=== PATIENT | female | born 1945 | race African-American/Black ===

== ENCOUNTER 2017-03-09 11:20 | Inpatient (IN) | payer MEDICARE, OTHER ==
[2017-03-09 12:52] LABS: ADD MAN DIFF? NO
[2017-03-09 12:53] LABS: WHITE BLOOD COUNT 14.6 10^3/ul (4.8-10.8)
[2017-03-09 12:53] LABS: BASOPHILS % 0.1 % (0.0-2.0); HEMATOCRIT 32.5 % (37.0-47.0); LYMPHOCYTES # 0.6 10^3/ul (0.8-2.9); LYMPHOCYTES % 4.3 % (15.0-51.0); MEAN CORPUSCULAR HEMOGLOBIN 29.1 pg (29.0-33.0); MEAN CORPUSCULAR HGB CONC 33.8 g/dl (32.0-37.0); MEAN PLATELET VOLUME 9.1 fl (7.4-10.4); MONOCYTE # 0.5 10^3/ul (0.3-0.9); MONOCYTES % 3.5 % (0.0-11.0); NEUTROPHIL # 13.3 10^3/ul (1.6-7.5); NEUTROPHILS % 90.9 % (39.0-77.0); PLATELET COUNT 569 10^3/UL (140-415); RED BLOOD COUNT 3.78 10^6/ul (4.20-5.40); RED CELL DISTRIBUTION WIDTH 15.8 % (11.5-14.5)
[2017-03-09] MEDS: ONDANSETRON 4 MG INJ IV (12:57)
[2017-03-09] MEDS: HYDROmorphONE 1 MG/ML SYG IV (12:57)
[2017-03-09 13:12] LABS: INR 1.13; PROTIME 14.7 Sec (11.9-14.9); PT RATIO 1.1
[2017-03-09 13:14] LABS: ALANINE AMINOTRANSFERASE 30 IU/L (13-69); ALBUMIN 4.3 g/dl (3.3-4.9); ALBUMIN/GLOBULIN RATIO 1.04; ALKALINE PHOSPHATASE 183 IU/L (42-121); ANION GAP 25 (8-16); ASPARTATE AMINO TRANSFERASE 44 IU/L (15-46); BLOOD UREA NITROGEN 34 mg/dl (7-20); CALCIUM 10.7 mg/dl (8.4-10.2); CARBON DIOXIDE 23 mmol/L (21-31); CHLORIDE 94 mmol/L (97-110); CREATININE 1.61 mg/dl (0.44-1.00); GLUCOSE 180 mg/dl (70-220); LIPASE 90 U/L (23-300); POTASSIUM 4.5 mmol/L (3.5-5.1); SODIUM 137 mmol/L (135-144); TOTAL PROTEIN 8.4 g/dl (6.1-8.1)
[2017-03-09] MEDS: morphine 4 MG/ML VIAL IV (13:23)
[2017-03-09 14:04] LABS: TROPONIN-I < 0.012 ng/ml (0.00-0.12)
[2017-03-09] MEDS ORDERED: ONDANSETRON 4 MG INJ IV (15:00)
[2017-03-09] MEDS ORDERED: ACETAMINOPHEN 325 MG TAB PO (15:00)
[2017-03-09 16:47] LABS: LACTIC ACID 1.2 mmol/L (0.5-2.0)
[2017-03-09] MEDS ORDERED: NALOXONE (0.4 MG/ML) INJ (17:49)
[2017-03-09] MEDS: NALOXONE (0.4 MG/ML) INJ IV (19:09)
[2017-03-09] MEDS: SOD CHLORIDE 0.9% 1,000 ML IV (19:13)
[2017-03-09] MEDS: ROPINIROLE 0.25 MG TAB PO (22:06)
[2017-03-09] MEDS: METOPROLOL 50 MG TAB PO (22:06)
[2017-03-09] MEDS: metroNIDAZOLE 500 MG/NS (PMX) 100 ML IVPB (22:06)
[2017-03-09] MEDS: D5W-0.45 NACL + KCL 20 MEQ 1,000 ML IV (22:07)
[2017-03-09] MEDS: AMPICILLIN/SULB 3 GM/NS (PMX) 100 ML IVPB (22:40)
[2017-03-09 22:41] LABS: LACTIC ACID 1.1 mmol/L (0.5-2.0)
[2017-03-10] MEDS: HYDROmorphONE 2 MG/ML SYG IV ×3 (00:06→08:14)
[2017-03-10 01:27] LABS: LACTIC ACID 0.9 mmol/L (0.5-2.0)
[2017-03-10 05:41] LABS: WHITE BLOOD COUNT 12.7 10^3/ul (4.8-10.8)
[2017-03-10 05:41] LABS: HEMATOCRIT 29.9 % (37.0-47.0); HEMOGLOBIN 9.8 g/dl (12.0-16.0); MEAN CORPUSCULAR HEMOGLOBIN 28.3 pg (29.0-33.0); MEAN CORPUSCULAR HGB CONC 32.8 g/dl (32.0-37.0); MEAN CORPUSCULAR VOLUME 86.4 fl (82.0-101.0); MEAN PLATELET VOLUME 9.1 fl (7.4-10.4); PLATELET COUNT 505 10^3/UL (140-415); RED BLOOD COUNT 3.46 10^6/ul (4.20-5.40); RED CELL DISTRIBUTION WIDTH 15.9 % (11.5-14.5)
[2017-03-10] MEDS: metroNIDAZOLE 500 MG/NS (PMX) 100 ML IVPB ×2 (05:49→14:28)
[2017-03-10 05:57] LABS: POSITIVE DIFF @See below
[2017-03-10 05:58] LABS: ADD MAN DIFF? YES
[2017-03-10 06:14] LABS: AADO2 Arterial 555.2 mmHg (7.0-24.0); Allen Test ACCEPTAB; Arterial Base Excess 1.8 mmol/L (-3.0-3); Arterial Blood Gas Oxygen Sat 96.5 mmHG (95.0-100.0); Arterial COHb 0 % (0.0-3.0); Arterial Fraction of Oxyhgb 96.2 % (93.0-99.0); Arterial HCO3 29.5 mmol/L (22.0-26.0); Arterial MetHb 0.3 % (0.0-1.5); Arterial Total Hemglobin 11.1 g/dl (12.0-18.0); Arterial pCO2 63.3 mmhg (35-45); MODE MASK - NRB; Site Right Radial
[2017-03-10 06:24] LABS: ALANINE AMINOTRANSFERASE 25 IU/L (13-69); ALBUMIN 3.8 g/dl (3.3-4.9); ALBUMIN/GLOBULIN RATIO 0.92; ALKALINE PHOSPHATASE 148 IU/L (42-121); ANION GAP 18 (8-16); ASPARTATE AMINO TRANSFERASE 42 IU/L (15-46); BLOOD UREA NITROGEN 34 mg/dl (7-20); CALCIUM 10.2 mg/dl (8.4-10.2); CARBON DIOXIDE 30 mmol/L (21-31); CHLORIDE 95 mmol/L (97-110); CREATININE 1.41 mg/dl (0.44-1.00); GLUCOSE 181 mg/dl (70-220); POTASSIUM 5.2 mmol/L (3.5-5.1); SODIUM 138 mmol/L (135-144); TOTAL PROTEIN 7.9 g/dl (6.1-8.1)
[2017-03-10] MEDS: D5W-0.45 NACL + KCL 20 MEQ 1,000 ML IV ×2 (07:30→14:28)
[2017-03-10 07:46] LABS: ERYTHROCYTE SEDIMENTATION RATE 133 mm/Hr (0-30)
[2017-03-10] MEDS: NALOXONE (0.4 MG/ML) INJ IV (07:54)
[2017-03-10 08:02] LABS: BAND NEUTROPHILS #M 0.3 10^3/ul (0.0-0.6); BAND NEUTROPHILS % (M) 3 % (0-4); ELLIPTO 1+ (0-0); HYPOCHROMASIA 1+ (0-0); LYMPHOCYTES #M 0.8 10^3/ul (0.8-2.9); LYMPHOCYTES % (M) 7 % (15-51); MONOCYTE #M 0.8 10^3/ul (0.3-0.9); MONOCYTES % (M) 7 % (0-11); PLATELET ESTIMATE INCREASED; POIKILOCYTOSIS 1+ (0-0); POLYCHROMASIA 1+ (0-0); REACTIVE LYMPHOCYTES #M 0.1 10^3/ul (0.0-0.0); REACTIVE LYMPHOCYTES% (M) 1 % (0-0); SEG NEUT #M 10.5 10^3/ul (1.6-7.5); SEGMENTED NEUTROPHILS (M) % 82 % (39-77); SMUDGE%M 2 % (0-0); TARGET CELLS 1+ (0-0)
[2017-03-10] MEDS: METOPROLOL 50 MG TAB PO (09:00)
[2017-03-10] MEDS ORDERED: morphine 2 MG INJ (10:22)
[2017-03-10] MEDS: BUPROPION 75 MG TAB PO (10:26)
[2017-03-10] MEDS: AMPICILLIN/SULB 3 GM/NS (PMX) 100 ML IVPB (10:26)
[2017-03-10] MEDS: ARIPIPRAZOLE 10 MG TAB PO (10:26)
[2017-03-10] MEDS: morphine 2 MG INJ IV (10:27)
[2017-03-10] MEDS ORDERED: VANCOMYCIN IV PER PHARMACY XX (16:00)
[2017-03-10] MEDS: LORAZEPAM 2 MG INJ IV (16:33)
[2017-03-10] MEDS ORDERED: GLUCOSE GEL 15 GRAM TUBE PO ×2 (17:00)
[2017-03-10] MEDS ORDERED: GLUCAGON 1 MG INJ IM (17:00)
[2017-03-10] MEDS ORDERED: DEXTROSE 50% 50 ML SYRINGE IV ×2 (17:00)
[2017-03-10] MEDS ORDERED: GLUCOSE GEL 15 GRAM TUBE BUCCAL (17:00)
[2017-03-10] MEDS: VANCOMYCIN 1 GM 250 ML IVPB (17:27)
[2017-03-10] MEDS: INSULIN ASPART [NOVOLOG] 3 ML PEN SC ×2 (17:30→20:40)
[2017-03-10] MEDS: PIPER-TAZO 2.25 GM (PMX) 50 ML IVPB ×2 (17:37→23:55)
[2017-03-10] MEDS: ALPRAZOLAM 0.5 MG TAB PO (20:32)
[2017-03-10] MEDS: QUETIAPINE 25 MG TAB PO (20:33)
[2017-03-10] MEDS ORDERED: ALPRAZOLAM 1 MG TAB PO (21:00)
[2017-03-10] MEDS: ROPINIROLE 0.25 MG TAB PO (22:30)
[2017-03-11] MEDS: INSULIN ASPART [NOVOLOG] 3 ML PEN SC ×6 (00:53→21:00)
[2017-03-11] MEDS: D5W-0.45 NACL + KCL 20 MEQ 1,000 ML IV ×3 (03:30→22:24)
[2017-03-11] MEDS: PIPER-TAZO 2.25 GM (PMX) 50 ML IVPB ×4 (05:11→23:06)
[2017-03-11] MEDS ORDERED: ALPRAZOLAM 0.25 MG TAB PO (09:10)
[2017-03-11] MEDS ORDERED: ZOLEDRONIC ACID 4 MG in SOD CHLORIDE 0.9% 100 ML IVPB (09:30)
[2017-03-11] MEDS: HYDROmorphONE 0.2 MG/ML PCA IV ×2 (10:27→22:31)
[2017-03-11] MEDS ORDERED: ACETAMINOPHEN 1000MG/100ML IV 100 ML IVPB (11:00)
[2017-03-11] MEDS ORDERED: ALPRAZOLAM 0.25 MG TAB (11:48)
[2017-03-11] MEDS: ALPRAZOLAM 0.25 MG TAB PO ×2 (11:51→21:03)
[2017-03-11 12:06] LABS: ADD MAN DIFF? NO
[2017-03-11 12:10] LABS: WHITE BLOOD COUNT 8.9 10^3/ul (4.8-10.8)
[2017-03-11 12:10] LABS: BASOPHILS % 0.1 % (0.0-2.0); EOSINOPHILS % 0.2 % (0.0-7.0); HEMATOCRIT 29.6 % (37.0-47.0); HEMOGLOBIN 9.9 g/dl (12.0-16.0); LYMPHOCYTES # 0.9 10^3/ul (0.8-2.9); LYMPHOCYTES % 10.1 % (15.0-51.0); MEAN CORPUSCULAR HEMOGLOBIN 28.6 pg (29.0-33.0); MEAN CORPUSCULAR HGB CONC 33.4 g/dl (32.0-37.0); MEAN CORPUSCULAR VOLUME 85.5 fl (82.0-101.0); MEAN PLATELET VOLUME 8.8 fl (7.4-10.4); MONOCYTE # 0.7 10^3/ul (0.3-0.9); MONOCYTES % 8.3 % (0.0-11.0); NEUTROPHIL # 7.2 10^3/ul (1.6-7.5); NEUTROPHILS % 80.5 % (39.0-77.0); PLATELET COUNT 495 10^3/UL (140-415); RED BLOOD COUNT 3.46 10^6/ul (4.20-5.40); RED CELL DISTRIBUTION WIDTH 15.7 % (11.5-14.5)
[2017-03-11 12:33] LABS: ANION GAP 13 (8-16); BLOOD UREA NITROGEN 18 mg/dl (7-20); CALCIUM 10.2 mg/dl (8.4-10.2); CARBON DIOXIDE 28 mmol/L (21-31); CHLORIDE 101 mmol/L (97-110); CREATININE 0.89 mg/dl (0.44-1.00); GLUCOSE 142 mg/dl (70-220); POTASSIUM 3.9 mmol/L (3.5-5.1); SODIUM 138 mmol/L (135-144)
[2017-03-11] MEDS: METHADONE (1 MG/1 ML PO SYG) PO ×2 (13:14→21:06)
[2017-03-11] MEDS ORDERED: VANCOMYCIN 500MG/NS (PMX) 100 ML IVPB (17:00)
[2017-03-11] MEDS: QUETIAPINE 25 MG TAB PO (21:04)
[2017-03-11] MEDS: ROPINIROLE 0.25 MG TAB PO (21:05)
[2017-03-11] MEDS: METHYLPREDNISOLONE 125 MG INJ IV (21:09)
[2017-03-12] MEDS: hydrALAzine 20 MG INJ IV ×3 (00:47→17:30)
[2017-03-12] MEDS: INSULIN ASPART [NOVOLOG] 3 ML PEN SC ×6 (01:00→22:13)
[2017-03-12] MEDS: PIPER-TAZO 2.25 GM (PMX) 50 ML IVPB ×2 (06:21→11:26)
[2017-03-12] MEDS: METHADONE (1 MG/1 ML PO SYG) PO ×3 (06:22→22:16)
[2017-03-12] MEDS: ALPRAZOLAM 0.25 MG TAB PO ×2 (06:31→22:26)
[2017-03-12 08:55] LABS: ADD MAN DIFF? NO
[2017-03-12 09:03] LABS: ABNORMAL IP MESSAGE 1; HEMATOCRIT 29.2 % (37.0-47.0); HEMOGLOBIN 9.7 g/dl (12.0-16.0); LYMPHOCYTES # 0.6 10^3/ul (0.8-2.9); LYMPHOCYTES % 7.5 % (15.0-51.0); MEAN CORPUSCULAR HEMOGLOBIN 28.4 pg (29.0-33.0); MEAN CORPUSCULAR HGB CONC 33.2 g/dl (32.0-37.0); MEAN CORPUSCULAR VOLUME 85.6 fl (82.0-101.0); MEAN PLATELET VOLUME 8.9 fl (7.4-10.4); MONOCYTE # 0.4 10^3/ul (0.3-0.9); MONOCYTES % 4.9 % (0.0-11.0); NEUTROPHIL # 6.3 10^3/ul (1.6-7.5); NEUTROPHILS % 86.1 % (39.0-77.0); PLATELET COUNT 487 10^3/UL (140-415); RED BLOOD COUNT 3.41 10^6/ul (4.20-5.40); RED CELL DISTRIBUTION WIDTH 15.9 % (11.5-14.5)
[2017-03-12 09:03] LABS: WHITE BLOOD COUNT 7.4 10^3/ul (4.8-10.8)
[2017-03-12 09:07] LABS: POSITIVE DIFF @See below
[2017-03-12 09:36] LABS: ANION GAP 14 (8-16); BLOOD UREA NITROGEN 13 mg/dl (7-20); CALCIUM 9.5 mg/dl (8.4-10.2); CARBON DIOXIDE 26 mmol/L (21-31); CHLORIDE 102 mmol/L (97-110); CREATININE 0.82 mg/dl (0.44-1.00); GLUCOSE 150 mg/dl (70-220); POTASSIUM 4.6 mmol/L (3.5-5.1); SODIUM 137 mmol/L (135-144)
[2017-03-12] MEDS: METHYLPREDNISOLONE 125 MG INJ IV ×2 (09:49→22:15)
[2017-03-12] MEDS: HYDROmorphONE 0.2 MG/ML PCA IV (11:15)
[2017-03-12] MEDS: D5W-0.45 NACL + KCL 20 MEQ 1,000 ML IV ×2 (13:00→19:30)
[2017-03-12] MEDS: CEFTRIAXONE 1 GM/50 ML (PMX) 50 ML IVPB (16:15)
[2017-03-12] MEDS: ACETAMINOPHEN 1000MG/100ML IV 100 ML IVPB (17:30)
[2017-03-12] MEDS: ROPINIROLE 0.25 MG TAB PO (22:08)
[2017-03-12] MEDS: QUETIAPINE 25 MG TAB PO (22:14)
[2017-03-13] MEDS: QUETIAPINE 25 MG TAB PO ×2 (00:27→20:13)
[2017-03-13] MEDS: ACETAMINOPHEN 1000MG/100ML IV 100 ML IVPB ×5 (00:28→19:30)
[2017-03-13] MEDS: D5W-0.45 NACL + KCL 20 MEQ 1,000 ML IV ×2 (00:34→11:31)
[2017-03-13] MEDS: INSULIN ASPART [NOVOLOG] 3 ML PEN SC ×6 (00:57→20:13)
[2017-03-13] MEDS: hydrALAzine 20 MG INJ IV ×4 (03:35→23:27)
[2017-03-13] MEDS: METHADONE (1 MG/1 ML PO SYG) PO ×3 (06:51→21:10)
[2017-03-13 09:27] LABS: ADD MAN DIFF? NO
[2017-03-13 09:34] LABS: WHITE BLOOD COUNT 8.8 10^3/ul (4.8-10.8)
[2017-03-13 09:34] LABS: HEMATOCRIT 28.3 % (37.0-47.0); HEMOGLOBIN 9.6 g/dl (12.0-16.0); LYMPHOCYTES # 0.6 10^3/ul (0.8-2.9); LYMPHOCYTES % 7.2 % (15.0-51.0); MEAN CORPUSCULAR HEMOGLOBIN 28.9 pg (29.0-33.0); MEAN CORPUSCULAR HGB CONC 33.9 g/dl (32.0-37.0); MEAN CORPUSCULAR VOLUME 85.2 fl (82.0-101.0); MEAN PLATELET VOLUME 9.2 fl (7.4-10.4); MONOCYTE # 0.4 10^3/ul (0.3-0.9); MONOCYTES % 4.1 % (0.0-11.0); NEUTROPHIL # 7.7 10^3/ul (1.6-7.5); NEUTROPHILS % 87.1 % (39.0-77.0); PLATELET COUNT 478 10^3/UL (140-415); RED BLOOD COUNT 3.32 10^6/ul (4.20-5.40); RED CELL DISTRIBUTION WIDTH 15.8 % (11.5-14.5)
[2017-03-13] MEDS: METHYLPREDNISOLONE 125 MG INJ IV ×2 (10:34→20:12)
[2017-03-13] MEDS: HYDROmorphONE 0.2 MG/ML PCA IV (11:33)
[2017-03-13] MEDS: ALPRAZOLAM 0.25 MG TAB PO ×2 (11:44→23:26)
[2017-03-13] MEDS: FERROUS FUMARATE (SR) TAB PO (15:20)
[2017-03-13] MEDS: CEFTRIAXONE 1 GM/50 ML (PMX) 50 ML IVPB (17:17)
[2017-03-13] MEDS: ROPINIROLE 0.25 MG TAB PO (20:12)
[2017-03-13] MEDS: METOPROLOL 50 MG TAB PO (20:13)
[2017-03-14] MEDS: ACETAMINOPHEN 1000MG/100ML IV 100 ML IVPB ×5 (00:31→23:30)
[2017-03-14] MEDS: NS + KCL 20 MEQ 1,000 ML IV ×2 (00:55→13:31)
[2017-03-14] MEDS: METHADONE (1 MG/1 ML PO SYG) PO ×3 (05:06→21:56)
[2017-03-14] MEDS: HYDROmorphONE 0.2 MG/ML PCA IV (05:25)
[2017-03-14] MEDS: FERROUS FUMARATE (SR) TAB PO (08:16)
[2017-03-14] MEDS: METOPROLOL 50 MG TAB PO ×2 (08:16→20:31)
[2017-03-14] MEDS: NIFEdipine (XL) 90 MG TAB PO (08:16)
[2017-03-14] MEDS: METHYLPREDNISOLONE 125 MG INJ IV ×2 (08:17→20:32)
[2017-03-14] MEDS: hydrALAzine 20 MG INJ IV (10:16)
[2017-03-14] MEDS: LIDOCAINE 1% (MDV) 20 ML INJ ×2 (10:40→15:10)
[2017-03-14] MEDS: ALPRAZOLAM 0.25 MG TAB PO (12:01)
[2017-03-14 12:03] LABS: NIL 0.04 IU/mL; QUANTIFERON(R)-TB GOLD INDETERMINATE (NEGATIVE); TB-NIL <0.00 IU/mL
[2017-03-14] MEDS: FENTAnyl 50 MCG/ML VIAL ×2 (15:09→15:41)
[2017-03-14] MEDS: MIDAZOLAM 1 MG/ML 2 ML INJ ×2 (15:10→15:42)
[2017-03-14] MEDS: SOD CHLORIDE 0.9% 500 ML (15:10)
[2017-03-14] MEDS: CEFTRIAXONE 1 GM/50 ML (PMX) 50 ML IVPB (17:05)
[2017-03-14] MEDS: ROPINIROLE 0.25 MG TAB PO (20:29)
[2017-03-14] MEDS: QUETIAPINE 25 MG TAB PO (20:30)
[2017-03-14] MEDS: ALPRAZOLAM 1 MG TAB PO (21:55)
[2017-03-14] MEDS ORDERED: ALPRAZOLAM 0.25 MG TAB PO (22:00)
[2017-03-15] MEDS: HYDROmorphONE 0.2 MG/ML PCA IV ×2 (01:33→18:45)
[2017-03-15] MEDS: NS + KCL 20 MEQ 1,000 ML IV ×3 (03:36→21:15)
[2017-03-15] MEDS: ACETAMINOPHEN 1000MG/100ML IV 100 ML IVPB ×4 (05:03→22:41)
[2017-03-15] MEDS: hydrALAzine 20 MG INJ IV (05:05)
[2017-03-15] MEDS: ALPRAZOLAM 1 MG TAB PO ×3 (06:08→21:05)
[2017-03-15] MEDS: METHADONE (1 MG/1 ML PO SYG) PO ×3 (06:08→21:25)
[2017-03-15 08:18] LABS: ADD MAN DIFF? NO
[2017-03-15 08:25] LABS: WHITE BLOOD COUNT 9.1 10^3/ul (4.8-10.8)
[2017-03-15 08:25] LABS: BASOPHILS % 0.1 % (0.0-2.0); HEMATOCRIT 25.2 % (37.0-47.0); HEMOGLOBIN 8.5 g/dl (12.0-16.0); LYMPHOCYTES # 1.2 10^3/ul (0.8-2.9); LYMPHOCYTES % 12.9 % (15.0-51.0); MEAN CORPUSCULAR HEMOGLOBIN 28.7 pg (29.0-33.0); MEAN CORPUSCULAR HGB CONC 33.7 g/dl (32.0-37.0); MEAN CORPUSCULAR VOLUME 85.1 fl (82.0-101.0); MEAN PLATELET VOLUME 8.4 fl (7.4-10.4); MONOCYTE # 0.6 10^3/ul (0.3-0.9); MONOCYTES % 6.1 % (0.0-11.0); NEUTROPHIL # 7.2 10^3/ul (1.6-7.5); NEUTROPHILS % 79.6 % (39.0-77.0); PLATELET COUNT 415 10^3/UL (140-415); RED BLOOD COUNT 2.96 10^6/ul (4.20-5.40)
[2017-03-15] MEDS: FERROUS FUMARATE (SR) TAB PO (08:35)
[2017-03-15] MEDS: PROMETHAZINE 25 MG TAB PO (08:35)
[2017-03-15] MEDS: METOPROLOL 50 MG TAB PO ×2 (08:35→21:05)
[2017-03-15] MEDS: METHYLPREDNISOLONE 125 MG INJ IV ×2 (08:36→21:06)
[2017-03-15] MEDS: NIFEdipine (XL) 90 MG TAB PO (08:36)
[2017-03-15 08:58] LABS: ALANINE AMINOTRANSFERASE 41 IU/L (13-69); ALBUMIN/GLOBULIN RATIO 0.93; ALKALINE PHOSPHATASE 123 IU/L (42-121); ANION GAP 12 (8-16); ASPARTATE AMINO TRANSFERASE 43 IU/L (15-46); BLOOD UREA NITROGEN 13 mg/dl (7-20); CARBON DIOXIDE 24 mmol/L (21-31); CHLORIDE 106 mmol/L (97-110); CREATININE 0.66 mg/dl (0.44-1.00); GLUCOSE 109 mg/dl (70-220); POTASSIUM 3.7 mmol/L (3.5-5.1); SODIUM 138 mmol/L (135-144); TOTAL PROTEIN 6.2 g/dl (6.1-8.1)
[2017-03-15 09:21] LABS: PREALBUMIN 20.1 mg/dl (17.6-36.0)
[2017-03-15] MEDS: INFLUENZA VIRUS VACCINE 0.5 ML SYG IM* (13:53)
[2017-03-15] MEDS: CEFTRIAXONE 1 GM/50 ML (PMX) 50 ML IVPB (16:26)
[2017-03-15] MEDS: QUETIAPINE 25 MG TAB PO (21:06)
[2017-03-15] MEDS: ROPINIROLE 0.25 MG TAB PO (21:13)
[2017-03-16] MEDS: METHADONE (1 MG/1 ML PO SYG) PO ×3 (05:08→21:23)
[2017-03-16] MEDS: ACETAMINOPHEN 1000MG/100ML IV 100 ML IVPB ×4 (05:08→22:55)
[2017-03-16] MEDS: ALPRAZOLAM 1 MG TAB PO ×3 (05:08→21:23)
[2017-03-16 06:34] LABS: ADD MAN DIFF? NO
[2017-03-16 06:46] LABS: WHITE BLOOD COUNT 7.8 10^3/ul (4.8-10.8)
[2017-03-16 06:46] LABS: BASOPHILS % 0.1 % (0.0-2.0); HEMATOCRIT 26.4 % (37.0-47.0); HEMOGLOBIN 8.9 g/dl (12.0-16.0); LYMPHOCYTES # 0.8 10^3/ul (0.8-2.9); LYMPHOCYTES % 10.8 % (15.0-51.0); MEAN CORPUSCULAR HEMOGLOBIN 28.7 pg (29.0-33.0); MEAN CORPUSCULAR HGB CONC 33.7 g/dl (32.0-37.0); MEAN CORPUSCULAR VOLUME 85.2 fl (82.0-101.0); MONOCYTE # 0.4 10^3/ul (0.3-0.9); MONOCYTES % 4.6 % (0.0-11.0); NEUTROPHIL # 6.4 10^3/ul (1.6-7.5); NEUTROPHILS % 82.8 % (39.0-77.0); PLATELET COUNT 437 10^3/UL (140-415); RED CELL DISTRIBUTION WIDTH 16.5 % (11.5-14.5); RETICULOCYTE COUNT # 0.056 X10^6 (0.020-0.110); RETICULOCYTE COUNT % 1.8 % (0.5-1.5)
[2017-03-16 07:09] LABS: IRON 46 ug/dl (35-150)
[2017-03-16 07:19] LABS: % IRON SATURATION 27 % SAT (22-52); TOTAL IRON BINDING CAPACITY 171 ug/dl (241-421)
[2017-03-16 07:43] LABS: THYROID STIMULATING HORMONE 0.057 MIU/L (0.465-4.680)
[2017-03-16] MEDS: NS + KCL 20 MEQ 1,000 ML IV ×3 (08:12→22:30)
[2017-03-16 08:18] LABS: FOLATE 8.5 ng/ml (2.8-20.0)
[2017-03-16] MEDS: METHYLPREDNISOLONE 125 MG INJ IV ×2 (08:18→21:22)
[2017-03-16] MEDS: NIFEdipine (XL) 90 MG TAB PO (08:20)
[2017-03-16] MEDS: METOPROLOL 50 MG TAB PO ×2 (08:20→21:22)
[2017-03-16] MEDS: FERROUS FUMARATE (SR) TAB PO (08:21)
[2017-03-16] MEDS: HYDROmorphONE 0.2 MG/ML PCA IV (10:22)
[2017-03-16] MEDS: CEFTRIAXONE 1 GM/50 ML (PMX) 50 ML IVPB (16:35)
[2017-03-16] MEDS: QUETIAPINE 25 MG TAB PO (21:22)
[2017-03-16] MEDS: BUPROPION 75 MG TAB PO (21:22)
[2017-03-16] MEDS: ROPINIROLE 0.25 MG TAB PO (21:23)
[2017-03-17] MEDS: HYDROmorphONE 0.2 MG/ML PCA IV ×2 (02:07→16:06)
[2017-03-17] MEDS: hydrALAzine 20 MG INJ IV (02:15)
[2017-03-17] MEDS: ACETAMINOPHEN 1000MG/100ML IV 100 ML IVPB ×3 (05:46→18:05)
[2017-03-17] MEDS: METHADONE (1 MG/1 ML PO SYG) PO ×3 (05:47→21:12)
[2017-03-17] MEDS: ALPRAZOLAM 1 MG TAB PO ×3 (05:47→21:13)
[2017-03-17] MEDS: NS + KCL 20 MEQ 1,000 ML IV ×2 (06:00→12:48)
[2017-03-17 06:13] LABS: ADD MAN DIFF? NO
[2017-03-17 06:19] LABS: HEMATOCRIT 24.9 % (37.0-47.0); HEMOGLOBIN 8.3 g/dl (12.0-16.0); LYMPHOCYTES # 0.9 10^3/ul (0.8-2.9); MEAN CORPUSCULAR HEMOGLOBIN 28.6 pg (29.0-33.0); MEAN CORPUSCULAR HGB CONC 33.3 g/dl (32.0-37.0); MEAN CORPUSCULAR VOLUME 85.9 fl (82.0-101.0); MEAN PLATELET VOLUME 9.3 fl (7.4-10.4); MONOCYTE # 0.4 10^3/ul (0.3-0.9); NEUTROPHIL # 7.3 10^3/ul (1.6-7.5); PLATELET COUNT 446 10^3/UL (140-415); RED CELL DISTRIBUTION WIDTH 16.7 % (11.5-14.5)
[2017-03-17 06:19] LABS: WHITE BLOOD COUNT 8.8 10^3/ul (4.8-10.8)
[2017-03-17 07:01] LABS: ANION GAP 11 (8-16); BLOOD UREA NITROGEN 15 mg/dl (7-20); CALCIUM 8.8 mg/dl (8.4-10.2); CARBON DIOXIDE 22 mmol/L (21-31); CHLORIDE 112 mmol/L (97-110); CREATININE 0.66 mg/dl (0.44-1.00); GLUCOSE 123 mg/dl (70-220); POTASSIUM 4.2 mmol/L (3.5-5.1); SODIUM 141 mmol/L (135-144)
[2017-03-17] MEDS: NIFEdipine (XL) 90 MG TAB PO (08:23)
[2017-03-17] MEDS: BUPROPION 75 MG TAB PO ×2 (08:25→20:36)
[2017-03-17] MEDS: METOPROLOL 50 MG TAB PO ×2 (08:25→20:37)
[2017-03-17] MEDS: FERROUS FUMARATE (SR) TAB PO (08:26)
[2017-03-17] MEDS: METHYLPREDNISOLONE 125 MG INJ IV ×2 (08:26→20:36)
[2017-03-17] MEDS: ARIPIPRAZOLE 5 MG TAB PO (08:26)
[2017-03-17] MEDS ORDERED: ZOLEDRONIC ACID 4 MG in SOD CHLORIDE 0.9% 100 ML IVPB (11:00)
[2017-03-17 11:41] LABS: CARCINOEMBRYONIC ANTIGEN 2.3 ng/ml (0.0-5.0)
[2017-03-17] MEDS: SOD CHLORIDE 0.9% IVPB (16:08)
[2017-03-17] MEDS: ZOLEDRONIC ACID IVPB (16:08)
[2017-03-17] MEDS: CEFTRIAXONE 1 GM/50 ML (PMX) 50 ML IVPB (16:15)
[2017-03-17] MEDS: ROPINIROLE 0.25 MG TAB PO (20:36)
[2017-03-17] MEDS: QUETIAPINE 25 MG TAB PO (20:36)
[2017-03-18] MEDS: ACETAMINOPHEN 1000MG/100ML IV 100 ML IVPB ×5 (00:12→23:53)
[2017-03-18] MEDS: NS + KCL 20 MEQ 1,000 ML IV ×2 (00:15→15:37)
[2017-03-18] MEDS: DIPHENHYDRAMINE 50 MG INJ IV (00:30)
[2017-03-18] MEDS: FUROSEMIDE 20 MG INJ IV (00:30)
[2017-03-18] MEDS: ACETAMINOPHEN 500 MG TAB PO (00:30)
[2017-03-18] MEDS: ALPRAZOLAM 1 MG TAB PO ×3 (05:47→21:35)
[2017-03-18] MEDS: METHADONE (1 MG/1 ML PO SYG) PO ×2 (05:48→14:06)
[2017-03-18] MEDS: ARIPIPRAZOLE 5 MG TAB PO ×2 (09:19→09:29)
[2017-03-18] MEDS: METHYLPREDNISOLONE 125 MG INJ IV ×2 (09:19→20:39)
[2017-03-18] MEDS: FERROUS FUMARATE (SR) TAB PO (09:20)
[2017-03-18] MEDS: BUPROPION 75 MG TAB PO ×2 (09:20→20:39)
[2017-03-18] MEDS: NIFEdipine (XL) 90 MG TAB PO (09:22)
[2017-03-18] MEDS: METOPROLOL 50 MG TAB PO ×2 (09:22→20:39)
[2017-03-18] MEDS: HYDROmorphONE 0.2 MG/ML PCA IV (11:28)
[2017-03-18] MEDS: hydrALAzine 20 MG INJ IV (13:13)
[2017-03-18] MEDS: CEFTRIAXONE 1 GM/50 ML (PMX) 50 ML IVPB (15:38)
[2017-03-18 16:11] LABS: HEMATOCRIT 26.2 % (37.0-47.0); HEMOGLOBIN 8.8 g/dl (12.0-16.0)
[2017-03-18] MEDS: ROPINIROLE 0.25 MG TAB PO (20:38)
[2017-03-18] MEDS: QUETIAPINE 25 MG TAB PO (20:38)
[2017-03-18] MEDS: METHADONE (1 MG/ML 5 ML PO UD SYG) PO (21:37)
[2017-03-19] MEDS: ACETAMINOPHEN 1000MG/100ML IV 100 ML IVPB ×3 (05:26→17:30)
[2017-03-19] MEDS: METHADONE (1 MG/ML 5 ML PO UD SYG) PO ×3 (05:26→22:28)
[2017-03-19] MEDS: ALPRAZOLAM 1 MG TAB PO ×3 (05:26→22:29)
[2017-03-19] MEDS: HYDROmorphONE 0.2 MG/ML PCA IV ×2 (05:27→18:17)
[2017-03-19 05:37] LABS: ADD MAN DIFF? NO
[2017-03-19 05:44] LABS: WHITE BLOOD COUNT 8.6 10^3/ul (4.8-10.8)
[2017-03-19 05:44] LABS: BASOPHILS % 0.1 % (0.0-2.0); EOSINOPHILS % 0.1 % (0.0-7.0); HEMOGLOBIN 7.8 g/dl (12.0-16.0); LYMPHOCYTES # 0.7 10^3/ul (0.8-2.9); LYMPHOCYTES % 7.7 % (15.0-51.0); MEAN CORPUSCULAR HEMOGLOBIN 29.1 pg (29.0-33.0); MEAN CORPUSCULAR HGB CONC 33.9 g/dl (32.0-37.0); MEAN CORPUSCULAR VOLUME 85.8 fl (82.0-101.0); MEAN PLATELET VOLUME 9.4 fl (7.4-10.4); MONOCYTE # 0.3 10^3/ul (0.3-0.9); NEUTROPHIL # 7.3 10^3/ul (1.6-7.5); NEUTROPHILS % 84.9 % (39.0-77.0); NUCLEATED RED BLOOD CELLS% 0.2 /100WBC (0.0-0.0); PLATELET COUNT 421 10^3/UL (140-415); RED BLOOD COUNT 2.68 10^6/ul (4.20-5.40); RED CELL DISTRIBUTION WIDTH 17.4 % (11.5-14.5)
[2017-03-19 06:02] LABS: ANION GAP 14 (8-16); BLOOD UREA NITROGEN 12 mg/dl (7-20); CALCIUM 7.7 mg/dl (8.4-10.2); CARBON DIOXIDE 24 mmol/L (21-31); CHLORIDE 111 mmol/L (97-110); CREATININE 0.61 mg/dl (0.44-1.00); GLUCOSE 112 mg/dl (70-220); POTASSIUM 4.1 mmol/L (3.5-5.1); SODIUM 145 mmol/L (135-144)
[2017-03-19] MEDS: NS + KCL 20 MEQ 1,000 ML IV ×3 (07:42→22:00)
[2017-03-19] MEDS: METOPROLOL 50 MG TAB PO ×2 (08:28→20:52)
[2017-03-19] MEDS: NIFEdipine (XL) 90 MG TAB PO (08:29)
[2017-03-19] MEDS: METHYLPREDNISOLONE 125 MG INJ IV ×2 (08:29→20:53)
[2017-03-19] MEDS: FERROUS FUMARATE (SR) TAB PO (08:29)
[2017-03-19] MEDS: BUPROPION 75 MG TAB PO ×2 (08:29→20:52)
[2017-03-19 11:29] LABS: HEMATOCRIT 23.5 % (37.0-47.0); HEMOGLOBIN 7.9 g/dl (12.0-16.0)
[2017-03-19] MEDS: ACETAMINOPHEN 500 MG TAB PO (16:32)
[2017-03-19] MEDS: DIPHENHYDRAMINE 50 MG INJ IV (16:32)
[2017-03-19] MEDS: CEFTRIAXONE 1 GM/50 ML (PMX) 50 ML IVPB (16:44)
[2017-03-19 17:06] LABS: IMMEDIATE SPIN CROSSMATCH 1 1
[2017-03-19] MEDS: FUROSEMIDE 20 MG INJ IV (20:52)
[2017-03-19] MEDS: QUETIAPINE 25 MG TAB PO (20:52)
[2017-03-19] MEDS: ROPINIROLE 0.25 MG TAB PO (20:52)
[2017-03-20] MEDS: ACETAMINOPHEN 1000MG/100ML IV 100 ML IVPB ×4 (00:02→16:54)
[2017-03-20] MEDS: NS + KCL 20 MEQ 1,000 ML IV ×2 (03:06→17:42)
[2017-03-20 05:20] LABS: ADD MAN DIFF? NO
[2017-03-20 05:31] LABS: ABNORMAL IP MESSAGE 1; BASOPHILS % 0.1 % (0.0-2.0); HEMATOCRIT 27.8 % (37.0-47.0); HEMOGLOBIN 9.3 g/dl (12.0-16.0); LYMPHOCYTES # 0.6 10^3/ul (0.8-2.9); LYMPHOCYTES % 6.9 % (15.0-51.0); MEAN CORPUSCULAR HEMOGLOBIN 28.9 pg (29.0-33.0); MEAN CORPUSCULAR HGB CONC 33.5 g/dl (32.0-37.0); MEAN CORPUSCULAR VOLUME 86.3 fl (82.0-101.0); MEAN PLATELET VOLUME 9.2 fl (7.4-10.4); MONOCYTE # 0.3 10^3/ul (0.3-0.9); MONOCYTES % 3.7 % (0.0-11.0); NEUTROPHILS % 84.8 % (39.0-77.0); PLATELET COUNT 395 10^3/UL (140-415); RED BLOOD COUNT 3.22 10^6/ul (4.20-5.40); RED CELL DISTRIBUTION WIDTH 17.2 % (11.5-14.5)
[2017-03-20 05:31] LABS: WHITE BLOOD COUNT 8.3 10^3/ul (4.8-10.8)
[2017-03-20] MEDS: METHADONE (1 MG/ML 5 ML PO UD SYG) PO ×3 (05:31→21:59)
[2017-03-20] MEDS: ALPRAZOLAM 1 MG TAB PO ×3 (05:32→21:59)
[2017-03-20 05:38] LABS: POSITIVE DIFF @See below
[2017-03-20 06:13] LABS: ANION GAP 12 (8-16); BLOOD UREA NITROGEN 15 mg/dl (7-20); CALCIUM 7.5 mg/dl (8.4-10.2); CARBON DIOXIDE 23 mmol/L (21-31); CHLORIDE 112 mmol/L (97-110); CREATININE 0.65 mg/dl (0.44-1.00); GLUCOSE 136 mg/dl (70-220); SODIUM 143 mmol/L (135-144)
[2017-03-20] MEDS: BUPROPION 75 MG TAB PO ×2 (08:46→20:32)
[2017-03-20] MEDS: FERROUS FUMARATE (SR) TAB PO (08:46)
[2017-03-20] MEDS: NIFEdipine (XL) 90 MG TAB PO (08:48)
[2017-03-20] MEDS: METOPROLOL 50 MG TAB PO ×2 (08:48→20:32)
[2017-03-20] MEDS: METHYLPREDNISOLONE 125 MG INJ IV ×2 (08:53→20:32)
[2017-03-20] MEDS: ARIPIPRAZOLE 5 MG TAB PO (08:56)
[2017-03-20] MEDS: HYDROmorphONE 0.2 MG/ML PCA IV ×2 (10:22→22:25)
[2017-03-20] MEDS: CEFTRIAXONE 1 GM/50 ML (PMX) 50 ML IVPB (15:52)
[2017-03-20] MEDS: QUETIAPINE 25 MG TAB PO (20:32)
[2017-03-20] MEDS: ROPINIROLE 0.25 MG TAB PO (20:32)
[2017-03-21] MEDS: ACETAMINOPHEN 1000MG/100ML IV 100 ML IVPB ×5 (00:45→23:46)
[2017-03-21] MEDS: NS + KCL 20 MEQ 1,000 ML IV ×2 (02:36→08:48)
[2017-03-21 06:03] LABS: ADD MAN DIFF? NO
[2017-03-21 06:11] LABS: BASOPHILS % 0.1 % (0.0-2.0); EOSINOPHILS % 0.1 % (0.0-7.0); HEMATOCRIT 28.7 % (37.0-47.0); HEMOGLOBIN 9.7 g/dl (12.0-16.0); LYMPHOCYTES # 0.8 10^3/ul (0.8-2.9); LYMPHOCYTES % 7.2 % (15.0-51.0); MEAN CORPUSCULAR HEMOGLOBIN 29.5 pg (29.0-33.0); MEAN CORPUSCULAR HGB CONC 33.8 g/dl (32.0-37.0); MEAN CORPUSCULAR VOLUME 87.2 fl (82.0-101.0); MEAN PLATELET VOLUME 9.4 fl (7.4-10.4); MONOCYTE # 0.5 10^3/ul (0.3-0.9); MONOCYTES % 4.7 % (0.0-11.0); NEUTROPHIL # 9.2 10^3/ul (1.6-7.5); PLATELET COUNT 405 10^3/UL (140-415); RED BLOOD COUNT 3.29 10^6/ul (4.20-5.40); RED CELL DISTRIBUTION WIDTH 18.4 % (11.5-14.5)
[2017-03-21 06:11] LABS: WHITE BLOOD COUNT 10.9 10^3/ul (4.8-10.8)
[2017-03-21] MEDS: ALPRAZOLAM 1 MG TAB PO ×3 (06:18→21:47)
[2017-03-21] MEDS: METHADONE (1 MG/ML 5 ML PO UD SYG) PO ×3 (06:19→21:48)
[2017-03-21] MEDS: METOPROLOL 50 MG TAB PO ×2 (08:31→20:17)
[2017-03-21] MEDS: NIFEdipine (XL) 90 MG TAB PO (08:31)
[2017-03-21] MEDS: METHYLPREDNISOLONE 125 MG INJ IV ×2 (08:31→20:17)
[2017-03-21] MEDS: FERROUS FUMARATE (SR) TAB PO (08:32)
[2017-03-21] MEDS: BUPROPION 75 MG TAB PO ×2 (08:38→21:47)
[2017-03-21] MEDS: HYDROmorphONE 0.2 MG/ML PCA IV (13:00)
[2017-03-21 14:09] LABS: OCCULT BLOOD STOOL NEGATIVE (NEGATIVE)
[2017-03-21] MEDS: CEFTRIAXONE 1 GM/50 ML (PMX) 50 ML IVPB (16:37)
[2017-03-21] MEDS: ROPINIROLE 0.25 MG TAB PO (20:18)
[2017-03-21] MEDS: QUETIAPINE 25 MG TAB PO (20:19)
[2017-03-22] MEDS: NS + KCL 20 MEQ 1,000 ML IV ×3 (01:14→16:49)
[2017-03-22] MEDS: HYDROmorphONE 0.2 MG/ML PCA IV ×2 (04:53→19:51)
[2017-03-22] MEDS: ACETAMINOPHEN 1000MG/100ML IV 100 ML IVPB ×4 (05:07→22:39)
[2017-03-22 06:09] LABS: ADD MAN DIFF? NO
[2017-03-22] MEDS: METHADONE (1 MG/ML 5 ML PO UD SYG) PO ×3 (06:11→22:41)
[2017-03-22] MEDS: ALPRAZOLAM 1 MG TAB PO ×3 (06:11→22:40)
[2017-03-22 06:15] LABS: BASOPHILS % 0.1 % (0.0-2.0); HEMATOCRIT 28.1 % (37.0-47.0); HEMOGLOBIN 9.4 g/dl (12.0-16.0); LYMPHOCYTES # 0.8 10^3/ul (0.8-2.9); LYMPHOCYTES % 7.5 % (15.0-51.0); MEAN CORPUSCULAR HEMOGLOBIN 29.3 pg (29.0-33.0); MEAN CORPUSCULAR HGB CONC 33.5 g/dl (32.0-37.0); MEAN CORPUSCULAR VOLUME 87.5 fl (82.0-101.0); MEAN PLATELET VOLUME 9.2 fl (7.4-10.4); MONOCYTE # 0.4 10^3/ul (0.3-0.9); MONOCYTES % 4.2 % (0.0-11.0); NEUTROPHIL # 8.5 10^3/ul (1.6-7.5); NEUTROPHILS % 84.5 % (39.0-77.0); PLATELET COUNT 400 10^3/UL (140-415); RED BLOOD COUNT 3.21 10^6/ul (4.20-5.40); RED CELL DISTRIBUTION WIDTH 18.4 % (11.5-14.5)
[2017-03-22 06:59] LABS: ANION GAP 11 (8-16); BLOOD UREA NITROGEN 13 mg/dl (7-20); CARBON DIOXIDE 23 mmol/L (21-31); CHLORIDE 112 mmol/L (97-110); CREATININE 0.57 mg/dl (0.44-1.00); GLUCOSE 118 mg/dl (70-220); POTASSIUM 4.4 mmol/L (3.5-5.1); SODIUM 142 mmol/L (135-144)
[2017-03-22] MEDS: METOPROLOL 50 MG TAB PO ×2 (08:37→22:43)
[2017-03-22] MEDS: FERROUS FUMARATE (SR) TAB PO (08:37)
[2017-03-22] MEDS: METHYLPREDNISOLONE 125 MG INJ IV ×2 (08:37→22:39)
[2017-03-22] MEDS: NIFEdipine (XL) 90 MG TAB PO (08:38)
[2017-03-22] MEDS: BUPROPION 75 MG TAB PO ×2 (08:43→22:39)
[2017-03-22] MEDS: CEFTRIAXONE 1 GM/50 ML (PMX) 50 ML IVPB (16:44)
[2017-03-22] MEDS: ROPINIROLE 0.25 MG TAB PO (22:40)
[2017-03-22] MEDS: QUETIAPINE 25 MG TAB PO (22:40)
[2017-03-23] MEDS: METHADONE (1 MG/ML 5 ML PO UD SYG) PO ×3 (06:17→22:11)
[2017-03-23] MEDS: ALPRAZOLAM 1 MG TAB PO ×3 (06:18→22:11)
[2017-03-23] MEDS: ACETAMINOPHEN 1000MG/100ML IV 100 ML IVPB ×4 (06:18→22:39)
[2017-03-23] MEDS: METHYLPREDNISOLONE 125 MG INJ IV ×2 (09:21→20:35)
[2017-03-23] MEDS: BUPROPION 75 MG TAB PO ×2 (09:21→20:40)
[2017-03-23] MEDS: FERROUS FUMARATE (SR) TAB PO (09:21)
[2017-03-23] MEDS: METOPROLOL 50 MG TAB PO ×2 (09:38→20:40)
[2017-03-23] MEDS: NIFEdipine (XL) 90 MG TAB PO (09:39)
[2017-03-23] MEDS: NS + KCL 20 MEQ 1,000 ML IV (12:00)
[2017-03-23] MEDS: HYDROmorphONE 0.2 MG/ML PCA IV (12:41)
[2017-03-23] MEDS: CEFTRIAXONE 1 GM/50 ML (PMX) 50 ML IVPB (16:02)
[2017-03-23] MEDS: ROPINIROLE 0.25 MG TAB PO (20:41)
[2017-03-23] MEDS: QUETIAPINE 25 MG TAB PO (20:42)
[2017-03-24] MEDS: HYDROmorphONE 0.2 MG/ML PCA IV ×2 (01:07→16:32)
[2017-03-24 06:08] LABS: ADD MAN DIFF? NO
[2017-03-24] MEDS: METHADONE (1 MG/ML 5 ML PO UD SYG) PO ×3 (06:11→21:12)
[2017-03-24] MEDS: ALPRAZOLAM 1 MG TAB PO ×3 (06:11→21:14)
[2017-03-24] MEDS: ACETAMINOPHEN 1000MG/100ML IV 100 ML IVPB ×4 (06:13→23:03)
[2017-03-24 06:18] LABS: WHITE BLOOD COUNT 11.3 10^3/ul (4.8-10.8)
[2017-03-24 06:18] LABS: HEMATOCRIT 28.2 % (37.0-47.0); HEMOGLOBIN 9.6 g/dl (12.0-16.0); LYMPHOCYTES # 0.7 10^3/ul (0.8-2.9); LYMPHOCYTES % 5.9 % (15.0-51.0); MEAN CORPUSCULAR HEMOGLOBIN 29.6 pg (29.0-33.0); MEAN PLATELET VOLUME 9.3 fl (7.4-10.4); MONOCYTE # 0.3 10^3/ul (0.3-0.9); MONOCYTES % 2.6 % (0.0-11.0); NEUTROPHIL # 10.1 10^3/ul (1.6-7.5); NEUTROPHILS % 89.5 % (39.0-77.0); PLATELET COUNT 396 10^3/UL (140-415); RED BLOOD COUNT 3.24 10^6/ul (4.20-5.40); RED CELL DISTRIBUTION WIDTH 19.2 % (11.5-14.5)
[2017-03-24 06:36] LABS: INR 0.95; PROTIME 12.8 Sec (11.9-14.9)
[2017-03-24 06:37] LABS: PARTIAL THROMBOPLASTIN TIME 28.2 Sec (25.0-35.0)
[2017-03-24] MEDS: hydrALAzine 20 MG INJ IV (06:39)
[2017-03-24 06:50] LABS: ALANINE AMINOTRANSFERASE 80 IU/L (13-69); ALBUMIN 3.1 g/dl (3.3-4.9); ALBUMIN/GLOBULIN RATIO 1.14; ALKALINE PHOSPHATASE 166 IU/L (42-121); ANION GAP 11 (8-16); ASPARTATE AMINO TRANSFERASE 73 IU/L (15-46); BLOOD UREA NITROGEN 10 mg/dl (7-20); CALCIUM 6.7 mg/dl (8.4-10.2); CARBON DIOXIDE 26 mmol/L (21-31); CHLORIDE 107 mmol/L (97-110); CREATININE 0.54 mg/dl (0.44-1.00); GLUCOSE 119 mg/dl (70-220); POTASSIUM 4.1 mmol/L (3.5-5.1); SODIUM 140 mmol/L (135-144); TOTAL PROTEIN 5.8 g/dl (6.1-8.1)
[2017-03-24] MEDS: METOPROLOL 50 MG TAB PO ×2 (08:45→21:00)
[2017-03-24] MEDS: BUPROPION 75 MG TAB PO ×2 (08:45→21:13)
[2017-03-24] MEDS: NIFEdipine (XL) 90 MG TAB PO (08:45)
[2017-03-24] MEDS: FERROUS FUMARATE (SR) TAB PO (08:45)
[2017-03-24] MEDS: METHYLPREDNISOLONE 125 MG INJ IV ×2 (08:45→21:15)
[2017-03-24] MEDS: HYDROCORTISONE 2.5% 28.35 GM OINT TOP ×2 (12:14→21:17)
[2017-03-24] MEDS: ROPINIROLE 0.25 MG TAB PO (21:13)
[2017-03-24] MEDS: QUETIAPINE 25 MG TAB PO (21:14)
[2017-03-25] MEDS: hydrALAzine 20 MG INJ IV ×2 (02:35→17:36)
[2017-03-25] MEDS: ACETAMINOPHEN 1000MG/100ML IV 100 ML IVPB ×3 (05:21→17:48)
[2017-03-25] MEDS: METHADONE (1 MG/ML 5 ML PO UD SYG) PO ×3 (06:00→22:00)
[2017-03-25] MEDS: ALPRAZOLAM 1 MG TAB PO ×2 (06:00→14:00)
[2017-03-25] MEDS ORDERED: METOPROLOL 5 MG INJ (07:00)
[2017-03-25] MEDS ORDERED: MIDAZOLAM 1 MG/ML 2 ML INJ (07:53)
[2017-03-25] MEDS ORDERED: PHENYLephrine (100 MCG/ML) 5ML SYG (08:06)
[2017-03-25] MEDS ORDERED: DEXAMETHASONE 4 MG/ML 1 ML INJ (08:52)
[2017-03-25] MEDS: METOPROLOL 50 MG TAB PO ×2 (09:00→22:03)
[2017-03-25] MEDS: FERROUS FUMARATE (SR) TAB PO (09:00)
[2017-03-25] MEDS: BUPROPION 75 MG TAB PO ×2 (09:00→22:02)
[2017-03-25] MEDS: NIFEdipine (XL) 90 MG TAB PO (09:00)
[2017-03-25] MEDS: METHYLPREDNISOLONE 125 MG INJ IV (09:00)
[2017-03-25] MEDS: HYDROCORTISONE 2.5% 28.35 GM OINT TOP ×2 (09:00→21:00)
[2017-03-25] MEDS: BUPIVACAINE 0.5% (SDV) 30 ML INJ (09:09)
[2017-03-25] MEDS: LIDOCAINE 1%/EPI 30 ML INJ (09:09)
[2017-03-25] MEDS ORDERED: hydrALAzine 20 MG INJ ×2 (09:19→09:45)
[2017-03-25] MEDS: POLYMYXIN/BACITRACIN 1L IRRIG (10:09)
[2017-03-25] MEDS: GELATIN SIZE 100 SPONGE (11:00)
[2017-03-25] MEDS: THROMBIN 5000 UNIT VIAL (11:01)
[2017-03-25] MEDS ORDERED: ETOMIDATE 20 MG INJ (16:18)
[2017-03-25] MEDS ORDERED: LIDOCAINE 100 MG SYRINGE (16:18)
[2017-03-25] MEDS ORDERED: ONDANSETRON 4 MG INJ (16:18)
[2017-03-25] MEDS ORDERED: METOCLOPRAMIDE 10 MG INJ (16:18)
[2017-03-25] MEDS ORDERED: ROCURONIUM 50 MG INJ (16:18)
[2017-03-25] MEDS ORDERED: CEFAZOLIN 1 GM INJ (16:18)
[2017-03-25] MEDS ORDERED: FENTAnyl 50 MCG/ML VIAL (16:41)
[2017-03-25] MEDS ORDERED: LABETALOL HCL 20MG INJ IV (17:30)
[2017-03-25] MEDS ORDERED: HYDROmorphONE (0.2 MG/ML) 10ML SYG IV ×2 (17:30)
[2017-03-25] MEDS ORDERED: MEPERIDINE 25 MG INJ IV (17:30)
[2017-03-25] MEDS ORDERED: ONDANSETRON 4 MG INJ IV ×2 (17:30→18:00)
[2017-03-25] MEDS ORDERED: hydrALAzine 20 MG INJ IV (17:30)
[2017-03-25] MEDS ORDERED: METOCLOPRAMIDE 10 MG INJ IV (17:30)
[2017-03-25] MEDS ORDERED: DIPHENHYDRAMINE 50 MG INJ IV (17:30)
[2017-03-25] MEDS ORDERED: NALOXONE (0.4 MG/ML) INJ IV (18:00)
[2017-03-25] MEDS: HYDROmorphONE 0.2 MG/ML PCA IV (18:07)
[2017-03-25] MEDS: CEFAZOLIN 1 GM/50 ML (PMX) 50 ML IVPB (18:11)
[2017-03-25 18:40] LABS: ADD MAN DIFF? NO
[2017-03-25 18:41] LABS: WHITE BLOOD COUNT 19.1 10^3/ul (4.8-10.8)
[2017-03-25 18:41] LABS: BASOPHILS % 0.1 % (0.0-2.0); HEMATOCRIT 24.2 % (37.0-47.0); HEMOGLOBIN 8.3 g/dl (12.0-16.0); LYMPHOCYTES # 0.8 10^3/ul (0.8-2.9); MEAN CORPUSCULAR HEMOGLOBIN 30.2 pg (29.0-33.0); MEAN CORPUSCULAR HGB CONC 34.3 g/dl (32.0-37.0); MEAN PLATELET VOLUME 9.5 fl (7.4-10.4); MONOCYTE # 0.6 10^3/ul (0.3-0.9); MONOCYTES % 3.3 % (0.0-11.0); NEUTROPHIL # 17.2 10^3/ul (1.6-7.5); NEUTROPHILS % 89.9 % (39.0-77.0); PLATELET COUNT 332 10^3/UL (140-415); RED BLOOD COUNT 2.75 10^6/ul (4.20-5.40); RED CELL DISTRIBUTION WIDTH 20.1 % (11.5-14.5)
[2017-03-25] MEDS: 1/2 NS + KCL 20 MEQ 1,000 ML IV (18:56)
[2017-03-25 19:01] LABS: ANION GAP 13 (8-16); BLOOD UREA NITROGEN 11 mg/dl (7-20); CARBON DIOXIDE 18 mmol/L (21-31); CHLORIDE 115 mmol/L (97-110); CREATININE 0.49 mg/dl (0.44-1.00); GLUCOSE 194 mg/dl (70-220); POTASSIUM 3.5 mmol/L (3.5-5.1); SODIUM 142 mmol/L (135-144)
[2017-03-25 19:05] LABS: CALCIUM 5.6 mg/dl (8.4-10.2)
[2017-03-25] MEDS: LORAZEPAM 2 MG INJ IV (20:18)
[2017-03-25] MEDS ORDERED: RAMELTEON 8 MG PO (21:00)
[2017-03-25] MEDS ORDERED: MIRTAZAPINE 45 MG PO (21:00)
[2017-03-25] MEDS: CALCIUM GLUCONATE 10% 2 GM in DEXTROSE 5% 100 ML IVPB (21:49)
[2017-03-25] MEDS: HYDROCODONE/APAP (10/325) TAB PO (21:59)
[2017-03-25] MEDS: morphine (ER) 30 MG TAB PO (22:00)
[2017-03-25] MEDS: MIRTAZAPINE 15 MG TAB PO (22:02)
[2017-03-25] MEDS: ROPINIROLE 0.25 MG TAB PO (22:02)
[2017-03-25] MEDS: AMITRIPTYLINE 25 MG TAB PO (22:02)
[2017-03-25] MEDS: DOCUSATE SODIUM 100 MG CAP PO (22:03)
[2017-03-26] MEDS: QUETIAPINE 25 MG TAB PO ×2 (00:39→20:40)
[2017-03-26] MEDS: HYDROmorphONE 0.2 MG/ML PCA IV ×2 (02:35→15:08)
[2017-03-26] MEDS: CEFAZOLIN 1 GM/50 ML (PMX) 50 ML IVPB ×2 (04:16→10:50)
[2017-03-26] MEDS: HYDROCODONE/APAP (10/325) TAB PO ×4 (04:17→20:39)
[2017-03-26] MEDS: 1/2 NS + KCL 20 MEQ 1,000 ML IV ×2 (04:17→14:00)
[2017-03-26] MEDS: METHADONE (1 MG/ML 5 ML PO UD SYG) PO ×3 (04:17→21:15)
[2017-03-26 05:30] LABS: ADD MAN DIFF? NO
[2017-03-26 05:33] LABS: WHITE BLOOD COUNT 15.4 10^3/ul (4.8-10.8)
[2017-03-26 05:33] LABS: BASOPHILS % 0.1 % (0.0-2.0); HEMATOCRIT 20.2 % (37.0-47.0); HEMOGLOBIN 7.1 g/dl (12.0-16.0); LYMPHOCYTES # 0.9 10^3/ul (0.8-2.9); LYMPHOCYTES % 5.9 % (15.0-51.0); MEAN CORPUSCULAR HEMOGLOBIN 30.3 pg (29.0-33.0); MEAN CORPUSCULAR HGB CONC 35.1 g/dl (32.0-37.0); MEAN CORPUSCULAR VOLUME 86.3 fl (82.0-101.0); MEAN PLATELET VOLUME 10.1 fl (7.4-10.4); MONOCYTE # 0.6 10^3/ul (0.3-0.9); MONOCYTES % 3.7 % (0.0-11.0); NEUTROPHIL # 13.5 10^3/ul (1.6-7.5); NEUTROPHILS % 87.4 % (39.0-77.0); NUCLEATED RED BLOOD CELLS% 0.3 /100WBC (0.0-0.0); PLATELET COUNT 305 10^3/UL (140-415); RED BLOOD COUNT 2.34 10^6/ul (4.20-5.40); RED CELL DISTRIBUTION WIDTH 21.1 % (11.5-14.5)
[2017-03-26] MEDS: PANTOPRAZOLE 40 MG INJ IV (06:09)
[2017-03-26 06:47] LABS: ANION GAP 14 (8-16); BLOOD UREA NITROGEN 14 mg/dl (7-20); CARBON DIOXIDE 18 mmol/L (21-31); CHLORIDE 113 mmol/L (97-110); CREATININE 0.74 mg/dl (0.44-1.00); GLUCOSE 99 mg/dl (70-220); POTASSIUM 4.6 mmol/L (3.5-5.1); SODIUM 140 mmol/L (135-144)
[2017-03-26 07:05] LABS: CALCIUM 5.8 mg/dl (8.4-10.2)
[2017-03-26 08:12] LABS: IMMEDIATE SPIN CROSSMATCH 1 4
[2017-03-26] MEDS: DIPHENHYDRAMINE 50 MG INJ IV (08:12)
[2017-03-26] MEDS: ACETAMINOPHEN 325 MG TAB PO (08:12)
[2017-03-26] MEDS: DOCUSATE SODIUM 100 MG CAP PO ×2 (08:27→20:42)
[2017-03-26] MEDS: FERROUS FUMARATE (SR) TAB PO (08:27)
[2017-03-26] MEDS: NIFEdipine (XL) 90 MG TAB PO (08:28)
[2017-03-26] MEDS: METOPROLOL 50 MG TAB PO ×2 (08:28→20:40)
[2017-03-26] MEDS: TRIAMTERENE/HCTZ (37.5-25) CAP PO (08:28)
[2017-03-26] MEDS: CALCIUM GLUCONATE 10% 2 GM in DEXTROSE 5% 100 ML IVPB (08:32)
[2017-03-26] MEDS: BUPROPION 75 MG TAB PO ×2 (08:32→20:41)
[2017-03-26] MEDS: morphine (ER) 30 MG TAB PO ×2 (08:49→20:40)
[2017-03-26] MEDS ORDERED: [UNRECOGNIZED DRUG - OTHER] PO (09:00)
[2017-03-26] MEDS: HYDROCORTISONE 2.5% 28.35 GM OINT TOP ×2 (09:17→20:42)
[2017-03-26] MEDS: AMITRIPTYLINE 25 MG TAB PO (20:41)
[2017-03-26] MEDS: ROPINIROLE 0.25 MG TAB PO (20:41)
[2017-03-26] MEDS: MIRTAZAPINE 15 MG TAB PO (20:41)
[2017-03-27] MEDS: HYDROCODONE/APAP (10/325) TAB PO ×4 (01:47→20:37)
[2017-03-27] MEDS: 1/2 NS + KCL 20 MEQ 1,000 ML IV ×3 (01:47→19:28)
[2017-03-27 04:56] LABS: ADD MAN DIFF? NO
[2017-03-27 05:42] LABS: ALANINE AMINOTRANSFERASE 63 IU/L (13-69); ALBUMIN 2.4 g/dl (3.3-4.9); ALBUMIN/GLOBULIN RATIO 1.09; ALKALINE PHOSPHATASE 103 IU/L (42-121); ANION GAP 11 (8-16); ASPARTATE AMINO TRANSFERASE 120 IU/L (15-46); BILIRUBIN,INDIRECT 0.1 mg/dl (0-1.1); BILIRUBIN,TOTAL 0.1 mg/dl (0.2-1.3); BLOOD UREA NITROGEN 15 mg/dl (7-20); CARBON DIOXIDE 19 mmol/L (21-31); CHLORIDE 114 mmol/L (97-110); CREATININE 0.68 mg/dl (0.44-1.00); GLUCOSE 114 mg/dl (70-220); MAGNESIUM 1.4 mg/dl (1.7-2.5); PHOSPHORUS 2.7 mg/dl (2.5-4.9); POTASSIUM 4.3 mmol/L (3.5-5.1); SODIUM 140 mmol/L (135-144); TOTAL PROTEIN 4.6 g/dl (6.1-8.1)
[2017-03-27] MEDS: PANTOPRAZOLE 40 MG INJ IV (05:43)
[2017-03-27] MEDS: METHADONE (1 MG/ML 5 ML PO UD SYG) PO ×3 (05:43→22:12)
[2017-03-27 05:46] LABS: BASOPHILS % 0.1 % (0.0-2.0); HEMATOCRIT 31.3 % (37.0-47.0); LYMPHOCYTES # 0.8 10^3/ul (0.8-2.9); LYMPHOCYTES % 4.5 % (15.0-51.0); MEAN CORPUSCULAR HEMOGLOBIN 30.1 pg (29.0-33.0); MEAN CORPUSCULAR HGB CONC 35.1 g/dl (32.0-37.0); MEAN CORPUSCULAR VOLUME 85.8 fl (82.0-101.0); MEAN PLATELET VOLUME 9.8 fl (7.4-10.4); MONOCYTE # 0.4 10^3/ul (0.3-0.9); MONOCYTES % 2.5 % (0.0-11.0); NEUTROPHIL # 14.9 10^3/ul (1.6-7.5); NEUTROPHILS % 90.3 % (39.0-77.0); NUCLEATED RED BLOOD CELLS% 0.2 /100WBC (0.0-0.0); PLATELET COUNT 193 10^3/UL (140-415); RED BLOOD COUNT 3.65 10^6/ul (4.20-5.40); RED CELL DISTRIBUTION WIDTH 19.7 % (11.5-14.5)
[2017-03-27 05:46] LABS: WHITE BLOOD COUNT 16.5 10^3/ul (4.8-10.8)
[2017-03-27] MEDS: HYDROmorphONE 0.2 MG/ML PCA IV ×2 (05:57→15:52)
[2017-03-27] MEDS: CYCLOBENZAPRINE 10 MG TAB PO (06:13)
[2017-03-27] MEDS: morphine (ER) 30 MG TAB PO ×2 (08:45→20:38)
[2017-03-27] MEDS: FERROUS FUMARATE (SR) TAB PO (08:45)
[2017-03-27] MEDS: BUPROPION 75 MG TAB PO ×2 (08:45→20:39)
[2017-03-27] MEDS: NIFEdipine (XL) 90 MG TAB PO (08:46)
[2017-03-27] MEDS: DOCUSATE SODIUM 100 MG CAP PO ×2 (08:46→20:37)
[2017-03-27] MEDS: TRIAMTERENE/HCTZ (37.5-25) CAP PO (08:46)
[2017-03-27] MEDS: METOPROLOL 50 MG TAB PO ×2 (08:47→20:40)
[2017-03-27] MEDS: HYDROCORTISONE 2.5% 28.35 GM OINT TOP ×2 (08:47→20:40)
[2017-03-27] MEDS: BISACODYL 10 MG SUPP PR (12:33)
[2017-03-27] MEDS: QUETIAPINE 25 MG TAB PO (20:37)
[2017-03-27] MEDS: AMITRIPTYLINE 25 MG TAB PO (20:38)
[2017-03-27] MEDS: ROPINIROLE 0.25 MG TAB PO (20:39)
[2017-03-27] MEDS: MIRTAZAPINE 15 MG TAB PO (20:39)
[2017-03-27] MEDS: ALPRAZOLAM 0.5 MG TAB PO (20:45)
[2017-03-28] MEDS: HYDROCODONE/APAP (10/325) TAB PO ×2 (03:41→08:41)
[2017-03-28] MEDS: 1/2 NS + KCL 20 MEQ 1,000 ML IV ×2 (05:11→16:00)
[2017-03-28] MEDS: PANTOPRAZOLE 40 MG INJ IV (05:11)
[2017-03-28] MEDS: METHADONE (1 MG/ML 5 ML PO UD SYG) PO ×3 (05:11→21:57)
[2017-03-28] MEDS: ALPRAZOLAM 0.5 MG TAB PO ×2 (05:54→20:28)
[2017-03-28] MEDS: DIPHENHYDRAMINE 25 MG CAP PO ×2 (06:04→20:27)
[2017-03-28] MEDS: HYDROmorphONE 0.2 MG/ML PCA IV (06:06)
[2017-03-28] MEDS: FERROUS FUMARATE (SR) TAB PO (08:41)
[2017-03-28] MEDS: DOCUSATE SODIUM 100 MG CAP PO ×2 (08:41→20:25)
[2017-03-28] MEDS: BUPROPION 75 MG TAB PO ×2 (08:41→21:56)
[2017-03-28] MEDS: METOPROLOL 50 MG TAB PO ×2 (08:41→20:26)
[2017-03-28] MEDS: NIFEdipine (XL) 90 MG TAB PO (08:41)
[2017-03-28] MEDS: TRIAMTERENE/HCTZ (37.5-25) CAP PO (08:42)
[2017-03-28] MEDS: morphine (ER) 30 MG TAB PO (08:42)
[2017-03-28] MEDS: HYDROCORTISONE 2.5% 28.35 GM OINT TOP ×2 (09:19→21:00)
[2017-03-28] MEDS: HYDROmorphONE 0.5 MG/0.5 ML SYG IV (18:28)
[2017-03-28] MEDS: MIRTAZAPINE 15 MG TAB PO (20:27)
[2017-03-28] MEDS: QUETIAPINE 25 MG TAB PO (21:56)
[2017-03-28] MEDS: ROPINIROLE 0.25 MG TAB PO (21:56)
[2017-03-28] MEDS: AMITRIPTYLINE 25 MG TAB PO (21:56)
[2017-03-29] MEDS: HYDROmorphONE 0.5 MG/0.5 ML SYG IV ×4 (03:35→20:40)
[2017-03-29] MEDS: PANTOPRAZOLE 40 MG INJ IV (05:50)
[2017-03-29] MEDS: METHADONE (1 MG/ML 5 ML PO UD SYG) PO ×3 (05:51→23:01)
[2017-03-29 05:52] LABS: ADD MAN DIFF? NO
[2017-03-29 06:08] LABS: WHITE BLOOD COUNT 8.3 10^3/ul (4.8-10.8)
[2017-03-29 06:08] LABS: ABNORMAL IP MESSAGE 1; BASOPHILS % 0.1 % (0.0-2.0); EOSINOPHILS % 0.1 % (0.0-7.0); HEMATOCRIT 25.5 % (37.0-47.0); HEMOGLOBIN 9.1 g/dl (12.0-16.0); LYMPHOCYTES # 0.5 10^3/ul (0.8-2.9); MEAN CORPUSCULAR HEMOGLOBIN 30.4 pg (29.0-33.0); MEAN CORPUSCULAR HGB CONC 35.7 g/dl (32.0-37.0); MEAN CORPUSCULAR VOLUME 85.3 fl (82.0-101.0); MEAN PLATELET VOLUME 10.3 fl (7.4-10.4); MONOCYTE # 0.4 10^3/ul (0.3-0.9); MONOCYTES % 4.4 % (0.0-11.0); NEUTROPHIL # 7.3 10^3/ul (1.6-7.5); NEUTROPHILS % 87.9 % (39.0-77.0); NUCLEATED RED BLOOD CELLS% 0.5 /100WBC (0.0-0.0); PLATELET COUNT 175 10^3/UL (140-415); RED BLOOD COUNT 2.99 10^6/ul (4.20-5.40); RED CELL DISTRIBUTION WIDTH 20.6 % (11.5-14.5)
[2017-03-29 06:19] LABS: POSITIVE DIFF @See below
[2017-03-29 06:56] LABS: ALANINE AMINOTRANSFERASE 47 IU/L (13-69); ALBUMIN 2.3 g/dl (3.3-4.9); ALBUMIN/GLOBULIN RATIO 0.88; ALKALINE PHOSPHATASE 143 IU/L (42-121); ANION GAP 9 (8-16); ASPARTATE AMINO TRANSFERASE 46 IU/L (15-46); BILIRUBIN,INDIRECT 0.1 mg/dl (0-1.1); BILIRUBIN,TOTAL 0.1 mg/dl (0.2-1.3); BLOOD UREA NITROGEN 12 mg/dl (7-20); CALCIUM 6.2 mg/dl (8.4-10.2); CARBON DIOXIDE 22 mmol/L (21-31); CHLORIDE 112 mmol/L (97-110); CREATININE 0.73 mg/dl (0.44-1.00); GLUCOSE 103 mg/dl (70-220); POTASSIUM 3.6 mmol/L (3.5-5.1); SODIUM 139 mmol/L (135-144); TOTAL PROTEIN 4.9 g/dl (6.1-8.1)
[2017-03-29] MEDS: DOCUSATE SODIUM 100 MG CAP PO ×2 (08:13→21:33)
[2017-03-29] MEDS: NIFEdipine (XL) 90 MG TAB PO (08:13)
[2017-03-29] MEDS: FERROUS FUMARATE (SR) TAB PO (08:13)
[2017-03-29] MEDS: METOPROLOL 50 MG TAB PO ×2 (08:14→21:32)
[2017-03-29] MEDS: TRIAMTERENE/HCTZ (37.5-25) CAP PO (08:15)
[2017-03-29] MEDS: BUPROPION 75 MG TAB PO (08:15)
[2017-03-29] MEDS: ALPRAZOLAM 0.5 MG TAB PO (08:17)
[2017-03-29] MEDS: HYDROCORTISONE 2.5% 28.35 GM OINT TOP ×2 (09:00→23:04)
[2017-03-29] MEDS: CYCLOBENZAPRINE 10 MG TAB PO (10:34)
[2017-03-29] MEDS: MIRTAZAPINE 15 MG TAB PO (18:45)
[2017-03-29] MEDS: HYDROmorphONE 0.2 MG/ML PCA IV (21:26)
[2017-03-29] MEDS: ROPINIROLE 0.25 MG TAB PO (21:32)
[2017-03-29] MEDS: QUETIAPINE 25 MG TAB PO (21:35)
[2017-03-29] MEDS: AMITRIPTYLINE 50 MG TAB PO (23:01)
[2017-03-30 04:50] LABS: ADD MAN DIFF? NO
[2017-03-30 04:58] LABS: WHITE BLOOD COUNT 8.3 10^3/ul (4.8-10.8)
[2017-03-30 04:58] LABS: BASOPHILS % 0.4 % (0.0-2.0); EOSINOPHILS # 0.1 10^3/ul (0.0-0.5); EOSINOPHILS % 0.6 % (0.0-7.0); HEMATOCRIT 29.7 % (37.0-47.0); HEMOGLOBIN 10.3 g/dl (12.0-16.0); LYMPHOCYTES # 0.7 10^3/ul (0.8-2.9); LYMPHOCYTES % 8.9 % (15.0-51.0); MEAN CORPUSCULAR HEMOGLOBIN 29.9 pg (29.0-33.0); MEAN CORPUSCULAR HGB CONC 34.7 g/dl (32.0-37.0); MEAN CORPUSCULAR VOLUME 86.3 fl (82.0-101.0); MEAN PLATELET VOLUME 10.2 fl (7.4-10.4); MONOCYTE # 0.4 10^3/ul (0.3-0.9); MONOCYTES % 4.7 % (0.0-11.0); NEUTROPHILS % 83.7 % (39.0-77.0); NUCLEATED RED BLOOD CELLS% 0.2 /100WBC (0.0-0.0); PLATELET COUNT 190 10^3/UL (140-415); RED BLOOD COUNT 3.44 10^6/ul (4.20-5.40); RED CELL DISTRIBUTION WIDTH 21.5 % (11.5-14.5)
[2017-03-30] MEDS: PANTOPRAZOLE 40 MG INJ IV (05:17)
[2017-03-30] MEDS: METHADONE (1 MG/ML 5 ML PO UD SYG) PO ×3 (05:17→22:06)
[2017-03-30 05:20] LABS: PREALBUMIN 24.4 mg/dl (17.6-36.0)
[2017-03-30] MEDS: HYDROmorphONE 0.2 MG/ML PCA IV ×2 (06:30→17:48)
[2017-03-30] MEDS: FERROUS FUMARATE (SR) TAB PO (09:24)
[2017-03-30] MEDS: DOCUSATE SODIUM 100 MG CAP PO ×2 (09:24→20:43)
[2017-03-30] MEDS: TRIAMTERENE/HCTZ (37.5-25) CAP PO (09:25)
[2017-03-30] MEDS: METOPROLOL 50 MG TAB PO ×2 (09:25→20:43)
[2017-03-30] MEDS: NIFEdipine (XL) 90 MG TAB PO (09:26)
[2017-03-30] MEDS: BUPROPION 75 MG TAB PO (09:26)
[2017-03-30] MEDS: HYDROCORTISONE 2.5% 28.35 GM OINT TOP ×2 (09:27→20:45)
[2017-03-30] MEDS: ALPRAZOLAM 0.5 MG TAB PO (09:32)
[2017-03-30] MEDS: QUETIAPINE 25 MG TAB PO (20:42)
[2017-03-30] MEDS: ROPINIROLE 0.25 MG TAB PO (20:43)
[2017-03-30] MEDS: MIRTAZAPINE 15 MG TAB PO (20:43)
[2017-03-30] MEDS: ACETAMINOPHEN 500 MG TAB PO (22:06)
[2017-03-30] MEDS: AMITRIPTYLINE 50 MG TAB PO (22:07)
[2017-03-31] MEDS: PANTOPRAZOLE 40 MG INJ IV (05:22)
[2017-03-31] MEDS: METHADONE (1 MG/ML 5 ML PO UD SYG) PO ×3 (05:22→15:39)
[2017-03-31] MEDS: TRIAMTERENE/HCTZ (37.5-25) CAP PO (08:38)
[2017-03-31] MEDS: DOCUSATE SODIUM 100 MG CAP PO ×2 (08:38→21:26)
[2017-03-31] MEDS: FERROUS FUMARATE (SR) TAB PO (08:38)
[2017-03-31] MEDS: METOPROLOL 50 MG TAB PO ×2 (08:39→21:28)
[2017-03-31] MEDS: BUPROPION 75 MG TAB PO (08:39)
[2017-03-31] MEDS: NIFEdipine (XL) 90 MG TAB PO (08:39)
[2017-03-31] MEDS: HYDROCORTISONE 2.5% 28.35 GM OINT TOP ×2 (08:40→21:29)
[2017-03-31] MEDS: ALPRAZOLAM 0.5 MG TAB PO (08:40)
[2017-03-31] MEDS ORDERED: ALLOPURINOL 300 MG TAB PO (10:00)
[2017-03-31] MEDS ORDERED: LIDOCAINE 1% (MPF) 5 ML VIAL SC (10:30)
[2017-03-31] MEDS: ALLOPURINOL 100 MG TAB PO (11:50)
[2017-03-31] MEDS: HYDROmorphONE 0.2 MG/ML PCA IV (11:52)
[2017-03-31] MEDS: MIRTAZAPINE 15 MG TAB PO (21:27)
[2017-03-31] MEDS: AMITRIPTYLINE 50 MG TAB PO (21:27)
[2017-03-31] MEDS: ROPINIROLE 0.25 MG TAB PO (21:27)
[2017-03-31] MEDS: QUETIAPINE 25 MG TAB PO (21:27)
[2017-03-31] MEDS: BISACODYL 10 MG SUPP PR (22:28)
[2017-04-01] MEDS: HYDROmorphONE 0.2 MG/ML PCA IV ×2 (00:07→16:49)
[2017-04-01] MEDS: PANTOPRAZOLE 40 MG INJ IV (05:15)
[2017-04-01] MEDS: METHADONE (1 MG/ML 5 ML PO UD SYG) PO ×4 (05:15→22:21)
[2017-04-01 05:38] LABS: ADD MAN DIFF? NO
[2017-04-01 05:44] LABS: WHITE BLOOD COUNT 8.7 10^3/ul (4.8-10.8)
[2017-04-01 05:44] LABS: ABNORMAL IP MESSAGE 1; BASOPHILS % 0.1 % (0.0-2.0); EOSINOPHILS # 0.1 10^3/ul (0.0-0.5); EOSINOPHILS % 0.7 % (0.0-7.0); HEMATOCRIT 24.4 % (37.0-47.0); HEMOGLOBIN 8.5 g/dl (12.0-16.0); LYMPHOCYTES # 0.4 10^3/ul (0.8-2.9); LYMPHOCYTES % 4.7 % (15.0-51.0); MEAN CORPUSCULAR HEMOGLOBIN 30.5 pg (29.0-33.0); MEAN CORPUSCULAR HGB CONC 34.8 g/dl (32.0-37.0); MEAN CORPUSCULAR VOLUME 87.5 fl (82.0-101.0); MEAN PLATELET VOLUME 10.2 fl (7.4-10.4); MONOCYTE # 0.3 10^3/ul (0.3-0.9); MONOCYTES % 3.2 % (0.0-11.0); NEUTROPHIL # 7.9 10^3/ul (1.6-7.5); NEUTROPHILS % 89.8 % (39.0-77.0); PLATELET COUNT 180 10^3/UL (140-415); RED BLOOD COUNT 2.79 10^6/ul (4.20-5.40); RED CELL DISTRIBUTION WIDTH 21.4 % (11.5-14.5)
[2017-04-01 05:53] LABS: POSITIVE DIFF @See below
[2017-04-01 06:09] LABS: ALANINE AMINOTRANSFERASE 45 IU/L (13-69); ALBUMIN 2.3 g/dl (3.3-4.9); ALBUMIN/GLOBULIN RATIO 0.95; ALKALINE PHOSPHATASE 183 IU/L (42-121); ANION GAP 12 (8-16); ASPARTATE AMINO TRANSFERASE 60 IU/L (15-46); BILIRUBIN,INDIRECT 0.1 mg/dl (0-1.1); BILIRUBIN,TOTAL 0.1 mg/dl (0.2-1.3); BLOOD UREA NITROGEN 9 mg/dl (7-20); CALCIUM 6.2 mg/dl (8.4-10.2); CARBON DIOXIDE 25 mmol/L (21-31); CHLORIDE 107 mmol/L (97-110); CREATININE 0.56 mg/dl (0.44-1.00); GLUCOSE 115 mg/dl (70-220); POTASSIUM 3.4 mmol/L (3.5-5.1); SODIUM 141 mmol/L (135-144); TOTAL PROTEIN 4.7 g/dl (6.1-8.1); URIC ACID 4.3 mg/dl (3.1-7.9)
[2017-04-01 06:19] LABS: LACTATE DEHYDROGENASE 2673 IU/L (313-618)
[2017-04-01] MEDS: BUPROPION 75 MG TAB PO (08:22)
[2017-04-01] MEDS: TRIAMTERENE/HCTZ (37.5-25) CAP PO (08:22)
[2017-04-01] MEDS: FERROUS FUMARATE (SR) TAB PO (08:22)
[2017-04-01] MEDS: DOCUSATE SODIUM 100 MG CAP PO ×2 (08:22→20:54)
[2017-04-01] MEDS: ALLOPURINOL 100 MG TAB PO (08:22)
[2017-04-01] MEDS: METOPROLOL 50 MG TAB PO ×2 (08:23→20:56)
[2017-04-01] MEDS: NIFEdipine (XL) 90 MG TAB PO (08:23)
[2017-04-01] MEDS: ALPRAZOLAM 0.5 MG TAB PO (08:25)
[2017-04-01] MEDS: HYDROCORTISONE 2.5% 28.35 GM OINT TOP ×2 (08:26→20:56)
[2017-04-01] MEDS: POTASSIUM CHLORIDE (SR) 20 MEQ TAB PO (11:54)
[2017-04-01] MEDS: QUETIAPINE 25 MG TAB PO (20:54)
[2017-04-01] MEDS: MIRTAZAPINE 15 MG TAB PO (20:54)
[2017-04-01] MEDS: AMITRIPTYLINE 50 MG TAB PO (20:54)
[2017-04-01] MEDS: ROPINIROLE 0.25 MG TAB PO (20:54)
[2017-04-01] MEDS: CYCLOBENZAPRINE 10 MG TAB PO (20:55)
[2017-04-02] MEDS: HYDROmorphONE 0.2 MG/ML PCA IV ×2 (04:43→17:15)
[2017-04-02 05:24] LABS: ADD MAN DIFF? NO
[2017-04-02 05:29] LABS: WHITE BLOOD COUNT 4.3 10^3/ul (4.8-10.8)
[2017-04-02 05:29] LABS: ABNORMAL IP MESSAGE 1; BASOPHILS % 0.2 % (0.0-2.0); EOSINOPHILS # 0.1 10^3/ul (0.0-0.5); EOSINOPHILS % 1.2 % (0.0-7.0); HEMATOCRIT 31.2 % (37.0-47.0); HEMOGLOBIN 10.8 g/dl (12.0-16.0); LYMPHOCYTES # 0.4 10^3/ul (0.8-2.9); LYMPHOCYTES % 8.9 % (15.0-51.0); MEAN CORPUSCULAR HEMOGLOBIN 30.7 pg (29.0-33.0); MEAN CORPUSCULAR HGB CONC 34.6 g/dl (32.0-37.0); MEAN CORPUSCULAR VOLUME 88.6 fl (82.0-101.0); MEAN PLATELET VOLUME 10.4 fl (7.4-10.4); MONOCYTE # 0.2 10^3/ul (0.3-0.9); MONOCYTES % 5.2 % (0.0-11.0); NEUTROPHIL # 3.6 10^3/ul (1.6-7.5); NEUTROPHILS % 83.8 % (39.0-77.0); PLATELET COUNT 184 10^3/UL (140-415); RED BLOOD COUNT 3.52 10^6/ul (4.20-5.40); RED CELL DISTRIBUTION WIDTH 22.6 % (11.5-14.5)
[2017-04-02 05:37] LABS: POSITIVE DIFF @See below
[2017-04-02] MEDS: PANTOPRAZOLE 40 MG INJ IV (06:15)
[2017-04-02] MEDS: METHADONE (1 MG/ML 5 ML PO UD SYG) PO ×3 (06:15→21:30)
[2017-04-02 06:16] LABS: ANION GAP 11 (8-16); BLOOD UREA NITROGEN 7 mg/dl (7-20); CALCIUM 6.5 mg/dl (8.4-10.2); CARBON DIOXIDE 26 mmol/L (21-31); CHLORIDE 110 mmol/L (97-110); CREATININE 0.52 mg/dl (0.44-1.00); GLUCOSE 95 mg/dl (70-220); POTASSIUM 4.2 mmol/L (3.5-5.1); SODIUM 143 mmol/L (135-144)
[2017-04-02] MEDS: DOCUSATE SODIUM 100 MG CAP PO ×2 (08:14→21:23)
[2017-04-02] MEDS: TRIAMTERENE/HCTZ (37.5-25) CAP PO (08:15)
[2017-04-02] MEDS: FERROUS FUMARATE (SR) TAB PO (08:15)
[2017-04-02] MEDS: BUPROPION 75 MG TAB PO (08:15)
[2017-04-02] MEDS: NIFEdipine (XL) 90 MG TAB PO (08:15)
[2017-04-02] MEDS: ALLOPURINOL 100 MG TAB PO (08:15)
[2017-04-02] MEDS: METOPROLOL 50 MG TAB PO ×2 (08:16→21:23)
[2017-04-02] MEDS: POLYETHYLENE GLYCOL 17 GM PACKET PO (08:16)
[2017-04-02] MEDS: HYDROCORTISONE 2.5% 28.35 GM OINT TOP ×2 (08:16→21:24)
[2017-04-02] MEDS: ALPRAZOLAM 0.5 MG TAB PO (09:54)
[2017-04-02] MEDS: LEVOFLOXACIN 500 MG TAB PO (17:14)
[2017-04-02] MEDS: MIRTAZAPINE 15 MG TAB PO (21:23)
[2017-04-02] MEDS: ROPINIROLE 0.25 MG TAB PO (21:23)
[2017-04-02] MEDS: QUETIAPINE 25 MG TAB PO (21:24)
[2017-04-02] MEDS: AMITRIPTYLINE 50 MG TAB PO (23:55)
[2017-04-03] MEDS: CALCIUM GLUCONATE 10% 2 GM in DEXTROSE 5% 100 ML IVPB (00:46)
[2017-04-03] MEDS: ALPRAZOLAM 0.5 MG TAB PO ×2 (01:57→09:26)
[2017-04-03 05:39] LABS: ADD MAN DIFF? NO
[2017-04-03 05:48] LABS: ABNORMAL IP MESSAGE 1; HEMATOCRIT 24.1 % (37.0-47.0); HEMOGLOBIN 8.2 g/dl (12.0-16.0); LYMPHOCYTES # 0.6 10^3/ul (0.8-2.9); LYMPHOCYTES % 14.3 % (15.0-51.0); MEAN CORPUSCULAR HEMOGLOBIN 30.4 pg (29.0-33.0); MEAN CORPUSCULAR VOLUME 89.3 fl (82.0-101.0); MEAN PLATELET VOLUME 10.2 fl (7.4-10.4); MONOCYTE # 0.3 10^3/ul (0.3-0.9); MONOCYTES % 6.8 % (0.0-11.0); NEUTROPHIL # 3.1 10^3/ul (1.6-7.5); NEUTROPHILS % 76.9 % (39.0-77.0); PLATELET COUNT 223 10^3/UL (140-415); RED CELL DISTRIBUTION WIDTH 21.9 % (11.5-14.5)
[2017-04-03] MEDS: LEVOFLOXACIN 250 MG TAB PO (05:50)
[2017-04-03] MEDS: PANTOPRAZOLE 40 MG INJ IV (05:50)
[2017-04-03] MEDS: METHADONE (1 MG/ML 5 ML PO UD SYG) PO ×3 (05:50→22:47)
[2017-04-03 06:31] LABS: POSITIVE DIFF @See below
[2017-04-03 06:48] LABS: ANION GAP 11 (8-16); BLOOD UREA NITROGEN 5 mg/dl (7-20); CALCIUM 7.3 mg/dl (8.4-10.2); CARBON DIOXIDE 26 mmol/L (21-31); CHLORIDE 107 mmol/L (97-110); CREATININE 0.49 mg/dl (0.44-1.00); GLUCOSE 82 mg/dl (70-220); POTASSIUM 4.3 mmol/L (3.5-5.1); SODIUM 140 mmol/L (135-144)
[2017-04-03] MEDS: HYDROmorphONE 0.2 MG/ML PCA IV ×2 (07:31→20:45)
[2017-04-03] MEDS: HYDROCORTISONE 2.5% 28.35 GM OINT TOP ×2 (09:00→21:00)
[2017-04-03] MEDS: ALLOPURINOL 100 MG TAB PO (09:24)
[2017-04-03] MEDS: FERROUS FUMARATE (SR) TAB PO (09:24)
[2017-04-03] MEDS: BUPROPION 75 MG TAB PO (09:25)
[2017-04-03] MEDS: TRIAMTERENE/HCTZ (37.5-25) CAP PO (09:25)
[2017-04-03] MEDS: DOCUSATE SODIUM 100 MG CAP PO ×2 (09:25→20:32)
[2017-04-03] MEDS: NIFEdipine (XL) 90 MG TAB PO (09:25)
[2017-04-03] MEDS: POLYETHYLENE GLYCOL 17 GM PACKET PO (09:26)
[2017-04-03] MEDS: METOPROLOL 50 MG TAB PO ×2 (09:26→20:33)
[2017-04-03] MEDS: AMITRIPTYLINE 50 MG TAB PO (20:32)
[2017-04-03] MEDS: ROPINIROLE 0.25 MG TAB PO (20:33)
[2017-04-03] MEDS: QUETIAPINE 25 MG TAB PO (20:34)
[2017-04-03] MEDS: MIRTAZAPINE 15 MG TAB PO (22:50)
[2017-04-04] MEDS: ALPRAZOLAM 0.5 MG TAB PO ×2 (01:54→09:29)
[2017-04-04 05:15] LABS: ADD MAN DIFF? NO
[2017-04-04 05:17] LABS: WHITE BLOOD COUNT 3.5 10^3/ul (4.8-10.8)
[2017-04-04 05:17] LABS: ABNORMAL IP MESSAGE 1; BASOPHILS % 0.3 % (0.0-2.0); EOSINOPHILS % 1.1 % (0.0-7.0); HEMATOCRIT 24.8 % (37.0-47.0); HEMOGLOBIN 8.2 g/dl (12.0-16.0); LYMPHOCYTES # 0.6 10^3/ul (0.8-2.9); LYMPHOCYTES % 15.9 % (15.0-51.0); MEAN CORPUSCULAR HEMOGLOBIN 30.3 pg (29.0-33.0); MEAN CORPUSCULAR HGB CONC 33.1 g/dl (32.0-37.0); MEAN CORPUSCULAR VOLUME 91.5 fl (82.0-101.0); MEAN PLATELET VOLUME 9.9 fl (7.4-10.4); MONOCYTE # 0.3 10^3/ul (0.3-0.9); MONOCYTES % 7.6 % (0.0-11.0); NEUTROPHIL # 2.6 10^3/ul (1.6-7.5); NEUTROPHILS % 73.1 % (39.0-77.0); PLATELET COUNT 218 10^3/UL (140-415); RED BLOOD COUNT 2.71 10^6/ul (4.20-5.40); RED CELL DISTRIBUTION WIDTH 21.7 % (11.5-14.5)
[2017-04-04 05:29] LABS: POSITIVE DIFF @See below
[2017-04-04] MEDS: PANTOPRAZOLE 40 MG INJ IV (05:42)
[2017-04-04] MEDS: LEVOFLOXACIN 250 MG TAB PO (05:42)
[2017-04-04] MEDS: METHADONE (1 MG/ML 5 ML PO UD SYG) PO ×3 (06:30→22:09)
[2017-04-04] MEDS: DOCUSATE SODIUM 100 MG CAP PO ×2 (09:17→20:24)
[2017-04-04] MEDS: FERROUS FUMARATE (SR) TAB PO (09:18)
[2017-04-04] MEDS: METOPROLOL 50 MG TAB PO ×2 (09:19→20:24)
[2017-04-04] MEDS: BUPROPION 75 MG TAB PO (09:20)
[2017-04-04] MEDS: NIFEdipine (XL) 90 MG TAB PO (09:20)
[2017-04-04] MEDS: ALLOPURINOL 100 MG TAB PO (09:20)
[2017-04-04] MEDS: POLYETHYLENE GLYCOL 17 GM PACKET PO (09:20)
[2017-04-04] MEDS: TRIAMTERENE/HCTZ (37.5-25) CAP PO (09:21)
[2017-04-04] MEDS: HYDROCORTISONE 2.5% 28.35 GM OINT TOP ×2 (09:22→20:25)
[2017-04-04] MEDS: HYDROmorphONE 0.2 MG/ML PCA IV (14:10)
[2017-04-04] MEDS: HYDROmorphONE 0.5 MG/0.5 ML SYG IV (15:15)
[2017-04-04] MEDS: CYCLOBENZAPRINE 10 MG TAB PO (17:42)
[2017-04-04] MEDS: AMITRIPTYLINE 50 MG TAB PO (20:23)
[2017-04-04] MEDS: MIRTAZAPINE 15 MG TAB PO (20:23)
[2017-04-04] MEDS: ROPINIROLE 0.25 MG TAB PO (20:24)
[2017-04-04] MEDS: QUETIAPINE 25 MG TAB PO (20:25)
[2017-04-05] MEDS: CYCLOBENZAPRINE 10 MG TAB PO ×2 (03:20→15:53)
[2017-04-05] MEDS: HYDROmorphONE 0.2 MG/ML PCA IV (04:14)
[2017-04-05] MEDS: METHADONE (1 MG/ML 5 ML PO UD SYG) PO ×3 (05:11→21:50)
[2017-04-05] MEDS: LEVOFLOXACIN 250 MG TAB PO (05:11)
[2017-04-05] MEDS: PANTOPRAZOLE 40 MG INJ IV (05:11)
[2017-04-05] MEDS: DOCUSATE SODIUM 100 MG CAP PO ×2 (08:51→20:44)
[2017-04-05] MEDS: METOPROLOL 50 MG TAB PO ×2 (08:52→20:44)
[2017-04-05] MEDS: FERROUS FUMARATE (SR) TAB PO (08:52)
[2017-04-05] MEDS: TRIAMTERENE/HCTZ (37.5-25) CAP PO (08:52)
[2017-04-05] MEDS: POLYETHYLENE GLYCOL 17 GM PACKET PO (08:53)
[2017-04-05] MEDS: NIFEdipine (XL) 90 MG TAB PO (08:53)
[2017-04-05] MEDS: BUPROPION 75 MG TAB PO (08:54)
[2017-04-05] MEDS: ALLOPURINOL 100 MG TAB PO (08:55)
[2017-04-05] MEDS: ALPRAZOLAM 0.5 MG TAB PO ×2 (08:55→21:16)
[2017-04-05] MEDS: HYDROCORTISONE 2.5% 28.35 GM OINT TOP ×2 (08:56→20:46)
[2017-04-05] MEDS ORDERED: DEXTROSE 5%-0.9% NACL 1,000 ML IV (15:00)
[2017-04-05] MEDS: POTASSIUM CHLORIDE 30 MEQ in DEXTROSE 5%-0.9% NACL 1,000 ML IV (15:53)
[2017-04-05] MEDS: ONDANSETRON INJ 16 MG, DEXAMETHASONE 4 MG/ML 20 MG in DEXTROSE 5% 50 ML IV (16:48)
[2017-04-05] MEDS: HYDROmorphONE 2 MG/ML SYG IV (16:51)
[2017-04-05] MEDS: DEXTROSE 5% IV ×2 (17:32→21:26)
[2017-04-05] MEDS: CARBOPLATIN IV (17:32)
[2017-04-05] MEDS: ROPINIROLE 0.25 MG TAB PO (20:44)
[2017-04-05] MEDS: AMITRIPTYLINE 50 MG TAB PO (20:45)
[2017-04-05] MEDS: MIRTAZAPINE 15 MG TAB PO (20:45)
[2017-04-05] MEDS: QUETIAPINE 25 MG TAB PO (20:46)
[2017-04-05] MEDS: ETOPOSIDE IV (21:26)
[2017-04-06] MEDS: HYDROmorphONE 2 MG/ML SYG IV ×2 (02:50→08:56)
[2017-04-06 05:48] LABS: ADD MAN DIFF? NO
[2017-04-06 05:53] LABS: WHITE BLOOD COUNT 5.8 10^3/ul (4.8-10.8)
[2017-04-06 05:53] LABS: ABNORMAL IP MESSAGE 1; BASOPHILS % 0.2 % (0.0-2.0); HEMOGLOBIN 8.8 g/dl (12.0-16.0); LYMPHOCYTES # 0.3 10^3/ul (0.8-2.9); LYMPHOCYTES % 4.7 % (15.0-51.0); MEAN CORPUSCULAR HEMOGLOBIN 30.7 pg (29.0-33.0); MEAN CORPUSCULAR HGB CONC 33.8 g/dl (32.0-37.0); MEAN CORPUSCULAR VOLUME 90.6 fl (82.0-101.0); MEAN PLATELET VOLUME 10.2 fl (7.4-10.4); MONOCYTE # 0.4 10^3/ul (0.3-0.9); MONOCYTES % 6.2 % (0.0-11.0); PLATELET COUNT 269 10^3/UL (140-415); RED BLOOD COUNT 2.87 10^6/ul (4.20-5.40); RED CELL DISTRIBUTION WIDTH 21.3 % (11.5-14.5)
[2017-04-06] MEDS: LEVOFLOXACIN 250 MG TAB PO (05:55)
[2017-04-06] MEDS: METHADONE (1 MG/ML 5 ML PO UD SYG) PO (05:55)
[2017-04-06] MEDS: PANTOPRAZOLE 40 MG INJ IV (05:55)
[2017-04-06 06:00] LABS: POSITIVE DIFF @See below
[2017-04-06 06:09] LABS: ANION GAP 13 (8-16); BLOOD UREA NITROGEN 7 mg/dl (7-20); CARBON DIOXIDE 24 mmol/L (21-31); CHLORIDE 107 mmol/L (97-110); GLUCOSE 147 mg/dl (70-220); POTASSIUM 4.7 mmol/L (3.5-5.1); SODIUM 139 mmol/L (135-144)
[2017-04-06] MEDS: NIFEdipine (XL) 90 MG TAB PO (08:53)
[2017-04-06] MEDS: BUPROPION 75 MG TAB PO (08:53)
[2017-04-06] MEDS: DOCUSATE SODIUM 100 MG CAP PO ×2 (08:53→20:20)
[2017-04-06] MEDS: POLYETHYLENE GLYCOL 17 GM PACKET PO (08:54)
[2017-04-06] MEDS: ALLOPURINOL 100 MG TAB PO (08:54)
[2017-04-06] MEDS: FERROUS FUMARATE (SR) TAB PO (08:54)
[2017-04-06] MEDS: METOPROLOL 50 MG TAB PO ×2 (08:54→20:21)
[2017-04-06] MEDS: HYDROCORTISONE 2.5% 28.35 GM OINT TOP ×2 (08:55→20:22)
[2017-04-06] MEDS: ALPRAZOLAM 0.5 MG TAB PO ×2 (09:04→20:25)
[2017-04-06] MEDS: TRIAMTERENE/HCTZ (37.5-25) CAP PO (13:11)
[2017-04-06] MEDS: METHADONE (1 MG/1 ML PO SYG) PO ×2 (13:11→21:26)
[2017-04-06] MEDS ORDERED: HYDROmorphONE 0.5 MG/0.5 ML SYG IV (16:00)
[2017-04-06] MEDS: HYDROmorphONE 2 MG TAB PO (16:34)
[2017-04-06] MEDS: BISACODYL 10 MG SUPP PR (16:34)
[2017-04-06] MEDS: QUETIAPINE 100 MG TAB PO (18:13)
[2017-04-06] MEDS: AMITRIPTYLINE 50 MG TAB PO ×2 (18:13→21:28)
[2017-04-06] MEDS ORDERED: QUETIAPINE 25 MG TAB PO (18:15)
[2017-04-06] MEDS: HYDROCORTISONE 1% 26 GM RECT CR PR (20:19)
[2017-04-06] MEDS: MAGNESIUM CITRATE 300 ML BTL PO (20:19)
[2017-04-06] MEDS: ROPINIROLE 0.25 MG TAB PO (20:19)
[2017-04-06] MEDS: ONDANSETRON INJ 16 MG, DEXAMETHASONE 4 MG/ML 20 MG in DEXTROSE 5% 50 ML IV (21:21)
[2017-04-06] MEDS: MIRTAZAPINE 15 MG TAB PO (21:28)
[2017-04-06] MEDS: DEXTROSE 5% IV (21:55)
[2017-04-06] MEDS: ETOPOSIDE IV (21:55)
[2017-04-07] MEDS: LEVOFLOXACIN 250 MG TAB PO (05:05)
[2017-04-07] MEDS: LORAZEPAM 1 MG TAB PO ×3 (05:05→22:55)
[2017-04-07] MEDS: METHADONE (1 MG/1 ML PO SYG) PO ×3 (05:05→21:08)
[2017-04-07] MEDS: PANTOPRAZOLE 40 MG INJ IV (05:05)
[2017-04-07 05:34] LABS: ADD MAN DIFF? NO
[2017-04-07 05:39] LABS: WHITE BLOOD COUNT 3.3 10^3/ul (4.8-10.8)
[2017-04-07 05:39] LABS: ABNORMAL IP MESSAGE 1; HEMATOCRIT 25.1 % (37.0-47.0); HEMOGLOBIN 8.5 g/dl (12.0-16.0); LYMPHOCYTES # 0.1 10^3/ul (0.8-2.9); MEAN CORPUSCULAR HEMOGLOBIN 29.7 pg (29.0-33.0); MEAN CORPUSCULAR HGB CONC 33.9 g/dl (32.0-37.0); MEAN CORPUSCULAR VOLUME 87.8 fl (82.0-101.0); MEAN PLATELET VOLUME 10.1 fl (7.4-10.4); MONOCYTE # 0.1 10^3/ul (0.3-0.9); MONOCYTES % 2.5 % (0.0-11.0); NEUTROPHILS % 92.3 % (39.0-77.0); PLATELET COUNT 262 10^3/UL (140-415); RED BLOOD COUNT 2.86 10^6/ul (4.20-5.40); RED CELL DISTRIBUTION WIDTH 21.2 % (11.5-14.5)
[2017-04-07 05:53] LABS: POSITIVE DIFF @See below
[2017-04-07 06:05] LABS: ANION GAP 15 (8-16); BLOOD UREA NITROGEN 11 mg/dl (7-20); CALCIUM 7.9 mg/dl (8.4-10.2); CARBON DIOXIDE 26 mmol/L (21-31); CHLORIDE 103 mmol/L (97-110); CREATININE 0.47 mg/dl (0.44-1.00); GLUCOSE 147 mg/dl (70-220); POTASSIUM 4.4 mmol/L (3.5-5.1); SODIUM 140 mmol/L (135-144)
[2017-04-07] MEDS: POLYETHYLENE GLYCOL 17 GM PACKET PO (09:00)
[2017-04-07] MEDS: DOCUSATE SODIUM 100 MG CAP PO ×2 (09:00→21:00)
[2017-04-07] MEDS: FERROUS FUMARATE (SR) TAB PO (09:14)
[2017-04-07] MEDS: TRIAMTERENE/HCTZ (37.5-25) CAP PO (09:15)
[2017-04-07] MEDS: NIFEdipine (XL) 90 MG TAB PO (09:15)
[2017-04-07] MEDS: METOPROLOL 50 MG TAB PO (09:15)
[2017-04-07] MEDS: BUPROPION 75 MG TAB PO (09:15)
[2017-04-07] MEDS: ALLOPURINOL 100 MG TAB PO (09:15)
[2017-04-07] MEDS: AMITRIPTYLINE 50 MG TAB PO (09:15)
[2017-04-07] MEDS: HYDROCORTISONE 1% 26 GM RECT CR PR ×2 (09:16→21:14)
[2017-04-07] MEDS: QUETIAPINE 100 MG TAB PO ×2 (09:16→21:13)
[2017-04-07] MEDS: HYDROCORTISONE 2.5% 28.35 GM OINT TOP ×2 (09:17→21:14)
[2017-04-07] MEDS: METOPROLOL 100 MG TAB PO (21:12)
[2017-04-07] MEDS: ALPRAZOLAM 0.5 MG TAB PO (21:13)
[2017-04-07] MEDS: ROPINIROLE 0.25 MG TAB PO (21:13)
[2017-04-07] MEDS: ONDANSETRON INJ 16 MG, DEXAMETHASONE 4 MG/ML 20 MG in DEXTROSE 5% 50 ML IV (21:32)
[2017-04-07] MEDS: ETOPOSIDE IV (22:03)
[2017-04-07] MEDS: DEXTROSE 5% IV (22:03)
[2017-04-08] MEDS: CYCLOBENZAPRINE 10 MG TAB PO (00:29)
[2017-04-08] MEDS: ACETAMINOPHEN 500 MG TAB PO (01:00)
[2017-04-08] MEDS: HYDROmorphONE 2 MG TAB PO ×2 (02:02→16:43)
[2017-04-08] MEDS: DIPHENHYDRAMINE 25 MG CAP PO (02:05)
[2017-04-08] MEDS: PANTOPRAZOLE 40 MG INJ IV (06:25)
[2017-04-08] MEDS: METHADONE (1 MG/1 ML PO SYG) PO ×3 (06:27→21:23)
[2017-04-08 06:43] LABS: ABNORMAL IP MESSAGE 1; HEMATOCRIT 24.1 % (37.0-47.0); HEMOGLOBIN 8.3 g/dl (12.0-16.0); MEAN CORPUSCULAR HEMOGLOBIN 30.6 pg (29.0-33.0); MEAN CORPUSCULAR HGB CONC 34.4 g/dl (32.0-37.0); MEAN CORPUSCULAR VOLUME 88.9 fl (82.0-101.0); MEAN PLATELET VOLUME 9.6 fl (7.4-10.4); PLATELET COUNT 257 10^3/UL (140-415); RED BLOOD COUNT 2.71 10^6/ul (4.20-5.40); RED CELL DISTRIBUTION WIDTH 21.2 % (11.5-14.5)
[2017-04-08 06:43] LABS: WHITE BLOOD COUNT 2.6 10^3/ul (4.8-10.8)
[2017-04-08 06:55] LABS: ADD MAN DIFF? YES; POSITIVE DIFF @See below
[2017-04-08 07:05] LABS: URIC ACID 2.6 mg/dl (3.1-7.9)
[2017-04-08 07:10] LABS: ALANINE AMINOTRANSFERASE 48 IU/L (13-69); ALBUMIN 2.8 g/dl (3.3-4.9); ALBUMIN/GLOBULIN RATIO 1.07; ALKALINE PHOSPHATASE 186 IU/L (42-121); ANION GAP 12 (8-16); ASPARTATE AMINO TRANSFERASE 72 IU/L (15-46); BILIRUBIN,INDIRECT 0.1 mg/dl (0-1.1); BILIRUBIN,TOTAL 0.1 mg/dl (0.2-1.3); BLOOD UREA NITROGEN 13 mg/dl (7-20); CALCIUM 8.1 mg/dl (8.4-10.2); CARBON DIOXIDE 25 mmol/L (21-31); CHLORIDE 102 mmol/L (97-110); CREATININE 0.64 mg/dl (0.44-1.00); GLUCOSE 137 mg/dl (70-220); POTASSIUM 4.9 mmol/L (3.5-5.1); SODIUM 134 mmol/L (135-144); TOTAL PROTEIN 5.4 g/dl (6.1-8.1)
[2017-04-08 07:33] LABS: ANISOCYTOSIS 2+ (0-0); BAND NEUTROPHILS #M 0.1 10^3/ul (0.0-0.6); BAND NEUTROPHILS % (M) 4 % (0-4); BURR CELLS 1+ (0-0); GIANT THROMBO% (M) 1 % (0-0); LYMPHOCYTES #M 0.4 10^3/ul (0.8-2.9); LYMPHOCYTES % (M) 18 % (15-51); MONOCYTES % (M) 3 % (0-11); PLATELET ESTIMATE NORMAL; POIKILOCYTOSIS 1+ (0-0); POLYCHROMASIA 3+ (0-0); REACTIVE LYMPHOCYTES% (M) 1 % (0-0); SEG NEUT #M 1.9 10^3/ul (1.6-7.5); SEGMENTED NEUTROPHILS (M) % 74 % (39-77); SMUDGE%M 7 % (0-0)
[2017-04-08 07:46] LABS: LACTATE DEHYDROGENASE 2346 IU/L (313-618)
[2017-04-08] MEDS: NIFEdipine (XL) 90 MG TAB PO (10:02)
[2017-04-08] MEDS: POLYETHYLENE GLYCOL 17 GM PACKET PO (10:02)
[2017-04-08] MEDS: DOCUSATE SODIUM 100 MG CAP PO ×2 (10:02→21:21)
[2017-04-08] MEDS: FERROUS FUMARATE (SR) TAB PO (10:03)
[2017-04-08] MEDS: METOPROLOL 100 MG TAB PO ×2 (10:03→21:21)
[2017-04-08] MEDS: BUPROPION 75 MG TAB PO (10:03)
[2017-04-08] MEDS: AMITRIPTYLINE 50 MG TAB PO (10:03)
[2017-04-08] MEDS: QUETIAPINE 100 MG TAB PO ×2 (10:03→21:20)
[2017-04-08] MEDS: HYDROCORTISONE 1% 26 GM RECT CR PR ×2 (10:04→21:24)
[2017-04-08] MEDS: ALLOPURINOL 100 MG TAB PO (10:04)
[2017-04-08] MEDS: HYDROCORTISONE 2.5% 28.35 GM OINT TOP ×2 (10:04→21:24)
[2017-04-08] MEDS: ALPRAZOLAM 0.5 MG TAB PO ×2 (11:51→21:20)
[2017-04-08] MEDS: ROPINIROLE 0.25 MG TAB PO (21:20)
[2017-04-09 05:35] LABS: ADD MAN DIFF? NO
[2017-04-09 05:48] LABS: WHITE BLOOD COUNT 3.1 10^3/ul (4.8-10.8)
[2017-04-09 05:48] LABS: BASOPHILS % 0.3 % (0.0-2.0); HEMATOCRIT 20.8 % (37.0-47.0); LYMPHOCYTES # 0.9 10^3/ul (0.8-2.9); LYMPHOCYTES % 29.9 % (15.0-51.0); MEAN CORPUSCULAR HEMOGLOBIN 29.8 pg (29.0-33.0); MEAN CORPUSCULAR HGB CONC 33.7 g/dl (32.0-37.0); MEAN CORPUSCULAR VOLUME 88.5 fl (82.0-101.0); MEAN PLATELET VOLUME 10.1 fl (7.4-10.4); NEUTROPHIL # 2.1 10^3/ul (1.6-7.5); NEUTROPHILS % 66.8 % (39.0-77.0); PLATELET COUNT 276 10^3/UL (140-415); RED BLOOD COUNT 2.35 10^6/ul (4.20-5.40); RED CELL DISTRIBUTION WIDTH 20.9 % (11.5-14.5)
[2017-04-09] MEDS: METHADONE (1 MG/1 ML PO SYG) PO ×3 (06:03→21:47)
[2017-04-09] MEDS: PANTOPRAZOLE 40 MG INJ IV (06:03)
[2017-04-09 06:20] LABS: ALANINE AMINOTRANSFERASE 43 IU/L (13-69); ALBUMIN 2.8 g/dl (3.3-4.9); ALBUMIN/GLOBULIN RATIO 1.03; ALKALINE PHOSPHATASE 171 IU/L (42-121); ANION GAP 13 (8-16); ASPARTATE AMINO TRANSFERASE 61 IU/L (15-46); BILIRUBIN,INDIRECT 0.1 mg/dl (0-1.1); BILIRUBIN,TOTAL 0.1 mg/dl (0.2-1.3); BLOOD UREA NITROGEN 14 mg/dl (7-20); CALCIUM 7.9 mg/dl (8.4-10.2); CARBON DIOXIDE 25 mmol/L (21-31); CHLORIDE 104 mmol/L (97-110); CREATININE 0.58 mg/dl (0.44-1.00); GLUCOSE 83 mg/dl (70-220); POTASSIUM 4.2 mmol/L (3.5-5.1); SODIUM 138 mmol/L (135-144); TOTAL PROTEIN 5.5 g/dl (6.1-8.1); URIC ACID 2.7 mg/dl (3.1-7.9)
[2017-04-09 07:00] LABS: LACTATE DEHYDROGENASE 1993 IU/L (313-618)
[2017-04-09] MEDS: DOCUSATE SODIUM 100 MG CAP PO ×2 (09:09→21:00)
[2017-04-09] MEDS: BUPROPION 75 MG TAB PO (09:09)
[2017-04-09] MEDS: ALLOPURINOL 100 MG TAB PO (09:09)
[2017-04-09] MEDS: FERROUS FUMARATE (SR) TAB PO (09:09)
[2017-04-09] MEDS: QUETIAPINE 100 MG TAB PO ×2 (09:10→20:58)
[2017-04-09] MEDS: AMITRIPTYLINE 50 MG TAB PO (09:11)
[2017-04-09] MEDS: POLYETHYLENE GLYCOL 17 GM PACKET PO (09:12)
[2017-04-09] MEDS: METOPROLOL 100 MG TAB PO ×2 (09:12→20:58)
[2017-04-09] MEDS: ALPRAZOLAM 0.5 MG TAB PO ×2 (09:13→20:59)
[2017-04-09] MEDS: NIFEdipine (XL) 90 MG TAB PO (09:13)
[2017-04-09] MEDS: HYDROCORTISONE 2.5% 28.35 GM OINT TOP ×2 (09:15→21:51)
[2017-04-09] MEDS: HYDROCORTISONE 1% 26 GM RECT CR PR ×2 (09:15→21:51)
[2017-04-09 10:11] LABS: ADD MAN DIFF? NO
[2017-04-09 10:17] LABS: WHITE BLOOD COUNT 2.7 10^3/ul (4.8-10.8)
[2017-04-09 10:17] LABS: BASOPHILS % 0.4 % (0.0-2.0); EOSINOPHILS % 0.7 % (0.0-7.0); HEMATOCRIT 27.9 % (37.0-47.0); HEMOGLOBIN 9.4 g/dl (12.0-16.0); LYMPHOCYTES # 0.8 10^3/ul (0.8-2.9); LYMPHOCYTES % 30.3 % (15.0-51.0); MEAN CORPUSCULAR HEMOGLOBIN 29.8 pg (29.0-33.0); MEAN CORPUSCULAR HGB CONC 33.7 g/dl (32.0-37.0); MEAN CORPUSCULAR VOLUME 88.6 fl (82.0-101.0); MEAN PLATELET VOLUME 10.1 fl (7.4-10.4); MONOCYTES % 0.7 % (0.0-11.0); NEUTROPHIL # 1.9 10^3/ul (1.6-7.5); NEUTROPHILS % 67.5 % (39.0-77.0); PLATELET COUNT 295 10^3/UL (140-415); RED BLOOD COUNT 3.15 10^6/ul (4.20-5.40); RED CELL DISTRIBUTION WIDTH 21.1 % (11.5-14.5)
[2017-04-09] MEDS: BISACODYL 10 MG SUPP PR (12:51)
[2017-04-09] MEDS: MAGNESIUM HYDROXIDE 30ML CUP PO (17:41)
[2017-04-09] MEDS: FILGRASTIM 480 MCG INJ SC (17:43)
[2017-04-09] MEDS: LORAZEPAM 1 MG TAB PO (18:38)
[2017-04-09] MEDS: ROPINIROLE 0.25 MG TAB PO (20:57)
[2017-04-09] MEDS: HYDROmorphONE 2 MG TAB PO (21:47)
[2017-04-10] MEDS: CYCLOBENZAPRINE 10 MG TAB PO (01:53)
[2017-04-10] MEDS: METHADONE (1 MG/1 ML PO SYG) PO ×2 (05:19→14:23)
[2017-04-10] MEDS: PANTOPRAZOLE 40 MG INJ IV (05:19)
[2017-04-10 05:22] LABS: ABNORMAL IP MESSAGE 1; HEMATOCRIT 24.3 % (37.0-47.0); HEMOGLOBIN 8.3 g/dl (12.0-16.0); MEAN CORPUSCULAR HEMOGLOBIN 30.4 pg (29.0-33.0); MEAN CORPUSCULAR HGB CONC 34.2 g/dl (32.0-37.0); MEAN PLATELET VOLUME 9.7 fl (7.4-10.4); PLATELET COUNT 242 10^3/UL (140-415); RED BLOOD COUNT 2.73 10^6/ul (4.20-5.40); RED CELL DISTRIBUTION WIDTH 20.3 % (11.5-14.5)
[2017-04-10 05:32] LABS: ADD MAN DIFF? YES; POSITIVE DIFF @See below
[2017-04-10 05:43] LABS: ALBUMIN 2.8 g/dl (3.3-4.9); ANION GAP 12 (8-16); BLOOD UREA NITROGEN 12 mg/dl (7-20); CALCIUM 7.4 mg/dl (8.4-10.2); CARBON DIOXIDE 25 mmol/L (21-31); CHLORIDE 103 mmol/L (97-110); CREATININE 0.62 mg/dl (0.44-1.00); GLUCOSE 79 mg/dl (70-220); POTASSIUM 4.2 mmol/L (3.5-5.1); SODIUM 136 mmol/L (135-144)
[2017-04-10] MEDS: AMITRIPTYLINE 50 MG TAB PO (09:00)
[2017-04-10] MEDS: MAGNESIUM HYDROXIDE 30ML CUP PO (09:13)
[2017-04-10] MEDS: DOCUSATE SODIUM 100 MG CAP PO ×2 (09:14→20:59)
[2017-04-10] MEDS: NIFEdipine (XL) 90 MG TAB PO (09:14)
[2017-04-10] MEDS: FERROUS FUMARATE (SR) TAB PO (09:15)
[2017-04-10] MEDS: ALLOPURINOL 100 MG TAB PO (09:15)
[2017-04-10] MEDS: BUPROPION 75 MG TAB PO (09:15)
[2017-04-10] MEDS: METOPROLOL 100 MG TAB PO ×2 (09:15→20:59)
[2017-04-10] MEDS: QUETIAPINE 100 MG TAB PO ×2 (09:15→20:59)
[2017-04-10] MEDS: HYDROCORTISONE 1% 26 GM RECT CR PR ×2 (09:16→21:00)
[2017-04-10] MEDS: HYDROCORTISONE 2.5% 28.35 GM OINT TOP ×2 (09:16→21:02)
[2017-04-10] MEDS: POLYETHYLENE GLYCOL 17 GM PACKET PO (09:16)
[2017-04-10] MEDS: ALPRAZOLAM 0.5 MG TAB PO (09:16)
[2017-04-10 09:35] LABS: ANISOCYTOSIS 1+ (0-0); BAND NEUTROPHILS #M 0.6 10^3/ul (0.0-0.6); BAND NEUTROPHILS % (M) 9 % (0-4); GIANT THROMBO% (M) 3 % (0-0); LYMPHOCYTES #M 0.4 10^3/ul (0.8-2.9); LYMPHOCYTES % (M) 7 % (15-51); MYELOCYTES % (M) 1 % (0-0); PLATELET ESTIMATE NORMAL; POIKILOCYTOSIS 2+ (0-0); POLYCHROMASIA 1+ (0-0); SEG NEUT #M 5.9 10^3/ul (1.6-7.5); SEGMENTED NEUTROPHILS (M) % 83 % (39-77); SMUDGE%M 9 % (0-0)
[2017-04-10] MEDS: FILGRASTIM 480 MCG INJ SC (17:58)
[2017-04-10] MEDS: ROPINIROLE 0.25 MG TAB PO (20:59)
[2017-04-11] MEDS: ALPRAZOLAM 0.5 MG TAB PO ×3 (02:05→20:48)
[2017-04-11] MEDS: METHADONE (1 MG/1 ML PO SYG) PO ×5 (02:05→22:05)
[2017-04-11] MEDS: PANTOPRAZOLE 40 MG INJ IV (04:51)
[2017-04-11] MEDS: CYCLOBENZAPRINE 10 MG TAB PO (04:51)
[2017-04-11 05:10] LABS: ABNORMAL IP MESSAGE 1; HEMATOCRIT 22.5 % (37.0-47.0); HEMOGLOBIN 7.7 g/dl (12.0-16.0); MEAN CORPUSCULAR HEMOGLOBIN 30.2 pg (29.0-33.0); MEAN CORPUSCULAR HGB CONC 34.2 g/dl (32.0-37.0); MEAN CORPUSCULAR VOLUME 88.2 fl (82.0-101.0); MEAN PLATELET VOLUME 9.8 fl (7.4-10.4); PLATELET COUNT 167 10^3/UL (140-415); RED BLOOD COUNT 2.55 10^6/ul (4.20-5.40); RED CELL DISTRIBUTION WIDTH 20.3 % (11.5-14.5)
[2017-04-11 05:10] LABS: WHITE BLOOD COUNT 3.8 10^3/ul (4.8-10.8)
[2017-04-11 05:13] LABS: POSITIVE DIFF @See below
[2017-04-11 05:14] LABS: ADD MAN DIFF? YES
[2017-04-11 05:54] LABS: LACTATE DEHYDROGENASE 1556 IU/L (313-618)
[2017-04-11 05:54] LABS: URIC ACID 2.9 mg/dl (3.1-7.9)
[2017-04-11] MEDS: HYDROmorphONE 2 MG TAB PO (07:57)
[2017-04-11] MEDS: FERROUS FUMARATE (SR) TAB PO (08:48)
[2017-04-11] MEDS: DOCUSATE SODIUM 100 MG CAP PO ×2 (08:48→20:44)
[2017-04-11] MEDS: ALLOPURINOL 100 MG TAB PO (08:49)
[2017-04-11] MEDS: AMITRIPTYLINE 50 MG TAB PO ×2 (08:49→20:45)
[2017-04-11] MEDS: METOPROLOL 100 MG TAB PO ×2 (08:49→20:44)
[2017-04-11] MEDS: HYDROCORTISONE 2.5% 28.35 GM OINT TOP ×2 (08:50→20:48)
[2017-04-11] MEDS: POLYETHYLENE GLYCOL 17 GM PACKET PO (08:50)
[2017-04-11] MEDS: HYDROCORTISONE 1% 26 GM RECT CR PR ×2 (08:50→20:48)
[2017-04-11] MEDS: BUPROPION 75 MG TAB PO (08:54)
[2017-04-11] MEDS: QUETIAPINE 100 MG TAB PO ×2 (08:54→20:49)
[2017-04-11 09:52] LABS: ANISOCYTOSIS 1+ (0-0); BAND NEUTROPHILS #M 0.2 10^3/ul (0.0-0.6); BAND NEUTROPHILS % (M) 6 % (0-4); GIANT THROMBO% (M) 2 % (0-0); LYMPHOCYTES #M 0.8 10^3/ul (0.8-2.9); LYMPHOCYTES % (M) 22 % (15-51); MICROCYTOSIS 1+ (0-0); MONOCYTES % (M) 1 % (0-11); PLATELET ESTIMATE NORMAL; POIKILOCYTOSIS 2+ (0-0); POLYCHROMASIA 3+ (0-0); REACTIVE LYMPHOCYTES% (M) 2 % (0-0); SEG NEUT #M 2.6 10^3/ul (1.6-7.5); SEGMENTED NEUTROPHILS (M) % 69 % (39-77); SMUDGE%M 3 % (0-0)
[2017-04-11] MEDS: NIFEdipine (XL) 90 MG TAB PO (10:56)
[2017-04-11] MEDS: FILGRASTIM 480 MCG INJ SC (16:37)
[2017-04-11] MEDS: ROPINIROLE 0.25 MG TAB PO (20:45)
[2017-04-11] MEDS: MIRTAZAPINE 15 MG TAB PO (20:48)
[2017-04-12 05:23] LABS: ABNORMAL IP MESSAGE 1; HEMATOCRIT 23.6 % (37.0-47.0); HEMOGLOBIN 7.9 g/dl (12.0-16.0); MEAN CORPUSCULAR HEMOGLOBIN 29.8 pg (29.0-33.0); MEAN CORPUSCULAR HGB CONC 33.5 g/dl (32.0-37.0); MEAN CORPUSCULAR VOLUME 89.1 fl (82.0-101.0); MEAN PLATELET VOLUME 9.7 fl (7.4-10.4); PLATELET COUNT 136 10^3/UL (140-415); RED BLOOD COUNT 2.65 10^6/ul (4.20-5.40)
[2017-04-12 05:23] LABS: WHITE BLOOD COUNT 1.8 10^3/ul (4.8-10.8)
[2017-04-12] MEDS: PANTOPRAZOLE 40 MG INJ IV (05:36)
[2017-04-12] MEDS: LORAZEPAM 1 MG TAB PO (05:36)
[2017-04-12 05:37] LABS: ADD MAN DIFF? YES; POSITIVE DIFF @See below
[2017-04-12] MEDS: METHADONE (1 MG/1 ML PO SYG) PO ×3 (05:37→21:42)
[2017-04-12 05:38] LABS: ALANINE AMINOTRANSFERASE 44 IU/L (13-69); ALBUMIN/GLOBULIN RATIO 1.07; ALKALINE PHOSPHATASE 183 IU/L (42-121); ANION GAP 13 (8-16); ASPARTATE AMINO TRANSFERASE 36 IU/L (15-46); BILIRUBIN,INDIRECT 0.2 mg/dl (0-1.1); BILIRUBIN,TOTAL 0.2 mg/dl (0.2-1.3); BLOOD UREA NITROGEN 11 mg/dl (7-20); CALCIUM 7.8 mg/dl (8.4-10.2); CARBON DIOXIDE 24 mmol/L (21-31); CHLORIDE 102 mmol/L (97-110); CREATININE 0.63 mg/dl (0.44-1.00); GLUCOSE 88 mg/dl (70-220); POTASSIUM 4.3 mmol/L (3.5-5.1); SODIUM 135 mmol/L (135-144); TOTAL PROTEIN 5.8 g/dl (6.1-8.1)
[2017-04-12] MEDS: NIFEdipine (XL) 90 MG TAB PO (08:28)
[2017-04-12] MEDS: DOCUSATE SODIUM 100 MG CAP PO ×2 (08:28→21:41)
[2017-04-12] MEDS: HYDROCORTISONE 2.5% 28.35 GM OINT TOP ×2 (08:28→21:00)
[2017-04-12] MEDS: POLYETHYLENE GLYCOL 17 GM PACKET PO (08:28)
[2017-04-12] MEDS: HYDROCORTISONE 1% 26 GM RECT CR PR ×2 (08:28→21:00)
[2017-04-12] MEDS: ALPRAZOLAM 0.5 MG TAB PO ×2 (08:28→21:39)
[2017-04-12] MEDS: FERROUS FUMARATE (SR) TAB PO (08:28)
[2017-04-12] MEDS: AMITRIPTYLINE 50 MG TAB PO ×2 (08:29→21:40)
[2017-04-12] MEDS: BUPROPION 75 MG TAB PO (08:29)
[2017-04-12] MEDS: ALLOPURINOL 100 MG TAB PO (08:29)
[2017-04-12] MEDS: METOPROLOL 100 MG TAB PO ×2 (08:29→21:41)
[2017-04-12] MEDS: QUETIAPINE 100 MG TAB PO ×2 (08:29→21:39)
[2017-04-12 09:25] LABS: ANISOCYTOSIS 1+ (0-0); BAND NEUTROPHILS #M 0.1 10^3/ul (0.0-0.6); BAND NEUTROPHILS % (M) 7 % (0-4); BASOPHILS % (M) 1 % (0-2); BURR CELLS 1+ (0-0); LYMPHOCYTES #M 0.9 10^3/ul (0.8-2.9); LYMPHOCYTES % (M) 51 % (15-51); MICROCYTOSIS 1+ (0-0); PLATELET ESTIMATE DECREASED; POIKILOCYTOSIS 1+ (0-0); POLYCHROMASIA 1+ (0-0); SEG NEUT #M 0.7 10^3/ul (1.6-7.5); SEGMENTED NEUTROPHILS (M) % 41 % (39-77); SMUDGE%M 4 % (0-0)
[2017-04-12] MEDS: HYDROmorphONE 2 MG TAB PO (11:29)
[2017-04-12] MEDS: FILGRASTIM 480 MCG INJ SC (16:29)
[2017-04-12] MEDS: ROPINIROLE 0.25 MG TAB PO (21:39)
[2017-04-12] MEDS: MIRTAZAPINE 15 MG TAB PO (21:40)
[2017-04-12] MEDS: MAGNESIUM HYDROXIDE 30ML CUP PO (21:44)
[2017-04-13] MEDS: HYDROmorphONE 2 MG TAB PO ×4 (04:18→23:42)
[2017-04-13 04:49] LABS: HEMOGLOBIN 7.9 g/dl (12.0-16.0)
[2017-04-13] MEDS: METHADONE (1 MG/1 ML PO SYG) PO ×3 (05:55→21:54)
[2017-04-13] MEDS: PANTOPRAZOLE 40 MG INJ IV (05:55)
[2017-04-13 06:53] LABS: ABNORMAL IP MESSAGE 1; HEMATOCRIT 21.5 % (37.0-47.0); HEMOGLOBIN 7.4 g/dl (12.0-16.0); MEAN CORPUSCULAR HEMOGLOBIN 30.5 pg (29.0-33.0); MEAN CORPUSCULAR HGB CONC 34.4 g/dl (32.0-37.0); MEAN CORPUSCULAR VOLUME 88.5 fl (82.0-101.0); MEAN PLATELET VOLUME 10.8 fl (7.4-10.4); PLATELET COUNT 105 10^3/UL (140-415); RED BLOOD COUNT 2.43 10^6/ul (4.20-5.40); RED CELL DISTRIBUTION WIDTH 19.7 % (11.5-14.5)
[2017-04-13 06:53] LABS: WHITE BLOOD COUNT 0.8 10^3/ul (4.8-10.8)
[2017-04-13 07:11] LABS: ADD MAN DIFF? YES; POSITIVE DIFF @See below
[2017-04-13] MEDS: DOCUSATE SODIUM 100 MG CAP PO ×2 (09:00→21:56)
[2017-04-13] MEDS: QUETIAPINE 100 MG TAB PO ×2 (09:34→21:56)
[2017-04-13] MEDS: BUPROPION 75 MG TAB PO (09:34)
[2017-04-13] MEDS: POLYETHYLENE GLYCOL 17 GM PACKET PO (09:34)
[2017-04-13] MEDS: NIFEdipine (XL) 90 MG TAB PO (09:34)
[2017-04-13] MEDS: METOPROLOL 100 MG TAB PO ×2 (09:34→20:39)
[2017-04-13] MEDS: FERROUS FUMARATE (SR) TAB PO (09:34)
[2017-04-13] MEDS: AMITRIPTYLINE 50 MG TAB PO ×2 (09:34→21:56)
[2017-04-13] MEDS: ALPRAZOLAM 0.5 MG TAB PO ×2 (09:34→21:56)
[2017-04-13] MEDS: ALLOPURINOL 100 MG TAB PO (09:34)
[2017-04-13] MEDS: HYDROCORTISONE 2.5% 28.35 GM OINT TOP ×2 (09:35→21:00)
[2017-04-13] MEDS: HYDROCORTISONE 1% 26 GM RECT CR PR ×2 (09:36→21:57)
[2017-04-13 09:53] LABS: ANISOCYTOSIS 1+ (0-0); BAND NEUTROPHILS % (M) 2 % (0-4); BURR CELLS 2+ (0-0); GIANT THROMBO% (M) 2 % (0-0); LYMPHOCYTES #M 0.6 10^3/ul (0.8-2.9); LYMPHOCYTES % (M) 75 % (15-51); MONOCYTES % (M) 3 % (0-11); PLATELET ESTIMATE DECREASED; POIKILOCYTOSIS 1+ (0-0); POLYCHROMASIA 1+ (0-0); SEG NEUT #M 0.2 10^3/ul (1.6-7.5); SEGMENTED NEUTROPHILS (M) % 20 % (39-77); SMUDGE%M 7 % (0-0)
[2017-04-13 17:24] LABS: IMMEDIATE SPIN CROSSMATCH 1 2
[2017-04-13] MEDS: FILGRASTIM 480 MCG INJ SC (17:28)
[2017-04-13] MEDS: MIRTAZAPINE 15 MG TAB PO (20:37)
[2017-04-13] MEDS: CYCLOBENZAPRINE 10 MG TAB PO (20:38)
[2017-04-13] MEDS: ROPINIROLE 0.25 MG TAB PO (21:55)
[2017-04-13] MEDS: LORAZEPAM 1 MG TAB PO (23:42)
[2017-04-14] MEDS: DIPHENHYDRAMINE 25 MG CAP PO (02:11)
[2017-04-14] MEDS: ACETAMINOPHEN 500 MG TAB PO (02:11)
[2017-04-14] MEDS: PANTOPRAZOLE 40 MG INJ IV (05:46)
[2017-04-14] MEDS: METHADONE (1 MG/1 ML PO SYG) PO ×3 (05:46→21:09)
[2017-04-14 05:48] LABS: ABNORMAL IP MESSAGE 1; HEMATOCRIT 30.1 % (37.0-47.0); HEMOGLOBIN 10.3 g/dl (12.0-16.0); MEAN CORPUSCULAR HEMOGLOBIN 30.2 pg (29.0-33.0); MEAN CORPUSCULAR HGB CONC 34.2 g/dl (32.0-37.0); MEAN CORPUSCULAR VOLUME 88.3 fl (82.0-101.0); PLATELET COUNT 69 10^3/UL (140-415); RED BLOOD COUNT 3.41 10^6/ul (4.20-5.40); RED CELL DISTRIBUTION WIDTH 17.3 % (11.5-14.5)
[2017-04-14 05:48] LABS: WHITE BLOOD COUNT 0.7 10^3/ul (4.8-10.8)
[2017-04-14 06:30] LABS: POSITIVE DIFF @See below
[2017-04-14 06:31] LABS: ADD MAN DIFF? YES
[2017-04-14] MEDS: FERROUS FUMARATE (SR) TAB PO (10:19)
[2017-04-14] MEDS: ALLOPURINOL 100 MG TAB PO (10:19)
[2017-04-14] MEDS: DOCUSATE SODIUM 100 MG CAP PO ×2 (10:20→21:07)
[2017-04-14] MEDS: QUETIAPINE 100 MG TAB PO ×2 (10:20→21:07)
[2017-04-14] MEDS: NIFEdipine (XL) 90 MG TAB PO (10:20)
[2017-04-14] MEDS: METOPROLOL 100 MG TAB PO ×2 (10:21→21:06)
[2017-04-14] MEDS: AMITRIPTYLINE 50 MG TAB PO ×2 (10:21→21:04)
[2017-04-14] MEDS: POLYETHYLENE GLYCOL 17 GM PACKET PO (10:21)
[2017-04-14] MEDS: BUPROPION 75 MG TAB PO (10:21)
[2017-04-14] MEDS: ALPRAZOLAM 0.5 MG TAB PO ×2 (10:22→21:05)
[2017-04-14] MEDS: HYDROCORTISONE 1% 26 GM RECT CR PR ×2 (10:22→21:14)
[2017-04-14] MEDS: HYDROCORTISONE 2.5% 28.35 GM OINT TOP ×2 (10:22→21:13)
[2017-04-14] MEDS: HYDROmorphONE 2 MG TAB PO (10:54)
[2017-04-14] MEDS: FILGRASTIM 480 MCG INJ SC (16:33)
[2017-04-14] MEDS: ROPINIROLE 0.25 MG TAB PO (21:07)
[2017-04-14] MEDS: MIRTAZAPINE 15 MG TAB PO (21:07)
[2017-04-15] MEDS: LORAZEPAM 1 MG TAB PO (01:13)
[2017-04-15] MEDS: HYDROmorphONE 2 MG TAB PO ×3 (01:13→17:36)
[2017-04-15 05:51] LABS: WHITE BLOOD COUNT 0.6 10^3/ul (4.8-10.8)
[2017-04-15 05:51] LABS: ABNORMAL IP MESSAGE 1; HEMATOCRIT 29.8 % (37.0-47.0); HEMOGLOBIN 10.4 g/dl (12.0-16.0); MEAN CORPUSCULAR HEMOGLOBIN 30.5 pg (29.0-33.0); MEAN CORPUSCULAR HGB CONC 34.9 g/dl (32.0-37.0); MEAN CORPUSCULAR VOLUME 87.4 fl (82.0-101.0); MEAN PLATELET VOLUME 10.5 fl (7.4-10.4); RED BLOOD COUNT 3.41 10^6/ul (4.20-5.40); RED CELL DISTRIBUTION WIDTH 17.4 % (11.5-14.5)
[2017-04-15] MEDS: METHADONE (1 MG/1 ML PO SYG) PO ×3 (06:05→21:10)
[2017-04-15] MEDS: PANTOPRAZOLE 40 MG INJ IV (06:05)
[2017-04-15 06:21] LABS: ADD MAN DIFF? YES; PLATELET COUNT 47 10^3/UL (140-415); POSITIVE DIFF @See below
[2017-04-15 06:32] LABS: ALBUMIN 2.9 g/dl (3.3-4.9); ALBUMIN/GLOBULIN RATIO 1.07; ALKALINE PHOSPHATASE 173 IU/L (42-121); ANION GAP 13 (8-16); ASPARTATE AMINO TRANSFERASE 23 IU/L (15-46); BILIRUBIN,INDIRECT 0.3 mg/dl (0-1.1); BILIRUBIN,TOTAL 0.3 mg/dl (0.2-1.3); BLOOD UREA NITROGEN 12 mg/dl (7-20); CALCIUM 8.1 mg/dl (8.4-10.2); CARBON DIOXIDE 22 mmol/L (21-31); CHLORIDE 103 mmol/L (97-110); GLUCOSE 79 mg/dl (70-220); LACTATE DEHYDROGENASE 824 IU/L (313-618); POTASSIUM 4.4 mmol/L (3.5-5.1); SODIUM 134 mmol/L (135-144); TOTAL PROTEIN 5.6 g/dl (6.1-8.1)
[2017-04-15 06:40] LABS: ALANINE AMINOTRANSFERASE 31 IU/L (13-69)
[2017-04-15 07:52] LABS: ANISOCYTOSIS 1+ (0-0); BAND NEUTROPHILS % (M) 1 % (0-4); GIANT THROMBO% (M) 6 % (0-0); LYMPHOCYTES #M 0.5 10^3/ul (0.8-2.9); LYMPHOCYTES % (M) 95 % (15-51); MONOCYTES % (M) 2 % (0-11); PLATELET ESTIMATE DECREASED; POLYCHROMASIA 1+ (0-0); SEGMENTED NEUTROPHILS (M) % 2 % (39-77); SMUDGE%M 19 % (0-0)
[2017-04-15] MEDS: POLYETHYLENE GLYCOL 17 GM PACKET PO (08:46)
[2017-04-15] MEDS: METOPROLOL 100 MG TAB PO ×2 (08:48→21:10)
[2017-04-15] MEDS: FERROUS FUMARATE (SR) TAB PO (08:48)
[2017-04-15] MEDS: ALLOPURINOL 100 MG TAB PO (08:48)
[2017-04-15] MEDS: DOCUSATE SODIUM 100 MG CAP PO ×2 (08:48→21:11)
[2017-04-15] MEDS: QUETIAPINE 100 MG TAB PO ×2 (08:49→21:10)
[2017-04-15] MEDS: BUPROPION 75 MG TAB PO (08:49)
[2017-04-15] MEDS: NIFEdipine (XL) 90 MG TAB PO (08:50)
[2017-04-15] MEDS: ALPRAZOLAM 0.5 MG TAB PO ×2 (10:03→21:11)
[2017-04-15] MEDS: HYDROCORTISONE 1% 26 GM RECT CR PR ×2 (10:03→21:12)
[2017-04-15] MEDS: HYDROCORTISONE 2.5% 28.35 GM OINT TOP ×2 (10:03→21:13)
[2017-04-15] MEDS: BISACODYL 10 MG SUPP PR (17:36)
[2017-04-15] MEDS: FILGRASTIM 480 MCG INJ SC (18:54)
[2017-04-15] MEDS: ROPINIROLE 0.25 MG TAB PO (21:11)
[2017-04-15] MEDS: AMITRIPTYLINE 50 MG TAB PO (21:11)
[2017-04-15] MEDS: MIRTAZAPINE 15 MG TAB PO (21:11)
[2017-04-16] MEDS: LORAZEPAM 1 MG TAB PO (03:44)
[2017-04-16] MEDS: HYDROmorphONE 2 MG TAB PO ×2 (03:45→22:05)
[2017-04-16] MEDS: PANTOPRAZOLE 40 MG INJ IV (05:15)
[2017-04-16] MEDS: METHADONE (1 MG/1 ML PO SYG) PO ×3 (05:15→22:54)
[2017-04-16 05:43] LABS: WHITE BLOOD COUNT 0.9 10^3/ul (4.8-10.8)
[2017-04-16 05:43] LABS: ABNORMAL IP MESSAGE 1; HEMATOCRIT 30.2 % (37.0-47.0); HEMOGLOBIN 10.6 g/dl (12.0-16.0); MEAN CORPUSCULAR HEMOGLOBIN 30.7 pg (29.0-33.0); MEAN CORPUSCULAR HGB CONC 35.1 g/dl (32.0-37.0); MEAN CORPUSCULAR VOLUME 87.5 fl (82.0-101.0); MEAN PLATELET VOLUME 11.8 fl (7.4-10.4); PLATELET COUNT 39 10^3/UL (140-415); RED BLOOD COUNT 3.45 10^6/ul (4.20-5.40); RED CELL DISTRIBUTION WIDTH 17.2 % (11.5-14.5)
[2017-04-16 05:46] LABS: POSITIVE DIFF @See below
[2017-04-16 05:47] LABS: ADD MAN DIFF? YES
[2017-04-16 05:54] LABS: ANION GAP 16 (8-16); BLOOD UREA NITROGEN 8 mg/dl (7-20); CALCIUM 8.3 mg/dl (8.4-10.2); CARBON DIOXIDE 23 mmol/L (21-31); CHLORIDE 101 mmol/L (97-110); CREATININE 0.53 mg/dl (0.44-1.00); GLUCOSE 78 mg/dl (70-220); POTASSIUM 3.7 mmol/L (3.5-5.1); SODIUM 136 mmol/L (135-144)
[2017-04-16 08:01] LABS: ANISOCYTOSIS 1+ (0-0); BAND NEUTROPHILS % (M) 4 % (0-4); BURR CELLS 1+ (0-0); GIANT THROMBO% (M) 6 % (0-0); LYMPHOCYTES #M 0.6 10^3/ul (0.8-2.9); LYMPHOCYTES % (M) 70 % (15-51); MONOCYTES % (M) 3 % (0-11); OVALOCYTES 1+ (0-0); PLATELET ESTIMATE DECREASED; PLATELET MORPHOLOGY COMMENT @See below; POIKILOCYTOSIS 1+ (0-0); POLYCHROMASIA 3+ (0-0); REACTIVE LYMPHOCYTES% (M) 2 % (0-0); SEG NEUT #M 0.2 10^3/ul (1.6-7.5); SEGMENTED NEUTROPHILS (M) % 21 % (39-77); SMUDGE%M 15 % (0-0); TARGET CELLS 1+ (0-0)
[2017-04-16] MEDS: HYDROCORTISONE 1% 26 GM RECT CR PR ×2 (09:00→21:56)
[2017-04-16] MEDS: BUPROPION 75 MG TAB PO (09:28)
[2017-04-16] MEDS: FERROUS FUMARATE (SR) TAB PO (09:28)
[2017-04-16] MEDS: DOCUSATE SODIUM 100 MG CAP PO ×2 (09:28→21:55)
[2017-04-16] MEDS: ALPRAZOLAM 0.5 MG TAB PO ×2 (09:28→22:54)
[2017-04-16] MEDS: QUETIAPINE 100 MG TAB PO ×2 (09:29→22:54)
[2017-04-16] MEDS: POLYETHYLENE GLYCOL 17 GM PACKET PO (09:29)
[2017-04-16] MEDS: ALLOPURINOL 100 MG TAB PO (09:29)
[2017-04-16] MEDS: NIFEdipine (XL) 90 MG TAB PO (09:29)
[2017-04-16] MEDS: METOPROLOL 100 MG TAB PO ×2 (09:29→21:56)
[2017-04-16] MEDS: HYDROCORTISONE 2.5% 28.35 GM OINT TOP ×2 (09:31→21:56)
[2017-04-16] MEDS: FILGRASTIM 480 MCG INJ SC (18:40)
[2017-04-16] MEDS: MIRTAZAPINE 15 MG TAB PO (21:55)
[2017-04-16] MEDS: AMITRIPTYLINE 50 MG TAB PO (21:55)
[2017-04-16] MEDS: ROPINIROLE 0.25 MG TAB PO (21:55)
[2017-04-17] MEDS: CYCLOBENZAPRINE 10 MG TAB PO (04:43)
[2017-04-17] MEDS: PANTOPRAZOLE 40 MG INJ IV (04:45)
[2017-04-17 05:28] LABS: ABNORMAL IP MESSAGE 1; HEMATOCRIT 29.7 % (37.0-47.0); HEMOGLOBIN 10.3 g/dl (12.0-16.0); MEAN CORPUSCULAR HEMOGLOBIN 30.6 pg (29.0-33.0); MEAN CORPUSCULAR HGB CONC 34.7 g/dl (32.0-37.0); MEAN CORPUSCULAR VOLUME 88.1 fl (82.0-101.0); MEAN PLATELET VOLUME 12.2 fl (7.4-10.4); PLATELET COUNT 37 10^3/UL (140-415); RED BLOOD COUNT 3.37 10^6/ul (4.20-5.40); RED CELL DISTRIBUTION WIDTH 17.3 % (11.5-14.5)
[2017-04-17 05:39] LABS: ADD MAN DIFF? YES; POSITIVE DIFF @See below
[2017-04-17] MEDS: METHADONE (1 MG/1 ML PO SYG) PO ×3 (06:44→21:34)
[2017-04-17] MEDS: DOCUSATE SODIUM 100 MG CAP PO ×2 (09:46→21:33)
[2017-04-17] MEDS: POLYETHYLENE GLYCOL 17 GM PACKET PO (09:46)
[2017-04-17] MEDS: NIFEdipine (XL) 90 MG TAB PO (09:47)
[2017-04-17] MEDS: METOPROLOL 100 MG TAB PO ×2 (09:47→21:34)
[2017-04-17] MEDS: FERROUS FUMARATE (SR) TAB PO (09:47)
[2017-04-17] MEDS: QUETIAPINE 100 MG TAB PO ×2 (09:47→21:34)
[2017-04-17] MEDS: ALLOPURINOL 100 MG TAB PO (09:48)
[2017-04-17] MEDS: BUPROPION 75 MG TAB PO (09:48)
[2017-04-17] MEDS: ALPRAZOLAM 0.5 MG TAB PO ×2 (09:48→21:00)
[2017-04-17] MEDS: HYDROCORTISONE 1% 26 GM RECT CR PR ×2 (09:50→21:37)
[2017-04-17] MEDS: HYDROCORTISONE 2.5% 28.35 GM OINT TOP ×2 (09:50→21:37)
[2017-04-17] MEDS: FILGRASTIM 480 MCG INJ SC (18:05)
[2017-04-17] MEDS: HYDROmorphONE 2 MG TAB PO (18:15)
[2017-04-17] MEDS: ROPINIROLE 0.25 MG TAB PO (21:33)
[2017-04-17] MEDS: AMITRIPTYLINE 50 MG TAB PO (21:34)
[2017-04-17] MEDS: MIRTAZAPINE 15 MG TAB PO (21:34)
[2017-04-18] MEDS: LORAZEPAM 1 MG TAB PO (04:40)
[2017-04-18 05:18] LABS: WHITE BLOOD COUNT 2.1 10^3/ul (4.8-10.8)
[2017-04-18 05:18] LABS: ABNORMAL IP MESSAGE 1; HEMATOCRIT 28.4 % (37.0-47.0); HEMOGLOBIN 9.8 g/dl (12.0-16.0); MEAN CORPUSCULAR HEMOGLOBIN 30.3 pg (29.0-33.0); MEAN CORPUSCULAR HGB CONC 34.5 g/dl (32.0-37.0); MEAN CORPUSCULAR VOLUME 87.9 fl (82.0-101.0); MEAN PLATELET VOLUME 11.1 fl (7.4-10.4); PLATELET COUNT 38 10^3/UL (140-415); RED BLOOD COUNT 3.23 10^6/ul (4.20-5.40); RED CELL DISTRIBUTION WIDTH 17.3 % (11.5-14.5)
[2017-04-18 05:31] LABS: POSITIVE DIFF @See below
[2017-04-18 05:32] LABS: ADD MAN DIFF? YES
[2017-04-18 05:36] LABS: ALANINE AMINOTRANSFERASE 41 IU/L (13-69); ALBUMIN 2.9 g/dl (3.3-4.9); ALBUMIN/GLOBULIN RATIO 1.03; ALKALINE PHOSPHATASE 180 IU/L (42-121); ANION GAP 15 (8-16); ASPARTATE AMINO TRANSFERASE 30 IU/L (15-46); BILIRUBIN,INDIRECT 0.1 mg/dl (0-1.1); BILIRUBIN,TOTAL 0.1 mg/dl (0.2-1.3); BLOOD UREA NITROGEN 7 mg/dl (7-20); CARBON DIOXIDE 23 mmol/L (21-31); CHLORIDE 102 mmol/L (97-110); CREATININE 0.54 mg/dl (0.44-1.00); GLUCOSE 88 mg/dl (70-220); LACTATE DEHYDROGENASE 639 IU/L (313-618); POTASSIUM 3.8 mmol/L (3.5-5.1); SODIUM 136 mmol/L (135-144); TOTAL PROTEIN 5.7 g/dl (6.1-8.1)
[2017-04-18] MEDS: METHADONE (1 MG/1 ML PO SYG) PO ×3 (06:00→21:40)
[2017-04-18] MEDS: PANTOPRAZOLE 40 MG INJ IV (06:16)
[2017-04-18] MEDS: HYDROCORTISONE 2.5% 28.35 GM OINT TOP ×2 (09:28→21:00)
[2017-04-18] MEDS: POLYETHYLENE GLYCOL 17 GM PACKET PO (09:28)
[2017-04-18] MEDS: HYDROCORTISONE 1% 26 GM RECT CR PR ×2 (09:28→21:00)
[2017-04-18] MEDS: QUETIAPINE 100 MG TAB PO ×2 (09:29→21:12)
[2017-04-18] MEDS: BUPROPION 75 MG TAB PO (09:29)
[2017-04-18] MEDS: ALLOPURINOL 100 MG TAB PO (09:29)
[2017-04-18] MEDS: FERROUS FUMARATE (SR) TAB PO (09:29)
[2017-04-18] MEDS: DOCUSATE SODIUM 100 MG CAP PO ×2 (09:29→21:13)
[2017-04-18] MEDS: ALPRAZOLAM 0.5 MG TAB PO ×2 (09:30→21:13)
[2017-04-18] MEDS: NIFEdipine (XL) 90 MG TAB PO (09:30)
[2017-04-18] MEDS: METOPROLOL 100 MG TAB PO ×2 (09:31→21:13)
[2017-04-18 09:37] LABS: ANISOCYTOSIS 1+ (0-0); BAND NEUTROPHILS #M 0.2 10^3/ul (0.0-0.6); BAND NEUTROPHILS % (M) 13 % (0-4); GIANT THROMBO% (M) 1 % (0-0); HYPOCHROMASIA 1+ (0-0); LYMPHOCYTES #M 0.5 10^3/ul (0.8-2.9); LYMPHOCYTES % (M) 27 % (15-51); MONOCYTES % (M) 2 % (0-11); PLATELET ESTIMATE DECREASED; POLYCHROMASIA 3+ (0-0); REACTIVE LYMPHOCYTES% (M) 2 % (0-0); SEG NEUT #M 1.2 10^3/ul (1.6-7.5); SEGMENTED NEUTROPHILS (M) % 56 % (39-77); SMUDGE%M 4 % (0-0); TOXIC GRANULATION 1+ (0-0)
[2017-04-18] MEDS: HYDROmorphONE 2 MG TAB PO ×2 (09:45→18:49)
[2017-04-18] MEDS: FILGRASTIM 480 MCG INJ SC (17:56)
[2017-04-18] MEDS: MIRTAZAPINE 15 MG TAB PO (21:12)
[2017-04-18] MEDS: ROPINIROLE 0.25 MG TAB PO (21:12)
[2017-04-18] MEDS: AMITRIPTYLINE 50 MG TAB PO (21:13)
[2017-04-19 05:35] LABS: WHITE BLOOD COUNT 2.7 10^3/ul (4.8-10.8)
[2017-04-19 05:35] LABS: ABNORMAL IP MESSAGE 1; HEMATOCRIT 28.4 % (37.0-47.0); HEMOGLOBIN 9.7 g/dl (12.0-16.0); MEAN CORPUSCULAR HEMOGLOBIN 30.1 pg (29.0-33.0); MEAN CORPUSCULAR HGB CONC 34.2 g/dl (32.0-37.0); MEAN CORPUSCULAR VOLUME 88.2 fl (82.0-101.0); MEAN PLATELET VOLUME 12.5 fl (7.4-10.4); PLATELET COUNT 47 10^3/UL (140-415); RED BLOOD COUNT 3.22 10^6/ul (4.20-5.40); RED CELL DISTRIBUTION WIDTH 17.6 % (11.5-14.5)
[2017-04-19 05:39] LABS: POSITIVE DIFF @See below
[2017-04-19 05:40] LABS: ADD MAN DIFF? YES
[2017-04-19] MEDS: METHADONE (1 MG/1 ML PO SYG) PO ×3 (06:14→21:29)
[2017-04-19] MEDS: PANTOPRAZOLE 40 MG INJ IV (06:14)
[2017-04-19 07:38] LABS: ANISOCYTOSIS 1+ (0-0); BAND NEUTROPHILS #M 0.2 10^3/ul (0.0-0.6); BAND NEUTROPHILS % (M) 10 % (0-4); BURR CELLS 1+ (0-0); GIANT THROMBO% (M) 3 % (0-0); LYMPHOCYTES #M 1.7 10^3/ul (0.8-2.9); LYMPHOCYTES % (M) 66 % (15-51); PLATELET ESTIMATE DECREASED; POIKILOCYTOSIS 1+ (0-0); POLYCHROMASIA 1+ (0-0); REACTIVE LYMPHOCYTES% (M) 2 % (0-0); SEG NEUT #M 0.6 10^3/ul (1.6-7.5); SEGMENTED NEUTROPHILS (M) % 22 % (39-77); SMUDGE%M 19 % (0-0)
[2017-04-19] MEDS: POLYETHYLENE GLYCOL 17 GM PACKET PO (09:00)
[2017-04-19] MEDS: METOPROLOL 100 MG TAB PO ×2 (09:22→21:00)
[2017-04-19] MEDS: FERROUS FUMARATE (SR) TAB PO (09:22)
[2017-04-19] MEDS: DOCUSATE SODIUM 100 MG CAP PO ×2 (09:22→21:25)
[2017-04-19] MEDS: BUPROPION 75 MG TAB PO (09:23)
[2017-04-19] MEDS: NIFEdipine (XL) 90 MG TAB PO (09:23)
[2017-04-19] MEDS: QUETIAPINE 100 MG TAB PO ×2 (09:23→21:24)
[2017-04-19] MEDS: ALPRAZOLAM 0.5 MG TAB PO ×2 (09:24→21:25)
[2017-04-19] MEDS: HYDROCORTISONE 2.5% 28.35 GM OINT TOP ×2 (09:24→21:00)
[2017-04-19] MEDS: ALLOPURINOL 100 MG TAB PO (09:24)
[2017-04-19] MEDS: HYDROCORTISONE 1% 26 GM RECT CR PR ×2 (09:25→21:00)
[2017-04-19] MEDS: HYDROmorphONE 0.5 MG/0.5 ML SYG IV (10:02)
[2017-04-19] MEDS: FILGRASTIM 480 MCG INJ SC (17:09)
[2017-04-19] MEDS: CYCLOBENZAPRINE 10 MG TAB PO (20:01)
[2017-04-19] MEDS: ROPINIROLE 0.25 MG TAB PO (21:24)
[2017-04-19] MEDS: AMITRIPTYLINE 50 MG TAB PO (21:25)
[2017-04-19] MEDS: MIRTAZAPINE 15 MG TAB PO (21:26)
[2017-04-19] MEDS: LORAZEPAM 1 MG TAB PO (22:43)
[2017-04-20] MEDS: HYDROmorphONE 2 MG TAB PO ×4 (03:47→22:19)
[2017-04-20] MEDS: HYDROmorphONE 0.5 MG/0.5 ML SYG IV (04:43)
[2017-04-20 05:21] LABS: WHITE BLOOD COUNT 3.3 10^3/ul (4.8-10.8)
[2017-04-20 05:21] LABS: ABNORMAL IP MESSAGE 1; HEMATOCRIT 27.3 % (37.0-47.0); HEMOGLOBIN 9.4 g/dl (12.0-16.0); MEAN CORPUSCULAR HEMOGLOBIN 30.5 pg (29.0-33.0); MEAN CORPUSCULAR HGB CONC 34.4 g/dl (32.0-37.0); MEAN CORPUSCULAR VOLUME 88.6 fl (82.0-101.0); PLATELET COUNT 50 10^3/UL (140-415); POSITIVE DIFF @See below; RED BLOOD COUNT 3.08 10^6/ul (4.20-5.40); RED CELL DISTRIBUTION WIDTH 17.5 % (11.5-14.5)
[2017-04-20 05:22] LABS: ADD MAN DIFF? YES
[2017-04-20] MEDS: METHADONE (1 MG/1 ML PO SYG) PO ×3 (06:27→21:11)
[2017-04-20] MEDS: PANTOPRAZOLE (EC) 40 MG TAB PO (06:27)
[2017-04-20 07:47] LABS: ANISOCYTOSIS 1+ (0-0); BAND NEUTROPHILS #M 0.3 10^3/ul (0.0-0.6); BAND NEUTROPHILS % (M) 10 % (0-4); GIANT THROMBO% (M) 5 % (0-0); LYMPHOCYTES #M 1.3 10^3/ul (0.8-2.9); LYMPHOCYTES % (M) 41 % (15-51); MONOCYTE #M 0.1 10^3/ul (0.3-0.9); MONOCYTES % (M) 5 % (0-11); PLATELET ESTIMATE SIG DECREASED; POIKILOCYTOSIS 1+ (0-0); POLYCHROMASIA 1+ (0-0); REACTIVE LYMPHOCYTES #M 0.1 10^3/ul (0.0-0.0); REACTIVE LYMPHOCYTES% (M) 6 % (0-0); SEG NEUT #M 1.3 10^3/ul (1.6-7.5); SEGMENTED NEUTROPHILS (M) % 38 % (39-77); SMUDGE%M 4 % (0-0)
[2017-04-20] MEDS: SOD CHLORIDE 0.9% 100 ML (09:47)
[2017-04-20] MEDS: IOHEXOL 300MG/ML 150 ML BTL (09:47)
[2017-04-20] MEDS: FERROUS FUMARATE (SR) TAB PO (10:23)
[2017-04-20] MEDS: BUPROPION 75 MG TAB PO (10:24)
[2017-04-20] MEDS: DOCUSATE SODIUM 100 MG CAP PO ×2 (10:24→21:12)
[2017-04-20] MEDS: ALPRAZOLAM 0.5 MG TAB PO ×2 (10:24→21:15)
[2017-04-20] MEDS: ALLOPURINOL 100 MG TAB PO (10:25)
[2017-04-20] MEDS: QUETIAPINE 100 MG TAB PO ×2 (10:25→21:15)
[2017-04-20] MEDS: HYDROCORTISONE 2.5% 28.35 GM OINT TOP ×2 (10:26→21:00)
[2017-04-20] MEDS: HYDROCORTISONE 1% 26 GM RECT CR PR ×2 (10:26→21:16)
[2017-04-20] MEDS: POLYETHYLENE GLYCOL 17 GM PACKET PO (10:27)
[2017-04-20] MEDS: NIFEdipine (XL) 90 MG TAB PO (10:27)
[2017-04-20] MEDS: METOPROLOL 100 MG TAB PO ×2 (10:27→21:12)
[2017-04-20] MEDS: FILGRASTIM 480 MCG INJ SC (18:41)
[2017-04-20] MEDS: AMITRIPTYLINE 50 MG TAB PO (21:14)
[2017-04-20] MEDS: ROPINIROLE 0.25 MG TAB PO (21:14)
[2017-04-20] MEDS: MIRTAZAPINE 15 MG TAB PO (21:16)
[2017-04-21 05:18] LABS: ABNORMAL IP MESSAGE 1; HEMATOCRIT 25.9 % (37.0-47.0); HEMOGLOBIN 8.9 g/dl (12.0-16.0); MEAN CORPUSCULAR HEMOGLOBIN 30.7 pg (29.0-33.0); MEAN CORPUSCULAR HGB CONC 34.4 g/dl (32.0-37.0); MEAN CORPUSCULAR VOLUME 89.3 fl (82.0-101.0); MEAN PLATELET VOLUME 12.3 fl (7.4-10.4); NUCLEATED RED BLOOD CELLS% 0.4 /100WBC (0.0-0.0); PLATELET COUNT 61 10^3/UL (140-415); RED CELL DISTRIBUTION WIDTH 17.8 % (11.5-14.5)
[2017-04-21 05:18] LABS: WHITE BLOOD COUNT 5.1 10^3/ul (4.8-10.8)
[2017-04-21] MEDS: METHADONE (1 MG/1 ML PO SYG) PO ×2 (05:18→14:36)
[2017-04-21] MEDS: PANTOPRAZOLE (EC) 40 MG TAB PO (05:18)
[2017-04-21 05:19] LABS: ADD MAN DIFF? YES; POSITIVE DIFF @See below
[2017-04-21] MEDS: LORAZEPAM 1 MG TAB PO (05:23)
[2017-04-21 09:23] LABS: ANISOCYTOSIS 1+ (0-0); BAND NEUTROPHILS #M 0.5 10^3/ul (0.0-0.6); BAND NEUTROPHILS % (M) 11 % (0-4); GIANT THROMBO% (M) 6 % (0-0); LYMPHOCYTES #M 1.2 10^3/ul (0.8-2.9); LYMPHOCYTES % (M) 25 % (15-51); MONOCYTE #M 0.5 10^3/ul (0.3-0.9); MONOCYTES % (M) 10 % (0-11); MYELOCYTES #M 0.1 10^3/ul (0.0-0.0); MYELOCYTES % (M) 2 % (0-0); PLATELET ESTIMATE SIG DECREASED; POLYCHROMASIA 3+ (0-0); REACTIVE LYMPHOCYTES #M 0.1 10^3/ul (0.0-0.0); REACTIVE LYMPHOCYTES% (M) 2 % (0-0); SEG NEUT #M 2.6 10^3/ul (1.6-7.5); SEGMENTED NEUTROPHILS (M) % 50 % (39-77); SMUDGE%M 5 % (0-0)
[2017-04-21] MEDS: FERROUS FUMARATE (SR) TAB PO (09:25)
[2017-04-21] MEDS: DOCUSATE SODIUM 100 MG CAP PO (09:25)
[2017-04-21] MEDS: ALLOPURINOL 100 MG TAB PO (09:26)
[2017-04-21] MEDS: METOPROLOL 100 MG TAB PO (09:26)
[2017-04-21] MEDS: POLYETHYLENE GLYCOL 17 GM PACKET PO (09:27)
[2017-04-21] MEDS: HYDROCORTISONE 2.5% 28.35 GM OINT TOP (09:30)
[2017-04-21] MEDS: HYDROCORTISONE 1% 26 GM RECT CR PR (09:30)
[2017-04-21] MEDS: QUETIAPINE 100 MG TAB PO (09:30)
[2017-04-21] MEDS: NIFEdipine (XL) 90 MG TAB PO (11:47)
[2017-04-21] MEDS: BUPROPION 75 MG TAB PO (12:11)
[2017-04-21] MEDS: ALPRAZOLAM 0.5 MG TAB PO (12:12)
[2017-04-21] MEDS: HYDROmorphONE 2 MG TAB PO (12:32)
[2017-04-21] MEDS: MAGNESIUM HYDROXIDE 30ML CUP PO (14:54)
[2017-04-21] MEDS: BISACODYL 10 MG SUPP PR (14:57)
[2017-04-21] MEDS: FILGRASTIM 480 MCG INJ SC (16:44)
== END 2017-04-21 18:50 | DRG 456 ==
LOC: ICU 14:43 → MS2 03-15 16:33 → ICU 03-25 14:08 → MS1 03-28 19:10 → E/R 11:20 → MS4 03-10 21:55
PROC: 0RG70K1 Fusion of 2 to 7 Thoracic Vertebral Joints with Nonautologous Tissue Substitute, Posterior Approach, Posterior Column, Open Approach (ICD-10-PCS; principal; 2017-03-25 07:30)
PROC: 0RG10K1 Fusion of Cervical Vertebral Joint with Nonautologous Tissue Substitute, Posterior Approach, Posterior Column, Open Approach (ICD-10-PCS; 2017-03-25 07:30)
PROC: 00NX0ZZ Release Thoracic Spinal Cord, Open Approach (ICD-10-PCS; 2017-03-25 07:30)
PROC: 0RB90ZZ Excision of Thoracic Vertebral Disc, Open Approach (ICD-10-PCS; 2017-03-25 07:30)
PROC: 0QB33ZX Excision of Left Pelvic Bone, Percutaneous Approach, Diagnostic (ICD-10-PCS; 2017-03-25 07:50)
PROC: 02HV33Z Insertion of Infusion Device into Superior Vena Cava, Percutaneous Approach (ICD-10-PCS; 2017-03-25 07:50)
PROC: 3E06305 Introduction of Other Antineoplastic into Central Artery, Percutaneous Approach (ICD-10-PCS; 2017-03-25 07:50)
PROC: 30233N1 Transfusion of Nonautologous Red Blood Cells into Peripheral Vein, Percutaneous Approach (ICD-10-PCS; 2017-03-25 07:50)
DX: M84.58XA Pathological fracture in neoplastic disease, other specified site, initial encounter for fracture (principal); J96.01 Acute respiratory failure with hypoxia; J18.9 Pneumonia, unspecified organism; D61.810 Antineoplastic chemotherapy induced pancytopenia; R64 Cachexia; R78.81 Bacteremia; C78.7 Secondary malignant neoplasm of liver and intrahepatic bile duct; C79.49 Secondary malignant neoplasm of other parts of nervous system; C79.51 Secondary malignant neoplasm of bone; C34.01 Malignant neoplasm of right main bronchus; N39.0 Urinary tract infection, site not specified; G95.29 Other cord compression; F31.89 Other bipolar disorder; Z68.1 Body mass index [BMI] 19.9 or less, adult; B96.89 Other specified bacterial agents as the cause of diseases classified elsewhere; D64.9 Anemia, unspecified; R06.81 Apnea, not elsewhere classified; K73.9 Chronic hepatitis, unspecified; G89.3 Neoplasm related pain (acute) (chronic); R79.89 Other specified abnormal findings of blood chemistry; I10 Essential (primary) hypertension; R09.02 Hypoxemia; M53.2X4 Spinal instabilities, thoracic region; T42.4X4A Poisoning by benzodiazepines, undetermined, initial encounter; T40.2X4A Poisoning by other opioids, undetermined, initial encounter; Y92.238 Other place in hospital as the place of occurrence of the external cause; Z72.0 Tobacco use; K59.00 Constipation, unspecified
CPT/HCPCS: 36415; 36430; 36569; 36600; 70553; 71045; 71250; 71260; 72040; 72072; 72128; 72156; 72157; 72158; 74176; 76937; 77012; 80048; 80053; 82040; 82270; 82310; 82378; 82607; 82746; 82803; 82962; 83540; 83605; 83615; 83690; 83735; 84100; 84134; 84443; 84484; 84560; 85014; 85018; 85025; 85045; 85610; 85651; 85730; 86480; 86635; 86850; 86900; 86901; 86920; 87040; 87081; 87086; 88304; 88305; 88311; 88313; 88341; 88342; 90686; 93005; 93306; 94660; 96374; 96375; 96376; 97110; 97116; 97162; 97530; 99291-25; C9359; J1940; J3487; J9045; J9181

== ENCOUNTER 2017-04-21 19:21 | Inpatient (IN) | payer MEDICARE, OTHER ==
[2017-04-21] MEDS ORDERED: MAGNESIUM HYDROXIDE 30ML CUP PO (21:03)
[2017-04-21] MEDS ORDERED: MIRTAZAPINE 15 MG TAB PO (21:03)
[2017-04-21] MEDS ORDERED: DOCUSATE SODIUM 100 MG CAP PO (21:03)
[2017-04-21] MEDS ORDERED: ONDANSETRON 4 MG INJ IV (21:03)
[2017-04-21] MEDS ORDERED: METOPROLOL 100 MG TAB PO (21:03)
[2017-04-21] MEDS ORDERED: AMITRIPTYLINE 50 MG TAB PO (21:03)
[2017-04-21] MEDS ORDERED: ROPINIROLE 0.25 MG TAB PO (21:03)
[2017-04-21] MEDS ORDERED: QUETIAPINE 100 MG TAB PO (21:03)
[2017-04-21] MEDS ORDERED: DIPHENHYDRAMINE 25 MG CAP PO (21:03)
[2017-04-21] MEDS ORDERED: BISACODYL 10 MG SUPP PR (21:03)
[2017-04-21] MEDS ORDERED: CYCLOBENZAPRINE 10 MG TAB PO (21:03)
[2017-04-21] MEDS ORDERED: ACETAMINOPHEN 500 MG TAB PO (21:03)
[2017-04-21] MEDS ORDERED: NALOXONE (0.4 MG/ML) INJ IV (21:03)
[2017-04-21] MEDS ORDERED: ALPRAZOLAM 0.5 MG TAB PO (21:03)
[2017-04-21] MEDS ORDERED: METHADONE (1 MG/1 ML PO SYG) PO (21:03)
[2017-04-21] MEDS ORDERED: ALPRAZOLAM 0.25 MG TAB PO (21:30)
[2017-04-21] MEDS ORDERED: METHADONE (1 MG/ML 5 ML PO UD SYG) PO (22:00)
[2017-04-21] MEDS: DOCUSATE SODIUM 100 MG CAP PO (23:15)
[2017-04-21] MEDS: AMITRIPTYLINE 50 MG TAB PO ×2 (23:15→23:21)
[2017-04-21] MEDS: METOPROLOL 100 MG TAB PO (23:15)
[2017-04-21] MEDS: ROPINIROLE 0.25 MG TAB PO ×2 (23:15→23:18)
[2017-04-21] MEDS: QUETIAPINE 100 MG TAB PO (23:17)
[2017-04-21] MEDS: MIRTAZAPINE 15 MG TAB PO (23:17)
[2017-04-21] MEDS: ALPRAZOLAM 0.25 MG TAB PO (23:18)
[2017-04-21] MEDS: METHADONE (1 MG/ML 5 ML PO UD SYG) PO (23:22)
[2017-04-21] MEDS: LORAZEPAM 1 MG TAB PO (23:29)
[2017-04-22] MEDS: PANTOPRAZOLE (EC) 40 MG TAB PO (06:39)
[2017-04-22] MEDS: METHADONE (1 MG/ML 5 ML PO UD SYG) PO ×3 (06:40→21:33)
[2017-04-22 07:20] LABS: WHITE BLOOD COUNT 8.3 10^3/ul (4.8-10.8)
[2017-04-22 07:20] LABS: ABNORMAL IP MESSAGE 1; HEMATOCRIT 27.7 % (37.0-47.0); HEMOGLOBIN 9.6 g/dl (12.0-16.0); MEAN CORPUSCULAR HEMOGLOBIN 30.7 pg (29.0-33.0); MEAN CORPUSCULAR HGB CONC 34.7 g/dl (32.0-37.0); MEAN CORPUSCULAR VOLUME 88.5 fl (82.0-101.0); MEAN PLATELET VOLUME 12.1 fl (7.4-10.4); NUCLEATED RED BLOOD CELLS% 0.4 /100WBC (0.0-0.0); PLATELET COUNT 77 10^3/UL (140-415); RED BLOOD COUNT 3.13 10^6/ul (4.20-5.40); RED CELL DISTRIBUTION WIDTH 18.1 % (11.5-14.5)
[2017-04-22 07:28] LABS: POSITIVE DIFF @See below
[2017-04-22 07:29] LABS: ADD MAN DIFF? YES
[2017-04-22] MEDS: CYCLOBENZAPRINE 10 MG TAB PO (07:42)
[2017-04-22] MEDS: HYDROmorphONE 2 MG TAB PO ×2 (07:42→16:24)
[2017-04-22 07:53] LABS: ALANINE AMINOTRANSFERASE 26 IU/L (13-69); ALBUMIN 3.1 g/dl (3.3-4.9); ALKALINE PHOSPHATASE 219 IU/L (42-121); ANION GAP 9 (8-16); ASPARTATE AMINO TRANSFERASE 26 IU/L (15-46); BLOOD UREA NITROGEN 9 mg/dl (7-20); CALCIUM 8.2 mg/dl (8.4-10.2); CARBON DIOXIDE 24 mmol/L (21-31); CHLORIDE 104 mmol/L (97-110); CREATININE 0.53 mg/dl (0.44-1.00); GLUCOSE 96 mg/dl (70-220); POTASSIUM 4.3 mmol/L (3.5-5.1); SODIUM 133 mmol/L (135-144); TOTAL PROTEIN 5.9 g/dl (6.1-8.1)
[2017-04-22] MEDS: HYDROCORTISONE 2.5% 28.35 GM OINT TOP ×2 (08:55→21:27)
[2017-04-22] MEDS: HYDROCORTISONE 1% 26 GM RECT CR PR ×2 (08:55→21:28)
[2017-04-22] MEDS: POLYETHYLENE GLYCOL 17 GM PACKET PO (08:55)
[2017-04-22] MEDS: FERROUS FUMARATE (SR) TAB PO (08:56)
[2017-04-22] MEDS: DOCUSATE SODIUM 100 MG CAP PO ×2 (08:56→21:24)
[2017-04-22] MEDS: ALLOPURINOL 100 MG TAB PO (08:56)
[2017-04-22] MEDS: BUPROPION 75 MG TAB PO (08:56)
[2017-04-22] MEDS: QUETIAPINE 100 MG TAB PO ×2 (08:57→21:25)
[2017-04-22] MEDS: NIFEdipine (XL) 90 MG TAB PO (08:57)
[2017-04-22] MEDS: METOPROLOL 100 MG TAB PO ×2 (09:00→21:27)
[2017-04-22] MEDS: ALPRAZOLAM 0.25 MG TAB PO ×2 (09:00→21:25)
[2017-04-22 09:08] LABS: ANISOCYTOSIS 1+ (0-0); ERYTHROBLAST% (NRBC) (M) 1 % (0-0); PLATELET ESTIMATE DECREASED; POLYCHROMASIA 3+ (0-0); PROMYELOCYTES % (M) 1 % (0-0)
[2017-04-22 09:38] LABS: BAND NEUTROPHILS #M 1.4 10^3/ul (0.0-0.6); BAND NEUTROPHILS % (M) 18 % (0-4); EOSINOPHILS % (M) 1 % (0-7); LYMPHOCYTES #M 1.9 10^3/ul (0.8-2.9); LYMPHOCYTES % (M) 23 % (15-51); MONOCYTE #M 1.1 10^3/ul (0.3-0.9); MONOCYTES % (M) 14 % (0-11); MYELOCYTES % (M) 1 % (0-0); POIKILOCYTOSIS 1+ (0-0); REACTIVE LYMPHOCYTES #M 0.1 10^3/ul (0.0-0.0); REACTIVE LYMPHOCYTES% (M) 2 % (0-0); SEG NEUT #M 3.4 10^3/ul (1.6-7.5); SEGMENTED NEUTROPHILS (M) % 40 % (39-77); SMUDGE%M 3 % (0-0)
[2017-04-22 15:51] LABS: ADD UMIC YES; UR ASCORBIC ACID 40 mg/dL (NEGATIVE); UR BACTERIA FEW /HPF (NONE SEEN); UR BILIRUBIN (Dip) NEGATIVE (NEGATIVE); UR BLOOD (Dip) NEGATIVE (NEGATIVE); UR CLARITY CLEAR (CLEAR); UR COLOR YELLOW (YELLOW); UR GLUCOSE (Dip) NEGATIVE (NEGATIVE); UR KETONES (Dip) NEGATIVE (NEGATIVE); UR LEUKOCYTE ESTERASE (Dip) 1+ Leu/ul (NEGATIVE); UR NITRITE (Dip) NEGATIVE (NEGATIVE); UR NONSQUAMOUS EPITHELIAL CELL 1 /HPF (NONE SEEN); UR RBC 2 /HPF (0-5); UR SPECIFIC GRAVITY (Dip) 1.012 (1.003-1.030); UR SQUAMOUS EPITHELIAL CELL FEW /HPF (FEW); UR TOTAL PROTEIN (Dip) NEGATIVE (NEGATIVE); UR UROBILINOGEN (Dip) NEGATIVE (NEGATIVE); UR WBC 13 /HPF (0-5)
[2017-04-22] MEDS: SENNA TAB PO (21:00)
[2017-04-22] MEDS: ROPINIROLE 0.25 MG TAB PO (21:00)
[2017-04-22] MEDS: AMITRIPTYLINE 50 MG TAB PO (21:24)
[2017-04-22] MEDS: MIRTAZAPINE 15 MG TAB PO (21:26)
[2017-04-23] MEDS: METHADONE (1 MG/ML 5 ML PO UD SYG) PO ×3 (06:01→21:33)
[2017-04-23] MEDS: PANTOPRAZOLE (EC) 40 MG TAB PO (06:02)
[2017-04-23 08:17] LABS: ANION GAP 15 (8-16); BLOOD UREA NITROGEN 7 mg/dl (7-20); CALCIUM 7.9 mg/dl (8.4-10.2); CARBON DIOXIDE 25 mmol/L (21-31); CHLORIDE 103 mmol/L (97-110); CREATININE 0.54 mg/dl (0.44-1.00); GLUCOSE 80 mg/dl (70-220); POTASSIUM 4.3 mmol/L (3.5-5.1); SODIUM 139 mmol/L (135-144)
[2017-04-23] MEDS: METOPROLOL 100 MG TAB PO ×2 (09:00→21:24)
[2017-04-23] MEDS: NIFEdipine (XL) 90 MG TAB PO (09:00)
[2017-04-23] MEDS: ALPRAZOLAM 0.25 MG TAB PO ×2 (09:05→21:25)
[2017-04-23] MEDS: BACLOFEN 10 MG TAB PO (09:06)
[2017-04-23] MEDS: BUPROPION 75 MG TAB PO (09:06)
[2017-04-23] MEDS: ALLOPURINOL 100 MG TAB PO (09:06)
[2017-04-23] MEDS: QUETIAPINE 100 MG TAB PO ×2 (09:06→21:24)
[2017-04-23] MEDS: FERROUS FUMARATE (SR) TAB PO (09:06)
[2017-04-23] MEDS: DOCUSATE SODIUM 100 MG CAP PO ×2 (09:08→21:23)
[2017-04-23] MEDS: HYDROCORTISONE 1% 26 GM RECT CR PR ×2 (09:18→21:00)
[2017-04-23] MEDS: HYDROCORTISONE 2.5% 28.35 GM OINT TOP ×2 (09:18→21:00)
[2017-04-23] MEDS: POLYETHYLENE GLYCOL 17 GM PACKET PO (09:18)
[2017-04-23] MEDS: SENNA TAB PO (21:00)
[2017-04-23] MEDS: MIRTAZAPINE 15 MG TAB PO ×2 (21:24→22:00)
[2017-04-23] MEDS: AMITRIPTYLINE 50 MG TAB PO ×2 (21:24→22:00)
[2017-04-23] MEDS: LORAZEPAM 1 MG TAB PO (21:32)
[2017-04-23] MEDS: ROPINIROLE 0.25 MG TAB PO ×2 (21:34→22:00)
[2017-04-24] MEDS: PANTOPRAZOLE (EC) 40 MG TAB PO (06:53)
[2017-04-24] MEDS: METHADONE (1 MG/ML 5 ML PO UD SYG) PO ×3 (06:54→21:58)
[2017-04-24] MEDS: NIFEdipine (XL) 90 MG TAB PO (08:28)
[2017-04-24] MEDS: ALLOPURINOL 100 MG TAB PO (08:40)
[2017-04-24] MEDS: QUETIAPINE 100 MG TAB PO ×2 (08:40→20:39)
[2017-04-24] MEDS: FERROUS FUMARATE (SR) TAB PO (08:40)
[2017-04-24] MEDS: ALPRAZOLAM 0.25 MG TAB PO ×2 (08:40→21:57)
[2017-04-24] MEDS: DOCUSATE SODIUM 100 MG CAP PO ×2 (08:41→20:38)
[2017-04-24] MEDS: BACLOFEN 10 MG TAB PO (08:41)
[2017-04-24] MEDS: METOPROLOL 100 MG TAB PO ×2 (08:42→20:39)
[2017-04-24] MEDS: POLYETHYLENE GLYCOL 17 GM PACKET PO (08:43)
[2017-04-24] MEDS: HYDROCORTISONE 1% 26 GM RECT CR PR ×2 (08:52→20:49)
[2017-04-24] MEDS: HYDROCORTISONE 2.5% 28.35 GM OINT TOP ×2 (08:53→20:49)
[2017-04-24] MEDS: BUPROPION 75 MG TAB PO (09:09)
[2017-04-24] MEDS: HYDROmorphONE 2 MG TAB PO ×2 (09:10→20:46)
[2017-04-24] MEDS: MIRTAZAPINE 15 MG TAB PO (20:39)
[2017-04-24] MEDS: SENNA TAB PO (20:39)
[2017-04-24] MEDS: ROPINIROLE 0.25 MG TAB PO (20:45)
[2017-04-24] MEDS: AMITRIPTYLINE 50 MG TAB PO (21:57)
[2017-04-25] MEDS: PANTOPRAZOLE (EC) 40 MG TAB PO (06:05)
[2017-04-25] MEDS: METHADONE (1 MG/ML 5 ML PO UD SYG) PO ×3 (06:05→22:00)
[2017-04-25] MEDS: HYDROCORTISONE 1% 26 GM RECT CR PR ×2 (09:00→20:44)
[2017-04-25] MEDS: ALPRAZOLAM 0.25 MG TAB PO ×2 (09:33→20:39)
[2017-04-25] MEDS: NIFEdipine (XL) 90 MG TAB PO (09:33)
[2017-04-25] MEDS: DOCUSATE SODIUM 100 MG CAP PO ×2 (09:34→20:34)
[2017-04-25] MEDS: METOPROLOL 100 MG TAB PO ×2 (09:34→20:43)
[2017-04-25] MEDS: BUPROPION 75 MG TAB PO (09:34)
[2017-04-25] MEDS: HYDROCORTISONE 2.5% 28.35 GM OINT TOP ×2 (09:34→20:44)
[2017-04-25] MEDS: ALLOPURINOL 100 MG TAB PO (09:34)
[2017-04-25] MEDS: POLYETHYLENE GLYCOL 17 GM PACKET PO (09:34)
[2017-04-25] MEDS: FERROUS FUMARATE (SR) TAB PO (09:34)
[2017-04-25] MEDS: BACLOFEN 10 MG TAB PO (09:34)
[2017-04-25] MEDS: QUETIAPINE 100 MG TAB PO ×2 (09:35→20:37)
[2017-04-25] MEDS: HYDROmorphONE 2 MG TAB PO (09:35)
[2017-04-25] MEDS: AMITRIPTYLINE 50 MG TAB PO (20:34)
[2017-04-25] MEDS: MIRTAZAPINE 15 MG TAB PO (20:35)
[2017-04-25] MEDS: ROPINIROLE 0.25 MG TAB PO (20:43)
[2017-04-25] MEDS: SENNA TAB PO (20:44)
[2017-04-26] MEDS: HYDROmorphONE 2 MG TAB PO ×2 (03:23→09:07)
[2017-04-26] MEDS: PANTOPRAZOLE (EC) 40 MG TAB PO (06:16)
[2017-04-26] MEDS: METHADONE (1 MG/ML 5 ML PO UD SYG) PO ×3 (06:28→21:32)
[2017-04-26 06:47] LABS: ABNORMAL IP MESSAGE 1; HEMATOCRIT 27.8 % (37.0-47.0); HEMOGLOBIN 9.3 g/dl (12.0-16.0); MEAN CORPUSCULAR HEMOGLOBIN 30.3 pg (29.0-33.0); MEAN CORPUSCULAR HGB CONC 33.5 g/dl (32.0-37.0); MEAN CORPUSCULAR VOLUME 90.6 fl (82.0-101.0); MEAN PLATELET VOLUME 10.6 fl (7.4-10.4); NUCLEATED RED BLOOD CELLS% 0.2 /100WBC (0.0-0.0); PLATELET COUNT 264 10^3/UL (140-415); RED BLOOD COUNT 3.07 10^6/ul (4.20-5.40); RED CELL DISTRIBUTION WIDTH 18.8 % (11.5-14.5)
[2017-04-26 06:47] LABS: WHITE BLOOD COUNT 11.4 10^3/ul (4.8-10.8)
[2017-04-26 07:23] LABS: ADD MAN DIFF? YES; POSITIVE DIFF @See below
[2017-04-26] MEDS: METOPROLOL 100 MG TAB PO ×2 (09:00→21:31)
[2017-04-26] MEDS: NIFEdipine (XL) 90 MG TAB PO (09:00)
[2017-04-26] MEDS: ALPRAZOLAM 0.25 MG TAB PO (09:00)
[2017-04-26] MEDS: HYDROCORTISONE 2.5% 28.35 GM OINT TOP ×2 (09:05→21:00)
[2017-04-26] MEDS: POLYETHYLENE GLYCOL 17 GM PACKET PO (09:05)
[2017-04-26] MEDS: HYDROCORTISONE 1% 26 GM RECT CR PR ×2 (09:05→21:00)
[2017-04-26] MEDS: FERROUS FUMARATE (SR) TAB PO (09:06)
[2017-04-26] MEDS: QUETIAPINE 100 MG TAB PO ×2 (09:06→21:23)
[2017-04-26] MEDS: DOCUSATE SODIUM 100 MG CAP PO ×2 (09:06→21:22)
[2017-04-26] MEDS: BACLOFEN 10 MG TAB PO (09:06)
[2017-04-26] MEDS: BUPROPION 75 MG TAB PO (09:07)
[2017-04-26] MEDS: ALLOPURINOL 100 MG TAB PO (09:07)
[2017-04-26 09:59] LABS: ANISOCYTOSIS 1+ (0-0); BAND NEUTROPHILS #M 1.2 10^3/ul (0.0-0.6); BAND NEUTROPHILS % (M) 11 % (0-4); BURR CELLS 1+ (0-0); GIANT THROMBO% (M) 3 % (0-0); HYPOCHROMASIA 1+ (0-0); LYMPHOCYTES #M 1.1 10^3/ul (0.8-2.9); LYMPHOCYTES % (M) 10 % (15-51); METAMYELOCYTES #M 0.9 10^3/ul (0.0-0.0); METAMYELOCYTES %M 8 % (0-0); MICROCYTOSIS 1+ (0-0); MONOCYTE #M 1.1 10^3/ul (0.3-0.9); MONOCYTES % (M) 10 % (0-11); MYELOCYTES #M 0.5 10^3/ul (0.0-0.0); MYELOCYTES % (M) 5 % (0-0); PLATELET ESTIMATE NORMAL; POIKILOCYTOSIS 1+ (0-0); POLYCHROMASIA 1+ (0-0); PROMYELOCYTES #M 0.7 10^3/ul (0-0); PROMYELOCYTES % (M) 7 % (0-0); REACTIVE LYMPHOCYTES #M 0.1 10^3/ul (0.0-0.0); REACTIVE LYMPHOCYTES% (M) 1 % (0-0); SEG NEUT #M 5.6 10^3/ul (1.6-7.5); SEGMENTED NEUTROPHILS (M) % 48 % (39-77); SMUDGE%M 1 % (0-0)
[2017-04-26] MEDS: ALPRAZOLAM 1 MG TAB PO ×2 (11:05→21:23)
[2017-04-26] MEDS: ROPINIROLE 0.25 MG TAB PO (21:00)
[2017-04-26] MEDS: SENNA TAB PO (21:22)
[2017-04-26] MEDS: MIRTAZAPINE 15 MG TAB PO (21:25)
[2017-04-26] MEDS: AMITRIPTYLINE 50 MG TAB PO (21:26)
[2017-04-27] MEDS: METHADONE (1 MG/ML 5 ML PO UD SYG) PO ×3 (06:46→21:06)
[2017-04-27] MEDS: PANTOPRAZOLE (EC) 40 MG TAB PO (06:46)
[2017-04-27] MEDS: HYDROCORTISONE 2.5% 28.35 GM OINT TOP ×2 (09:00→21:00)
[2017-04-27] MEDS: HYDROCORTISONE 1% 26 GM RECT CR PR ×2 (09:00→21:00)
[2017-04-27] MEDS: BACLOFEN 10 MG TAB PO (10:35)
[2017-04-27] MEDS: FERROUS FUMARATE (SR) TAB PO (10:35)
[2017-04-27] MEDS: DOCUSATE SODIUM 100 MG CAP PO ×2 (10:36→20:52)
[2017-04-27] MEDS: METOPROLOL 100 MG TAB PO ×2 (10:37→21:07)
[2017-04-27] MEDS: ALLOPURINOL 100 MG TAB PO (10:38)
[2017-04-27] MEDS: QUETIAPINE 100 MG TAB PO ×2 (10:38→20:55)
[2017-04-27] MEDS: ALPRAZOLAM 1 MG TAB PO ×2 (10:39→20:55)
[2017-04-27] MEDS: BUPROPION 75 MG TAB PO (10:40)
[2017-04-27] MEDS: POLYETHYLENE GLYCOL 17 GM PACKET PO (10:40)
[2017-04-27] MEDS: NIFEdipine (XL) 90 MG TAB PO (13:58)
[2017-04-27] MEDS: AMITRIPTYLINE 50 MG TAB PO (20:52)
[2017-04-27] MEDS: MIRTAZAPINE 15 MG TAB PO (20:53)
[2017-04-27] MEDS: SENNA TAB PO (21:00)
[2017-04-27] MEDS: ROPINIROLE 0.25 MG TAB PO (21:00)
[2017-04-27] MEDS: DRONABINOL 2.5 MG CAP PO (21:02)
[2017-04-28] MEDS: METHADONE (1 MG/ML 5 ML PO UD SYG) PO ×3 (05:41→21:48)
[2017-04-28] MEDS: PANTOPRAZOLE (EC) 40 MG TAB PO (05:41)
[2017-04-28] MEDS: HYDROmorphONE 2 MG TAB PO ×2 (07:19→17:29)
[2017-04-28 07:39] LABS: ABNORMAL IP MESSAGE 1; HEMATOCRIT 29.5 % (37.0-47.0); HEMOGLOBIN 9.9 g/dl (12.0-16.0); MEAN CORPUSCULAR HEMOGLOBIN 30.5 pg (29.0-33.0); MEAN CORPUSCULAR HGB CONC 33.6 g/dl (32.0-37.0); MEAN CORPUSCULAR VOLUME 90.8 fl (82.0-101.0); NUCLEATED RED BLOOD CELLS% 0.2 /100WBC (0.0-0.0); PLATELET COUNT 442 10^3/UL (140-415); RED BLOOD COUNT 3.25 10^6/ul (4.20-5.40); RED CELL DISTRIBUTION WIDTH 18.9 % (11.5-14.5)
[2017-04-28 07:39] LABS: WHITE BLOOD COUNT 8.4 10^3/ul (4.8-10.8)
[2017-04-28 07:45] LABS: ADD MAN DIFF? YES; POSITIVE DIFF @See below
[2017-04-28] MEDS: LORAZEPAM 1 MG TAB PO (07:51)
[2017-04-28] MEDS: ALPRAZOLAM 1 MG TAB PO ×2 (07:51→21:46)
[2017-04-28] MEDS: DOCUSATE SODIUM 100 MG CAP PO ×2 (08:31→21:46)
[2017-04-28] MEDS: FERROUS FUMARATE (SR) TAB PO (08:31)
[2017-04-28] MEDS: DRONABINOL 2.5 MG CAP PO (08:32)
[2017-04-28] MEDS: BUPROPION 75 MG TAB PO (08:32)
[2017-04-28] MEDS: BACLOFEN 10 MG TAB PO (08:32)
[2017-04-28] MEDS: ALLOPURINOL 100 MG TAB PO (08:32)
[2017-04-28] MEDS: QUETIAPINE 100 MG TAB PO ×2 (08:32→21:47)
[2017-04-28] MEDS: POLYETHYLENE GLYCOL 17 GM PACKET PO (08:34)
[2017-04-28 08:54] LABS: PREALBUMIN 6.8 mg/dl (17.6-36.0)
[2017-04-28] MEDS: HYDROCORTISONE 2.5% 28.35 GM OINT TOP ×2 (09:00→21:00)
[2017-04-28] MEDS: HYDROCORTISONE 1% 26 GM RECT CR PR ×2 (09:00→21:00)
[2017-04-28 09:40] LABS: ANISOCYTOSIS 1+ (0-0); BAND NEUTROPHILS #M 0.5 10^3/ul (0.0-0.6); BAND NEUTROPHILS % (M) 6 % (0-4); BASOPHILS % (M) 1 % (0-2); GIANT THROMBO% (M) 3 % (0-0); LYMPHOCYTES #M 1.6 10^3/ul (0.8-2.9); LYMPHOCYTES % (M) 20 % (15-51); METAMYELOCYTES #M 0.2 10^3/ul (0.0-0.0); METAMYELOCYTES %M 3 % (0-0); MICROCYTOSIS 1+ (0-0); MONOCYTES % (M) 12 % (0-11); MYELOCYTES #M 0.4 10^3/ul (0.0-0.0); MYELOCYTES % (M) 5 % (0-0); PLATELET ESTIMATE NORMAL; POLYCHROMASIA 1+ (0-0); PROMYELOCYTES #M 0.1 10^3/ul (0-0); PROMYELOCYTES % (M) 2 % (0-0); SEG NEUT #M 4.3 10^3/ul (1.6-7.5); SEGMENTED NEUTROPHILS (M) % 51 % (39-77); SMUDGE%M 1 % (0-0)
[2017-04-28] MEDS: HYDROmorphONE 0.5 MG/0.5 ML SYG IV ×3 (10:55→19:19)
[2017-04-28] MEDS: METOPROLOL 100 MG TAB PO ×2 (12:11→21:47)
[2017-04-28] MEDS: NIFEdipine (XL) 90 MG TAB PO (12:12)
[2017-04-28] MEDS: ROPINIROLE 0.25 MG TAB PO (21:00)
[2017-04-28] MEDS: MEGESTROL (40 MG/ML) 10ML CUP PO (21:46)
[2017-04-28] MEDS: SENNA TAB PO (21:46)
[2017-04-28] MEDS: AMITRIPTYLINE 50 MG TAB PO (21:47)
[2017-04-28] MEDS: MIRTAZAPINE 15 MG TAB PO (21:49)
[2017-04-29] MEDS: METHADONE (1 MG/ML 5 ML PO UD SYG) PO ×2 (06:28→15:04)
[2017-04-29] MEDS: PANTOPRAZOLE (EC) 40 MG TAB PO (06:34)
[2017-04-29] MEDS: HYDROmorphONE 0.5 MG/0.5 ML SYG IV ×4 (08:11→18:37)
[2017-04-29] MEDS: NIFEdipine (XL) 90 MG TAB PO (09:00)
[2017-04-29] MEDS: METOPROLOL 100 MG TAB PO ×2 (09:00→20:56)
[2017-04-29] MEDS: HYDROCORTISONE 1% 26 GM RECT CR PR ×2 (09:00→20:56)
[2017-04-29] MEDS: BUPROPION 75 MG TAB PO (09:24)
[2017-04-29] MEDS: QUETIAPINE 100 MG TAB PO ×2 (09:24→20:55)
[2017-04-29] MEDS: HYDROmorphONE 2 MG TAB PO ×2 (09:43→13:13)
[2017-04-29] MEDS: ALLOPURINOL 100 MG TAB PO (09:45)
[2017-04-29] MEDS: BACLOFEN 10 MG TAB PO (09:45)
[2017-04-29] MEDS: MEGESTROL (40 MG/ML) 10ML CUP PO ×2 (09:45→20:55)
[2017-04-29] MEDS: DOCUSATE SODIUM 100 MG CAP PO ×2 (09:45→20:55)
[2017-04-29] MEDS: FERROUS FUMARATE (SR) TAB PO (09:45)
[2017-04-29] MEDS: ALPRAZOLAM 1 MG TAB PO ×2 (09:46→20:55)
[2017-04-29] MEDS: POLYETHYLENE GLYCOL 17 GM PACKET PO (10:26)
[2017-04-29] MEDS: HYDROCORTISONE 2.5% 28.35 GM OINT TOP ×2 (13:13→20:56)
[2017-04-29] MEDS: AMITRIPTYLINE 50 MG TAB PO (20:55)
[2017-04-29] MEDS: MIRTAZAPINE 15 MG TAB PO (20:55)
[2017-04-29] MEDS: ROPINIROLE 0.25 MG TAB PO (20:55)
[2017-04-29] MEDS: SENNA TAB PO (20:55)
[2017-04-30] MEDS: METHADONE (1 MG/ML 5 ML PO UD SYG) PO ×4 (00:03→21:46)
[2017-04-30] MEDS: PANTOPRAZOLE (EC) 40 MG TAB PO (06:35)
[2017-04-30] MEDS: HYDROCORTISONE 2.5% 28.35 GM OINT TOP ×2 (09:00→21:00)
[2017-04-30] MEDS: HYDROCORTISONE 1% 26 GM RECT CR PR ×2 (09:00→21:00)
[2017-04-30] MEDS: HYDROmorphONE 2 MG TAB PO (09:13)
[2017-04-30] MEDS: FERROUS FUMARATE (SR) TAB PO (09:14)
[2017-04-30] MEDS: MEGESTROL (40 MG/ML) 10ML CUP PO ×2 (09:14→21:39)
[2017-04-30] MEDS: DOCUSATE SODIUM 100 MG CAP PO ×2 (09:15→21:38)
[2017-04-30] MEDS: ALLOPURINOL 100 MG TAB PO (09:15)
[2017-04-30] MEDS: BACLOFEN 10 MG TAB PO (09:15)
[2017-04-30] MEDS: ALPRAZOLAM 1 MG TAB PO ×2 (09:15→21:39)
[2017-04-30] MEDS: METOPROLOL 100 MG TAB PO ×2 (09:16→21:00)
[2017-04-30] MEDS: POLYETHYLENE GLYCOL 17 GM PACKET PO (09:16)
[2017-04-30] MEDS: BUPROPION 75 MG TAB PO (09:17)
[2017-04-30] MEDS: NIFEdipine (XL) 90 MG TAB PO (09:17)
[2017-04-30] MEDS: QUETIAPINE 100 MG TAB PO ×2 (09:17→21:39)
[2017-04-30] MEDS: LORAZEPAM 1 MG TAB PO (18:09)
[2017-04-30] MEDS: SENNA TAB PO (21:38)
[2017-04-30] MEDS: AMITRIPTYLINE 50 MG TAB PO (21:38)
[2017-04-30] MEDS: ROPINIROLE 0.25 MG TAB PO (21:38)
[2017-04-30] MEDS: MIRTAZAPINE 15 MG TAB PO (21:39)
[2017-05-01] MEDS: PANTOPRAZOLE (EC) 40 MG TAB PO (06:23)
[2017-05-01] MEDS: METHADONE (1 MG/ML 5 ML PO UD SYG) PO ×3 (06:23→22:00)
[2017-05-01] MEDS: LORAZEPAM 1 MG TAB PO (06:27)
[2017-05-01] MEDS: HYDROCORTISONE 1% 26 GM RECT CR PR ×2 (09:00→21:00)
[2017-05-01] MEDS: HYDROCORTISONE 2.5% 28.35 GM OINT TOP ×2 (09:00→21:00)
[2017-05-01] MEDS: FERROUS FUMARATE (SR) TAB PO (09:32)
[2017-05-01] MEDS: QUETIAPINE 100 MG TAB PO ×2 (09:32→20:30)
[2017-05-01] MEDS: DOCUSATE SODIUM 100 MG CAP PO ×2 (09:32→20:30)
[2017-05-01] MEDS: BACLOFEN 10 MG TAB PO (09:32)
[2017-05-01] MEDS: MEGESTROL (40 MG/ML) 10ML CUP PO ×2 (09:34→20:30)
[2017-05-01] MEDS: METOPROLOL 100 MG TAB PO ×2 (09:34→20:32)
[2017-05-01] MEDS: POLYETHYLENE GLYCOL 17 GM PACKET PO (09:34)
[2017-05-01] MEDS: NIFEdipine (XL) 90 MG TAB PO (09:37)
[2017-05-01] MEDS: ALLOPURINOL 100 MG TAB PO (13:38)
[2017-05-01] MEDS: BUPROPION 75 MG TAB PO (13:38)
[2017-05-01] MEDS: ALPRAZOLAM 1 MG TAB PO ×2 (13:39→20:30)
[2017-05-01] MEDS: MIRTAZAPINE 15 MG TAB PO (20:30)
[2017-05-01] MEDS: AMITRIPTYLINE 50 MG TAB PO (20:30)
[2017-05-01] MEDS: ROPINIROLE 0.25 MG TAB PO (20:30)
[2017-05-01] MEDS: SENNA TAB PO (20:30)
[2017-05-02] MEDS: LORAZEPAM 1 MG TAB PO ×2 (03:08→14:02)
[2017-05-02] MEDS: METHADONE (1 MG/ML 5 ML PO UD SYG) PO ×3 (05:41→22:05)
[2017-05-02] MEDS: PANTOPRAZOLE (EC) 40 MG TAB PO (05:41)
[2017-05-02] MEDS: HYDROCORTISONE 2.5% 28.35 GM OINT TOP ×2 (09:00→21:00)
[2017-05-02] MEDS: HYDROCORTISONE 1% 26 GM RECT CR PR ×2 (09:00→21:00)
[2017-05-02] MEDS: NIFEdipine (XL) 90 MG TAB PO (09:00)
[2017-05-02] MEDS: METOPROLOL 100 MG TAB PO ×2 (09:00→21:02)
[2017-05-02] MEDS: MEGESTROL (40 MG/ML) 10ML CUP PO ×2 (09:06→20:57)
[2017-05-02] MEDS: DOCUSATE SODIUM 100 MG CAP PO ×2 (09:06→20:56)
[2017-05-02] MEDS: POLYETHYLENE GLYCOL 17 GM PACKET PO (09:06)
[2017-05-02] MEDS: FERROUS FUMARATE (SR) TAB PO (09:06)
[2017-05-02] MEDS: BUPROPION 75 MG TAB PO (09:06)
[2017-05-02] MEDS: QUETIAPINE 100 MG TAB PO ×2 (09:07→20:57)
[2017-05-02] MEDS: ALLOPURINOL 100 MG TAB PO (09:08)
[2017-05-02] MEDS: ALPRAZOLAM 1 MG TAB PO ×2 (09:08→20:57)
[2017-05-02] MEDS: BACLOFEN 10 MG TAB PO (09:09)
[2017-05-02] MEDS: HYDROmorphONE 2 MG TAB PO (09:12)
[2017-05-02] MEDS: ROPINIROLE 0.25 MG TAB PO (20:56)
[2017-05-02] MEDS: SENNA TAB PO (20:57)
[2017-05-02] MEDS: MIRTAZAPINE 15 MG TAB PO (20:58)
[2017-05-02] MEDS: AMITRIPTYLINE 50 MG TAB PO (21:01)
[2017-05-03] MEDS: METHADONE (1 MG/ML 5 ML PO UD SYG) PO ×3 (06:12→21:46)
[2017-05-03] MEDS: PANTOPRAZOLE (EC) 40 MG TAB PO (06:12)
[2017-05-03] MEDS: HYDROCORTISONE 2.5% 28.35 GM OINT TOP ×2 (09:00→21:00)
[2017-05-03] MEDS: POLYETHYLENE GLYCOL 17 GM PACKET PO (09:00)
[2017-05-03] MEDS: HYDROCORTISONE 1% 26 GM RECT CR PR ×2 (09:00→21:00)
[2017-05-03] MEDS: ALPRAZOLAM 1 MG TAB PO ×2 (09:07→20:36)
[2017-05-03] MEDS: BUPROPION 75 MG TAB PO (09:07)
[2017-05-03] MEDS: MEGESTROL (40 MG/ML) 10ML CUP PO ×2 (09:07→20:37)
[2017-05-03] MEDS: NIFEdipine (XL) 90 MG TAB PO (09:07)
[2017-05-03] MEDS: ALLOPURINOL 100 MG TAB PO (09:07)
[2017-05-03] MEDS: QUETIAPINE 100 MG TAB PO ×2 (09:07→20:35)
[2017-05-03] MEDS: DOCUSATE SODIUM 100 MG CAP PO ×2 (09:07→20:36)
[2017-05-03] MEDS: BACLOFEN 10 MG TAB PO (09:07)
[2017-05-03] MEDS: FERROUS FUMARATE (SR) TAB PO (09:08)
[2017-05-03] MEDS: METOPROLOL 100 MG TAB PO ×2 (09:08→20:37)
[2017-05-03] MEDS: SENNA TAB PO (20:35)
[2017-05-03] MEDS: ROPINIROLE 0.25 MG TAB PO (20:36)
[2017-05-03] MEDS: MIRTAZAPINE 15 MG TAB PO (20:41)
[2017-05-03] MEDS: AMITRIPTYLINE 50 MG TAB PO (21:02)
[2017-05-04] MEDS: PANTOPRAZOLE (EC) 40 MG TAB PO (06:35)
[2017-05-04] MEDS: METHADONE (1 MG/ML 5 ML PO UD SYG) PO ×3 (06:36→21:15)
[2017-05-04] MEDS: HYDROmorphONE 2 MG TAB PO ×2 (06:54→19:29)
[2017-05-04 07:50] LABS: HEMATOCRIT 28.8 % (37.0-47.0); HEMOGLOBIN 9.6 g/dl (12.0-16.0); MEAN CORPUSCULAR HEMOGLOBIN 30.3 pg (29.0-33.0); MEAN CORPUSCULAR HGB CONC 33.3 g/dl (32.0-37.0); MEAN CORPUSCULAR VOLUME 90.9 fl (82.0-101.0); MEAN PLATELET VOLUME 9.1 fl (7.4-10.4); NUCLEATED RED BLOOD CELLS% 0.3 /100WBC (0.0-0.0); PLATELET COUNT 744 10^3/UL (140-415); RED BLOOD COUNT 3.17 10^6/ul (4.20-5.40); RED CELL DISTRIBUTION WIDTH 19.8 % (11.5-14.5)
[2017-05-04 07:50] LABS: WHITE BLOOD COUNT 6.4 10^3/ul (4.8-10.8)
[2017-05-04 08:03] LABS: ADD MAN DIFF? YES
[2017-05-04 08:21] LABS: ANION GAP 14 (8-16); BLOOD UREA NITROGEN 14 mg/dl (7-20); CALCIUM 8.8 mg/dl (8.4-10.2); CARBON DIOXIDE 21 mmol/L (21-31); CHLORIDE 112 mmol/L (97-110); CREATININE 0.54 mg/dl (0.44-1.00); GLUCOSE 87 mg/dl (70-220); POTASSIUM 4.1 mmol/L (3.5-5.1); SODIUM 143 mmol/L (135-144)
[2017-05-04] MEDS: FERROUS FUMARATE (SR) TAB PO (08:59)
[2017-05-04] MEDS: ALLOPURINOL 100 MG TAB PO (08:59)
[2017-05-04] MEDS: QUETIAPINE 100 MG TAB PO ×2 (08:59→21:16)
[2017-05-04] MEDS: HYDROCORTISONE 1% 26 GM RECT CR PR ×2 (09:00→21:00)
[2017-05-04] MEDS: ALPRAZOLAM 1 MG TAB PO ×2 (09:00→21:17)
[2017-05-04] MEDS: HYDROCORTISONE 2.5% 28.35 GM OINT TOP ×2 (09:00→21:00)
[2017-05-04] MEDS: BUPROPION 75 MG TAB PO (09:00)
[2017-05-04] MEDS: BACLOFEN 10 MG TAB PO (09:00)
[2017-05-04] MEDS: NIFEdipine (XL) 90 MG TAB PO (09:01)
[2017-05-04] MEDS: POLYETHYLENE GLYCOL 17 GM PACKET PO (09:01)
[2017-05-04] MEDS: DOCUSATE SODIUM 100 MG CAP PO ×2 (09:02→21:00)
[2017-05-04] MEDS: METOPROLOL 100 MG TAB PO ×2 (09:02→21:22)
[2017-05-04] MEDS: MEGESTROL (40 MG/ML) 10ML CUP PO ×2 (09:03→21:15)
[2017-05-04 09:30] LABS: ANISOCYTOSIS 1+ (0-0); BAND NEUTROPHILS #M 0.3 10^3/ul (0.0-0.6); BAND NEUTROPHILS % (M) 5 % (0-4); GIANT THROMBO% (M) 5 % (0-0); LYMPHOCYTES #M 1.5 10^3/ul (0.8-2.9); LYMPHOCYTES % (M) 24 % (15-51); MONOCYTE #M 0.8 10^3/ul (0.3-0.9); MONOCYTES % (M) 13 % (0-11); PLATELET ESTIMATE INCREASED; PLATELET MORPHOLOGY COMMENT @See below; POLYCHROMASIA 2+ (0-0); REACTIVE LYMPHOCYTES% (M) 1 % (0-0); SEG NEUT #M 3.7 10^3/ul (1.6-7.5); SEGMENTED NEUTROPHILS (M) % 57 % (39-77); SMUDGE%M 8 % (0-0)
[2017-05-04] MEDS: SENNA TAB PO (21:00)
[2017-05-04] MEDS: ROPINIROLE 0.25 MG TAB PO (21:16)
[2017-05-04] MEDS: AMITRIPTYLINE 50 MG TAB PO (21:16)
[2017-05-04] MEDS: MIRTAZAPINE 15 MG TAB PO (21:16)
[2017-05-05] MEDS: METHADONE (1 MG/ML 5 ML PO UD SYG) PO ×3 (06:15→21:37)
[2017-05-05] MEDS: PANTOPRAZOLE (EC) 40 MG TAB PO (06:15)
[2017-05-05 07:15] LABS: WHITE BLOOD COUNT 6.3 10^3/ul (4.8-10.8)
[2017-05-05 07:15] LABS: HEMATOCRIT 27.7 % (37.0-47.0); HEMOGLOBIN 9.1 g/dl (12.0-16.0); MEAN CORPUSCULAR HEMOGLOBIN 30.2 pg (29.0-33.0); MEAN CORPUSCULAR HGB CONC 32.9 g/dl (32.0-37.0); MEAN PLATELET VOLUME 8.8 fl (7.4-10.4); PLATELET COUNT 685 10^3/UL (140-415); RED BLOOD COUNT 3.01 10^6/ul (4.20-5.40); RED CELL DISTRIBUTION WIDTH 20.6 % (11.5-14.5)
[2017-05-05 07:22] LABS: ADD MAN DIFF? YES
[2017-05-05 07:56] LABS: ALANINE AMINOTRANSFERASE 20 IU/L (13-69); ALBUMIN 3.3 g/dl (3.3-4.9); ALKALINE PHOSPHATASE 177 IU/L (42-121); ANION GAP 14 (8-16); ASPARTATE AMINO TRANSFERASE 19 IU/L (15-46); BLOOD UREA NITROGEN 14 mg/dl (7-20); CALCIUM 8.6 mg/dl (8.4-10.2); CARBON DIOXIDE 23 mmol/L (21-31); CHLORIDE 110 mmol/L (97-110); CREATININE 0.53 mg/dl (0.44-1.00); GLUCOSE 84 mg/dl (70-220); POTASSIUM 4.2 mmol/L (3.5-5.1); SODIUM 143 mmol/L (135-144); TOTAL PROTEIN 6.3 g/dl (6.1-8.1)
[2017-05-05] MEDS: FERROUS FUMARATE (SR) TAB PO (08:55)
[2017-05-05] MEDS: BACLOFEN 10 MG TAB PO (08:55)
[2017-05-05] MEDS: DOCUSATE SODIUM 100 MG CAP PO ×2 (08:55→21:38)
[2017-05-05] MEDS: NIFEdipine (XL) 90 MG TAB PO (08:57)
[2017-05-05] MEDS: POLYETHYLENE GLYCOL 17 GM PACKET PO (08:57)
[2017-05-05] MEDS: MEGESTROL (40 MG/ML) 10ML CUP PO ×2 (08:57→21:37)
[2017-05-05] MEDS: METOPROLOL 100 MG TAB PO ×2 (08:57→21:39)
[2017-05-05 08:58] LABS: ANISOCYTOSIS 1+ (0-0); BAND NEUTROPHILS % (M) 1 % (0-4); HYPOCHROMASIA 1+ (0-0); LYMPHOCYTES #M 1.2 10^3/ul (0.8-2.9); LYMPHOCYTES % (M) 20 % (15-51); MONOCYTES % (M) 16 % (0-11); PLATELET ESTIMATE INCREASED; POIKILOCYTOSIS 1+ (0-0); POLYCHROMASIA 1+ (0-0); SEGMENTED NEUTROPHILS (M) % 63 % (39-77); SMUDGE%M 1 % (0-0)
[2017-05-05] MEDS: ALLOPURINOL 100 MG TAB PO (08:59)
[2017-05-05] MEDS: HYDROCORTISONE 1% 26 GM RECT CR PR ×2 (09:00→21:00)
[2017-05-05] MEDS: HYDROCORTISONE 2.5% 28.35 GM OINT TOP ×2 (09:00→21:00)
[2017-05-05] MEDS: ALPRAZOLAM 1 MG TAB PO ×2 (14:39→21:38)
[2017-05-05] MEDS: BUPROPION 75 MG TAB PO (14:40)
[2017-05-05] MEDS: QUETIAPINE 100 MG TAB PO ×2 (14:40→21:38)
[2017-05-05] MEDS: AMITRIPTYLINE 50 MG TAB PO ×2 (21:00→21:38)
[2017-05-05] MEDS: SENNA TAB PO (21:00)
[2017-05-05] MEDS: MIRTAZAPINE 15 MG TAB PO (21:38)
[2017-05-05] MEDS: ROPINIROLE 0.25 MG TAB PO (21:39)
[2017-05-06] MEDS: PANTOPRAZOLE (EC) 40 MG TAB PO (06:20)
[2017-05-06] MEDS: METHADONE (1 MG/ML 5 ML PO UD SYG) PO (06:20)
[2017-05-06] MEDS: METOPROLOL 100 MG TAB PO (08:25)
[2017-05-06] MEDS: BACLOFEN 10 MG TAB PO (08:25)
[2017-05-06] MEDS: ALLOPURINOL 100 MG TAB PO (08:25)
[2017-05-06] MEDS: MEGESTROL (40 MG/ML) 10ML CUP PO (08:25)
[2017-05-06] MEDS: NIFEdipine (XL) 90 MG TAB PO (08:26)
[2017-05-06] MEDS: QUETIAPINE 100 MG TAB PO (08:26)
[2017-05-06] MEDS: DOCUSATE SODIUM 100 MG CAP PO (08:26)
[2017-05-06] MEDS: BUPROPION 75 MG TAB PO (08:26)
[2017-05-06] MEDS: POLYETHYLENE GLYCOL 17 GM PACKET PO (08:26)
[2017-05-06] MEDS: FERROUS FUMARATE (SR) TAB PO (08:26)
[2017-05-06] MEDS: HYDROCORTISONE 1% 26 GM RECT CR PR (08:27)
[2017-05-06] MEDS: HYDROCORTISONE 2.5% 28.35 GM OINT TOP (08:28)
[2017-05-06] MEDS: ALPRAZOLAM 1 MG TAB PO (09:55)
== END 2017-05-06 12:00 | disposition home health service (06) | DRG 92 ==
LOC: VRC 04-22 15:37
PROC: F07Z5ZZ Bed Mobility Treatment (ICD-10-PCS; principal; 2017-04-21)
PROC: F08Z2ZZ Grooming/Personal Hygiene Treatment (ICD-10-PCS; 2017-04-21)
DX: G95.89 Other specified diseases of spinal cord (principal); C78.00 Secondary malignant neoplasm of unspecified lung; D61.818 Other pancytopenia; N17.9 Acute kidney failure, unspecified; R78.81 Bacteremia; N39.0 Urinary tract infection, site not specified; F31.89 Other bipolar disorder; M84.48XD Pathological fracture, other site, subsequent encounter for fracture with routine healing; R52 Pain, unspecified; I10 Essential (primary) hypertension; F31.9 Bipolar disorder, unspecified; E78.00 Pure hypercholesterolemia, unspecified; F06.8 Other specified mental disorders due to known physiological condition; K64.9 Unspecified hemorrhoids; D64.9 Anemia, unspecified
CPT/HCPCS: 80048; 80053; 81001; 84134; 85025; 87081; 87086; 92610; 97110; 97112; 97116; 97150; 97163; 97166; 97530; 97535

== ENCOUNTER 2017-05-13 07:58 | Inpatient (IN) | payer MEDICARE, OTHER ==
[2017-05-13] MEDS: SOD CHLORIDE 0.9% 1,000 ML IV (08:54)
[2017-05-13 09:16] LABS: ADD MAN DIFF? NO
[2017-05-13 09:19] LABS: BASOPHILS % 0.2 % (0.0-2.0); EOSINOPHILS # 0.1 10^3/ul (0.0-0.5); EOSINOPHILS % 1.4 % (0.0-7.0); HEMATOCRIT 32.4 % (37.0-47.0); HEMOGLOBIN 10.9 g/dl (12.0-16.0); LYMPHOCYTES # 1.1 10^3/ul (0.8-2.9); LYMPHOCYTES % 18.9 % (15.0-51.0); MEAN CORPUSCULAR HEMOGLOBIN 31.5 pg (29.0-33.0); MEAN CORPUSCULAR HGB CONC 33.6 g/dl (32.0-37.0); MEAN CORPUSCULAR VOLUME 93.6 fl (82.0-101.0); MEAN PLATELET VOLUME 9.1 fl (7.4-10.4); MONOCYTE # 0.9 10^3/ul (0.3-0.9); NEUTROPHIL # 3.8 10^3/ul (1.6-7.5); NEUTROPHILS % 64.2 % (39.0-77.0); PLATELET COUNT 523 10^3/UL (140-415); RED BLOOD COUNT 3.46 10^6/ul (4.20-5.40); RED CELL DISTRIBUTION WIDTH 20.2 % (11.5-14.5)
[2017-05-13 09:19] LABS: WHITE BLOOD COUNT 5.9 10^3/ul (4.8-10.8)
[2017-05-13 09:25] LABS: ALANINE AMINOTRANSFERASE 21 IU/L (13-69); ALBUMIN 3.8 g/dl (3.3-4.9); ALBUMIN/GLOBULIN RATIO 1.08; ALKALINE PHOSPHATASE 150 IU/L (42-121); ANION GAP 18 (8-16); ASPARTATE AMINO TRANSFERASE 21 IU/L (15-46); BILIRUBIN,INDIRECT 0.1 mg/dl (0-1.1); BILIRUBIN,TOTAL 0.1 mg/dl (0.2-1.3); BLOOD UREA NITROGEN 9 mg/dl (7-20); CALCIUM 8.8 mg/dl (8.4-10.2); CARBON DIOXIDE 20 mmol/L (21-31); CHLORIDE 111 mmol/L (97-110); CREATINE KINASE 53 IU/L (23-200); CREATININE 0.57 mg/dl (0.44-1.00); GLUCOSE 103 mg/dl (70-220); POTASSIUM 3.9 mmol/L (3.5-5.1); SODIUM 145 mmol/L (135-144); TOTAL PROTEIN 7.3 g/dl (6.1-8.1)
[2017-05-13 09:26] LABS: PROTIME 13.3 Sec (11.9-14.9)
[2017-05-13 09:37] LABS: B-TYPE NATRIURETIC PEPTIDE 366 PG/ML (0-125); CK INDEX 0.4
[2017-05-13 09:38] LABS: CK-MB < 0.22 ng/ml (0.0-2.4); TROPONIN-I < 0.012 ng/ml (0.00-0.12)
[2017-05-13] MEDS ORDERED: ONDANSETRON 4 MG INJ IV (11:30)
[2017-05-13] MEDS ORDERED: ACETAMINOPHEN 325 MG TAB PO (11:30)
[2017-05-13] MEDS: HYDROmorphONE 2 MG TAB PO ×2 (14:54→23:34)
[2017-05-13] MEDS: INFLUENZA VIRUS VACCINE 0.5 ML SYG IM* (16:34)
[2017-05-13] MEDS ORDERED: ALPRAZOLAM 1 MG TAB PO (18:00)
[2017-05-13] MEDS: MEGESTROL (40 MG/ML) 10ML CUP PO (19:19)
[2017-05-13] MEDS ORDERED: METHADONE 5 MG TAB PO (21:00)
[2017-05-13] MEDS: [UNRECOGNIZED DRUG - REMARK] XX (21:00)
[2017-05-13] MEDS: AMITRIPTYLINE 50 MG TAB PO (21:24)
[2017-05-13] MEDS: MIRTAZAPINE 15 MG TAB PO (21:27)
[2017-05-13] MEDS: METOPROLOL 100 MG TAB PO (21:27)
[2017-05-13] MEDS: QUETIAPINE 100 MG TAB PO (21:28)
[2017-05-13] MEDS: METHADONE (1 MG/ML 5 ML PO UD SYG) PO (21:29)
[2017-05-13 23:30] LABS: ADD UMIC NO; UR ASCORBIC ACID NEGATIVE (NEGATIVE); UR BILIRUBIN (Dip) NEGATIVE (NEGATIVE); UR BLOOD (Dip) NEGATIVE (NEGATIVE); UR CLARITY CLEAR (CLEAR); UR COLOR YELLOW (YELLOW); UR GLUCOSE (Dip) NEGATIVE (NEGATIVE); UR KETONES (Dip) NEGATIVE (NEGATIVE); UR LEUKOCYTE ESTERASE (Dip) NEGATIVE Leu/ul (NEGATIVE); UR NITRITE (Dip) NEGATIVE (NEGATIVE); UR SPECIFIC GRAVITY (Dip) 1.012 (1.003-1.030); UR TOTAL PROTEIN (Dip) NEGATIVE (NEGATIVE); UR UROBILINOGEN (Dip) NEGATIVE (NEGATIVE)
[2017-05-14 06:07] LABS: ADD MAN DIFF? NO
[2017-05-14 06:23] LABS: WHITE BLOOD COUNT 4.3 10^3/ul (4.8-10.8)
[2017-05-14 06:23] LABS: BASOPHILS % 0.2 % (0.0-2.0); EOSINOPHILS # 0.1 10^3/ul (0.0-0.5); EOSINOPHILS % 2.6 % (0.0-7.0); HEMATOCRIT 30.9 % (37.0-47.0); HEMOGLOBIN 10.2 g/dl (12.0-16.0); LYMPHOCYTES # 0.8 10^3/ul (0.8-2.9); LYMPHOCYTES % 17.9 % (15.0-51.0); MEAN CORPUSCULAR HEMOGLOBIN 30.9 pg (29.0-33.0); MEAN CORPUSCULAR VOLUME 93.6 fl (82.0-101.0); MEAN PLATELET VOLUME 8.5 fl (7.4-10.4); MONOCYTE # 0.6 10^3/ul (0.3-0.9); MONOCYTES % 14.7 % (0.0-11.0); NEUTROPHIL # 2.8 10^3/ul (1.6-7.5); NEUTROPHILS % 64.4 % (39.0-77.0); PLATELET COUNT 480 10^3/UL (140-415); RED CELL DISTRIBUTION WIDTH 19.8 % (11.5-14.5)
[2017-05-14 06:33] LABS: ALANINE AMINOTRANSFERASE 24 IU/L (13-69); ALBUMIN 3.3 g/dl (3.3-4.9); ALBUMIN/GLOBULIN RATIO 0.97; ALKALINE PHOSPHATASE 129 IU/L (42-121); ANION GAP 16 (8-16); ASPARTATE AMINO TRANSFERASE 18 IU/L (15-46); BILIRUBIN,INDIRECT 0.1 mg/dl (0-1.1); BILIRUBIN,TOTAL 0.1 mg/dl (0.2-1.3); BLOOD UREA NITROGEN 8 mg/dl (7-20); CALCIUM 8.5 mg/dl (8.4-10.2); CARBON DIOXIDE 20 mmol/L (21-31); CHLORIDE 111 mmol/L (97-110); CREATININE 0.54 mg/dl (0.44-1.00); GLUCOSE 107 mg/dl (70-220); POTASSIUM 4.3 mmol/L (3.5-5.1); SODIUM 143 mmol/L (135-144); TOTAL PROTEIN 6.7 g/dl (6.1-8.1)
[2017-05-14] MEDS: PANTOPRAZOLE (EC) 40 MG TAB PO (07:10)
[2017-05-14] MEDS: [UNRECOGNIZED DRUG - REMARK] XX ×2 (09:00→21:00)
[2017-05-14] MEDS: METHADONE (1 MG/ML 5 ML PO UD SYG) PO ×2 (09:41→22:27)
[2017-05-14] MEDS: MEGESTROL (40 MG/ML) 10ML CUP PO ×2 (09:41→17:26)
[2017-05-14] MEDS: BACLOFEN 10 MG TAB PO (09:42)
[2017-05-14] MEDS: BUPROPION 75 MG TAB PO (09:42)
[2017-05-14] MEDS: QUETIAPINE 100 MG TAB PO ×2 (09:42→22:27)
[2017-05-14] MEDS: DOCUSATE SODIUM 250 MG CAP PO (09:42)
[2017-05-14] MEDS: ALPRAZOLAM 0.25 MG TAB PO (09:42)
[2017-05-14] MEDS: NIFEdipine (XL) 90 MG TAB PO (09:43)
[2017-05-14] MEDS: HYDROmorphONE 2 MG TAB PO (09:43)
[2017-05-14] MEDS: METOPROLOL 100 MG TAB PO ×2 (09:43→21:00)
[2017-05-14] MEDS: MIRTAZAPINE 15 MG TAB PO (22:26)
[2017-05-14] MEDS: AMITRIPTYLINE 50 MG TAB PO (22:26)
[2017-05-15] MEDS: PANTOPRAZOLE (EC) 40 MG TAB PO (06:42)
[2017-05-15] MEDS: MEGESTROL (40 MG/ML) 10ML CUP PO ×2 (08:00→17:46)
[2017-05-15] MEDS: [UNRECOGNIZED DRUG - REMARK] XX ×2 (09:00→21:00)
[2017-05-15] MEDS: HYDROmorphONE 2 MG TAB PO ×2 (09:13→21:55)
[2017-05-15] MEDS: METHADONE (1 MG/ML 5 ML PO UD SYG) PO ×2 (09:14→21:31)
[2017-05-15] MEDS: DOCUSATE SODIUM 250 MG CAP PO (09:14)
[2017-05-15] MEDS: QUETIAPINE 100 MG TAB PO ×2 (09:14→21:32)
[2017-05-15] MEDS: BACLOFEN 10 MG TAB PO (09:15)
[2017-05-15] MEDS: NIFEdipine (XL) 90 MG TAB PO (09:15)
[2017-05-15] MEDS: BUPROPION 75 MG TAB PO (09:15)
[2017-05-15] MEDS: METOPROLOL 100 MG TAB PO ×2 (09:16→21:32)
[2017-05-15] MEDS: ALPRAZOLAM 0.25 MG TAB PO (09:19)
[2017-05-15] MEDS ORDERED: VANCOMYCIN IV PER PHARMACY XX (15:30)
[2017-05-15] MEDS: VANCOMYCIN 1 GM 250 ML IVPB (17:47)
[2017-05-15] MEDS: MIRTAZAPINE 15 MG TAB PO (21:32)
[2017-05-15] MEDS: AMITRIPTYLINE 50 MG TAB PO (21:33)
[2017-05-15] MEDS: ALPRAZOLAM 1 MG TAB PO (21:54)
[2017-05-16] MEDS: ENOXAPARIN 60 MG/0.6 ML SYG SC (01:57)
[2017-05-16] MEDS: PANTOPRAZOLE (EC) 40 MG TAB PO (06:24)
[2017-05-16] MEDS: MEGESTROL (40 MG/ML) 10ML CUP PO ×2 (08:27→17:10)
[2017-05-16] MEDS: BACLOFEN 10 MG TAB PO (08:28)
[2017-05-16] MEDS: DOCUSATE SODIUM 250 MG CAP PO (08:28)
[2017-05-16] MEDS: METOPROLOL 100 MG TAB PO ×2 (08:29→21:05)
[2017-05-16 08:31] LABS: ADD MAN DIFF? NO
[2017-05-16] MEDS: BUPROPION 75 MG TAB PO (08:31)
[2017-05-16] MEDS: METHADONE (1 MG/ML 5 ML PO UD SYG) PO ×2 (08:31→21:06)
[2017-05-16] MEDS: NIFEdipine (XL) 90 MG TAB PO (08:31)
[2017-05-16] MEDS: QUETIAPINE 100 MG TAB PO ×2 (08:31→20:58)
[2017-05-16 08:34] LABS: WHITE BLOOD COUNT 4.9 10^3/ul (4.8-10.8)
[2017-05-16 08:34] LABS: BASOPHILS % 0.2 % (0.0-2.0); EOSINOPHILS # 0.1 10^3/ul (0.0-0.5); EOSINOPHILS % 2.9 % (0.0-7.0); HEMATOCRIT 32.1 % (37.0-47.0); HEMOGLOBIN 10.4 g/dl (12.0-16.0); LYMPHOCYTES # 1.2 10^3/ul (0.8-2.9); LYMPHOCYTES % 23.5 % (15.0-51.0); MEAN CORPUSCULAR HEMOGLOBIN 30.1 pg (29.0-33.0); MEAN CORPUSCULAR HGB CONC 32.4 g/dl (32.0-37.0); MEAN PLATELET VOLUME 8.6 fl (7.4-10.4); MONOCYTE # 0.5 10^3/ul (0.3-0.9); MONOCYTES % 10.2 % (0.0-11.0); NEUTROPHIL # 3.1 10^3/ul (1.6-7.5); NEUTROPHILS % 62.8 % (39.0-77.0); PLATELET COUNT 471 10^3/UL (140-415); RED BLOOD COUNT 3.45 10^6/ul (4.20-5.40); RED CELL DISTRIBUTION WIDTH 19.7 % (11.5-14.5)
[2017-05-16] MEDS: [UNRECOGNIZED DRUG - REMARK] XX ×2 (08:35→21:00)
[2017-05-16 08:57] LABS: ALANINE AMINOTRANSFERASE 23 IU/L (13-69); ALBUMIN 3.8 g/dl (3.3-4.9); ALBUMIN/GLOBULIN RATIO 1.15; ALKALINE PHOSPHATASE 129 IU/L (42-121); ANION GAP 16 (8-16); ASPARTATE AMINO TRANSFERASE 17 IU/L (15-46); BLOOD UREA NITROGEN 11 mg/dl (7-20); CALCIUM 9.3 mg/dl (8.4-10.2); CARBON DIOXIDE 20 mmol/L (21-31); CHLORIDE 114 mmol/L (97-110); CREATININE 0.61 mg/dl (0.44-1.00); GLUCOSE 103 mg/dl (70-220); POTASSIUM 4.3 mmol/L (3.5-5.1); SODIUM 146 mmol/L (135-144); TOTAL PROTEIN 7.1 g/dl (6.1-8.1)
[2017-05-16] MEDS: VANCOMYCIN 500MG/NS (PMX) 100 ML IVPB (11:28)
[2017-05-16] MEDS ORDERED: VANCOMYCIN 750 MG in DEXTROSE 5% 150 ML IVPB (17:00)
[2017-05-16] MEDS: ALPRAZOLAM 1 MG TAB PO (17:58)
[2017-05-16] MEDS: AMITRIPTYLINE 50 MG TAB PO (20:57)
[2017-05-16] MEDS: MIRTAZAPINE 15 MG TAB PO (20:58)
[2017-05-16] MEDS: CIPROFLOXACIN 200 MG/D5W IVPB 100 ML IVPB (22:27)
[2017-05-16] MEDS: ZOLPIDEM 5 MG TAB PO (22:37)
[2017-05-17] MEDS: ENOXAPARIN 60 MG/0.6 ML SYG SC ×2 (00:58→23:30)
[2017-05-17] MEDS: PANTOPRAZOLE (EC) 40 MG TAB PO (06:36)
[2017-05-17] MEDS: CIPROFLOXACIN 200 MG/D5W IVPB 100 ML IVPB ×2 (08:12→21:21)
[2017-05-17] MEDS: MEGESTROL (40 MG/ML) 10ML CUP PO ×2 (08:13→17:39)
[2017-05-17] MEDS: BUPROPION 75 MG TAB PO (08:14)
[2017-05-17] MEDS: ALPRAZOLAM 1 MG TAB PO ×2 (08:14→17:46)
[2017-05-17] MEDS: METHADONE (1 MG/ML 5 ML PO UD SYG) PO ×2 (08:14→21:23)
[2017-05-17] MEDS: METOPROLOL 100 MG TAB PO ×2 (08:15→21:22)
[2017-05-17] MEDS: DOCUSATE SODIUM 250 MG CAP PO (08:15)
[2017-05-17] MEDS: NIFEdipine (XL) 90 MG TAB PO (08:15)
[2017-05-17] MEDS: BACLOFEN 10 MG TAB PO (08:16)
[2017-05-17] MEDS: QUETIAPINE 100 MG TAB PO ×2 (08:16→21:22)
[2017-05-17] MEDS: [UNRECOGNIZED DRUG - REMARK] XX ×2 (09:00→21:00)
[2017-05-17 11:29] LABS: VANCOMYCIN,TROUGH < 5.0 ug/ml (10.0-20.0)
[2017-05-17 19:38] LABS: ALANINE AMINOTRANSFERASE 22 IU/L (13-69); ALBUMIN 3.8 g/dl (3.3-4.9); ALBUMIN/GLOBULIN RATIO 1.22; ALKALINE PHOSPHATASE 124 IU/L (42-121); ANION GAP 18 (8-16); ASPARTATE AMINO TRANSFERASE 13 IU/L (15-46); BLOOD UREA NITROGEN 15 mg/dl (7-20); CALCIUM 9.2 mg/dl (8.4-10.2); CARBON DIOXIDE 22 mmol/L (21-31); CHLORIDE 112 mmol/L (97-110); CREATININE 0.73 mg/dl (0.44-1.00); GLUCOSE 120 mg/dl (70-220); POTASSIUM 4.2 mmol/L (3.5-5.1); SODIUM 148 mmol/L (135-144); TOTAL PROTEIN 6.9 g/dl (6.1-8.1)
[2017-05-17] MEDS: MIRTAZAPINE 15 MG TAB PO (21:22)
[2017-05-17] MEDS: AMITRIPTYLINE 50 MG TAB PO (21:22)
[2017-05-18] MEDS: ZOLPIDEM 5 MG TAB PO (03:16)
[2017-05-18] MEDS: PANTOPRAZOLE (EC) 40 MG TAB PO (06:26)
[2017-05-18] MEDS: BACLOFEN 10 MG TAB PO (08:53)
[2017-05-18] MEDS: QUETIAPINE 100 MG TAB PO ×2 (08:55→20:30)
[2017-05-18] MEDS: DOCUSATE SODIUM 250 MG CAP PO (08:55)
[2017-05-18] MEDS: METOPROLOL 100 MG TAB PO ×2 (08:56→20:30)
[2017-05-18] MEDS: MEGESTROL (40 MG/ML) 10ML CUP PO ×2 (08:57→18:03)
[2017-05-18] MEDS: METHADONE (1 MG/ML 5 ML PO UD SYG) PO ×2 (08:57→20:31)
[2017-05-18] MEDS: NIFEdipine (XL) 90 MG TAB PO (08:58)
[2017-05-18] MEDS: CIPROFLOXACIN 200 MG/D5W IVPB 100 ML IVPB (08:58)
[2017-05-18] MEDS: BUPROPION 75 MG TAB PO (08:59)
[2017-05-18] MEDS: [UNRECOGNIZED DRUG - REMARK] XX ×2 (09:00→21:00)
[2017-05-18 09:01] LABS: ADD MAN DIFF? NO
[2017-05-18 09:11] LABS: WHITE BLOOD COUNT 6.2 10^3/ul (4.8-10.8)
[2017-05-18 09:11] LABS: BASOPHILS % 0.2 % (0.0-2.0); EOSINOPHILS # 0.2 10^3/ul (0.0-0.5); EOSINOPHILS % 2.4 % (0.0-7.0); HEMATOCRIT 33.7 % (37.0-47.0); HEMOGLOBIN 11.3 g/dl (12.0-16.0); LYMPHOCYTES # 1.7 10^3/ul (0.8-2.9); LYMPHOCYTES % 27.9 % (15.0-51.0); MEAN CORPUSCULAR HEMOGLOBIN 31.1 pg (29.0-33.0); MEAN CORPUSCULAR HGB CONC 33.5 g/dl (32.0-37.0); MEAN CORPUSCULAR VOLUME 92.8 fl (82.0-101.0); MEAN PLATELET VOLUME 8.7 fl (7.4-10.4); MONOCYTE # 0.6 10^3/ul (0.3-0.9); MONOCYTES % 9.7 % (0.0-11.0); NEUTROPHIL # 3.7 10^3/ul (1.6-7.5); NEUTROPHILS % 59.5 % (39.0-77.0); PLATELET COUNT 449 10^3/UL (140-415); RED BLOOD COUNT 3.63 10^6/ul (4.20-5.40); RED CELL DISTRIBUTION WIDTH 19.7 % (11.5-14.5)
[2017-05-18 09:35] LABS: ANION GAP 16 (8-16); BLOOD UREA NITROGEN 14 mg/dl (7-20); CALCIUM 9.5 mg/dl (8.4-10.2); CARBON DIOXIDE 22 mmol/L (21-31); CHLORIDE 111 mmol/L (97-110); CREATININE 0.63 mg/dl (0.44-1.00); GLUCOSE 87 mg/dl (70-220); POTASSIUM 4.2 mmol/L (3.5-5.1); SODIUM 145 mmol/L (135-144)
[2017-05-18] MEDS: HYDROmorphONE 2 MG TAB PO ×2 (10:28→17:22)
[2017-05-18] MEDS: LIDOCAINE 1% (MPF) 5 ML VIAL SC (11:20)
[2017-05-18] MEDS: ALPRAZOLAM 1 MG TAB PO (17:26)
[2017-05-18] MEDS: CIPROFLOXACIN 250 MG TAB PO (18:05)
[2017-05-18] MEDS: MIRTAZAPINE 15 MG TAB PO (20:30)
[2017-05-18] MEDS: AMITRIPTYLINE 50 MG TAB PO (20:31)
[2017-05-18] MEDS: ENOXAPARIN 60 MG/0.6 ML SYG SC (22:00)
[2017-05-19] MEDS: ALPRAZOLAM 1 MG TAB PO ×2 (04:50→17:05)
[2017-05-19] MEDS: PANTOPRAZOLE (EC) 40 MG TAB PO (06:02)
[2017-05-19] MEDS: CIPROFLOXACIN 250 MG TAB PO ×2 (06:02→18:40)
[2017-05-19] MEDS: QUETIAPINE 100 MG TAB PO ×2 (08:59→22:11)
[2017-05-19] MEDS: MEGESTROL (40 MG/ML) 10ML CUP PO ×2 (08:59→18:40)
[2017-05-19] MEDS: METOPROLOL 100 MG TAB PO ×2 (09:00→22:11)
[2017-05-19] MEDS: BUPROPION 75 MG TAB PO (09:02)
[2017-05-19] MEDS: DOCUSATE SODIUM 250 MG CAP PO (09:02)
[2017-05-19] MEDS: BACLOFEN 10 MG TAB PO (09:02)
[2017-05-19] MEDS: NIFEdipine (XL) 90 MG TAB PO (09:03)
[2017-05-19] MEDS: METHADONE (1 MG/ML 5 ML PO UD SYG) PO ×2 (09:07→22:12)
[2017-05-19] MEDS: [UNRECOGNIZED DRUG - REMARK] XX ×2 (09:08→21:00)
[2017-05-19] MEDS: D5-NS + KCL 20 MEQ 1,000 ML IV (16:03)
[2017-05-19] MEDS: ONDANSETRON INJ 16 MG, DEXAMETHASONE 4 MG/ML 20 MG in DEXTROSE 5% 50 ML IV (16:28)
[2017-05-19] MEDS: CARBOPLATIN IV (16:59)
[2017-05-19] MEDS: SOD CHLORIDE 0.9% IV ×2 (16:59→19:40)
[2017-05-19] MEDS: ETOPOSIDE IV (19:40)
[2017-05-19] MEDS ORDERED: VITAMIN A & D 5 GM OINT PACKET TOP (20:44)
[2017-05-19] MEDS: AMITRIPTYLINE 50 MG TAB PO (22:09)
[2017-05-19] MEDS: MIRTAZAPINE 15 MG TAB PO (22:11)
[2017-05-19] MEDS: ENOXAPARIN 60 MG/0.6 ML SYG SC (22:16)
[2017-05-19] MEDS: LORAZEPAM 2 MG INJ IV (22:50)
[2017-05-20] MEDS: CIPROFLOXACIN 250 MG TAB PO ×2 (05:26→18:35)
[2017-05-20] MEDS: PANTOPRAZOLE (EC) 40 MG TAB PO (05:26)
[2017-05-20] MEDS: ALPRAZOLAM 1 MG TAB PO (05:30)
[2017-05-20 05:47] LABS: ADD MAN DIFF? NO
[2017-05-20 05:54] LABS: WHITE BLOOD COUNT 5.4 10^3/ul (4.8-10.8)
[2017-05-20 05:54] LABS: ABNORMAL IP MESSAGE 1; HEMATOCRIT 28.1 % (37.0-47.0); HEMOGLOBIN 9.2 g/dl (12.0-16.0); LYMPHOCYTES # 0.4 10^3/ul (0.8-2.9); LYMPHOCYTES % 7.9 % (15.0-51.0); MEAN CORPUSCULAR HEMOGLOBIN 30.5 pg (29.0-33.0); MEAN CORPUSCULAR HGB CONC 32.7 g/dl (32.0-37.0); MONOCYTE # 0.3 10^3/ul (0.3-0.9); MONOCYTES % 6.1 % (0.0-11.0); NEUTROPHIL # 4.7 10^3/ul (1.6-7.5); NEUTROPHILS % 85.8 % (39.0-77.0); PLATELET COUNT 330 10^3/UL (140-415); RED BLOOD COUNT 3.02 10^6/ul (4.20-5.40); RED CELL DISTRIBUTION WIDTH 19.6 % (11.5-14.5)
[2017-05-20 06:18] LABS: ALANINE AMINOTRANSFERASE 26 IU/L (13-69); ALBUMIN 3.1 g/dl (3.3-4.9); ALBUMIN/GLOBULIN RATIO 1.06; ALKALINE PHOSPHATASE 98 IU/L (42-121); ANION GAP 16 (8-16); ASPARTATE AMINO TRANSFERASE 13 IU/L (15-46); BLOOD UREA NITROGEN 17 mg/dl (7-20); CARBON DIOXIDE 20 mmol/L (21-31); CHLORIDE 114 mmol/L (97-110); GLUCOSE 167 mg/dl (70-220); POTASSIUM 4.3 mmol/L (3.5-5.1); SODIUM 146 mmol/L (135-144)
[2017-05-20 06:32] LABS: POSITIVE DIFF @See below
[2017-05-20] MEDS: METHADONE (1 MG/ML 5 ML PO UD SYG) PO ×2 (10:28→22:11)
[2017-05-20] MEDS: BUPROPION 75 MG TAB PO (10:29)
[2017-05-20] MEDS: DOCUSATE SODIUM 250 MG CAP PO (10:30)
[2017-05-20] MEDS: BACLOFEN 10 MG TAB PO (10:30)
[2017-05-20] MEDS: NIFEdipine (XL) 90 MG TAB PO (10:30)
[2017-05-20] MEDS: QUETIAPINE 100 MG TAB PO ×2 (10:31→22:11)
[2017-05-20] MEDS: METOPROLOL 100 MG TAB PO ×2 (10:32→22:14)
[2017-05-20] MEDS: MEGESTROL (40 MG/ML) 10ML CUP PO ×2 (10:33→17:55)
[2017-05-20] MEDS: [UNRECOGNIZED DRUG - REMARK] XX ×2 (10:33→21:00)
[2017-05-20] MEDS: HYDROmorphONE 2 MG TAB PO (19:53)
[2017-05-20] MEDS: ONDANSETRON INJ 16 MG, DEXAMETHASONE 4 MG/ML 20 MG in DEXTROSE 5% 50 ML IV (19:53)
[2017-05-20] MEDS: ETOPOSIDE IV (20:31)
[2017-05-20] MEDS: SOD CHLORIDE 0.9% IV (20:31)
[2017-05-20] MEDS: AMITRIPTYLINE 50 MG TAB PO (22:10)
[2017-05-20] MEDS: MIRTAZAPINE 15 MG TAB PO (22:10)
[2017-05-20] MEDS: ENOXAPARIN 60 MG/0.6 ML SYG SC (22:13)
[2017-05-20] MEDS: LORAZEPAM 2 MG INJ IV (22:56)
[2017-05-21] MEDS: HYDROmorphONE 2 MG TAB PO ×3 (01:34→19:37)
[2017-05-21] MEDS: PANTOPRAZOLE (EC) 40 MG TAB PO (05:27)
[2017-05-21] MEDS: ALPRAZOLAM 1 MG TAB PO ×2 (05:27→22:18)
[2017-05-21] MEDS: CIPROFLOXACIN 250 MG TAB PO ×2 (05:37→19:37)
[2017-05-21] MEDS: NIFEdipine (XL) 90 MG TAB PO (08:38)
[2017-05-21] MEDS: MEGESTROL (40 MG/ML) 10ML CUP PO ×2 (08:38→17:55)
[2017-05-21] MEDS: QUETIAPINE 100 MG TAB PO ×2 (08:38→20:31)
[2017-05-21] MEDS: DOCUSATE SODIUM 250 MG CAP PO (08:38)
[2017-05-21] MEDS: BACLOFEN 10 MG TAB PO (08:38)
[2017-05-21] MEDS: METOPROLOL 100 MG TAB PO ×2 (08:39→20:32)
[2017-05-21] MEDS: [UNRECOGNIZED DRUG - REMARK] XX (08:39)
[2017-05-21] MEDS: METHADONE (1 MG/ML 5 ML PO UD SYG) PO ×2 (08:39→20:31)
[2017-05-21] MEDS: ONDANSETRON INJ 16 MG, DEXAMETHASONE 4 MG/ML 20 MG in DEXTROSE 5% 50 ML IV (20:31)
[2017-05-21] MEDS: AMITRIPTYLINE 50 MG TAB PO (20:31)
[2017-05-21] MEDS: MIRTAZAPINE 15 MG TAB PO (20:32)
[2017-05-21] MEDS: SOD CHLORIDE 0.9% IV (21:35)
[2017-05-21] MEDS: ETOPOSIDE IV (21:35)
[2017-05-21] MEDS: ENOXAPARIN 60 MG/0.6 ML SYG SC (23:15)
[2017-05-22 05:28] LABS: ADD MAN DIFF? NO
[2017-05-22 05:34] LABS: ABNORMAL IP MESSAGE 1; HEMATOCRIT 32.9 % (37.0-47.0); LYMPHOCYTES # 0.3 10^3/ul (0.8-2.9); LYMPHOCYTES % 7.7 % (15.0-51.0); MEAN CORPUSCULAR HGB CONC 33.4 g/dl (32.0-37.0); MEAN CORPUSCULAR VOLUME 92.7 fl (82.0-101.0); MONOCYTES % 0.7 % (0.0-11.0); NEUTROPHIL # 3.7 10^3/ul (1.6-7.5); NEUTROPHILS % 91.1 % (39.0-77.0); PLATELET COUNT 349 10^3/UL (140-415); RED BLOOD COUNT 3.55 10^6/ul (4.20-5.40)
[2017-05-22 05:36] LABS: POSITIVE DIFF @See below
[2017-05-22] MEDS: PANTOPRAZOLE (EC) 40 MG TAB PO (05:37)
[2017-05-22] MEDS: HYDROmorphONE 2 MG TAB PO ×2 (05:37→16:30)
[2017-05-22] MEDS: CIPROFLOXACIN 250 MG TAB PO ×2 (05:37→18:23)
[2017-05-22 06:02] LABS: ALANINE AMINOTRANSFERASE 16 IU/L (13-69); ALBUMIN 3.4 g/dl (3.3-4.9); ALBUMIN/GLOBULIN RATIO 1.06; ALKALINE PHOSPHATASE 102 IU/L (42-121); ANION GAP 18 (8-16); ASPARTATE AMINO TRANSFERASE 14 IU/L (15-46); BILIRUBIN,INDIRECT 0.1 mg/dl (0-1.1); BILIRUBIN,TOTAL 0.1 mg/dl (0.2-1.3); BLOOD UREA NITROGEN 21 mg/dl (7-20); CALCIUM 9.2 mg/dl (8.4-10.2); CARBON DIOXIDE 19 mmol/L (21-31); CHLORIDE 112 mmol/L (97-110); CREATININE 0.66 mg/dl (0.44-1.00); GLUCOSE 130 mg/dl (70-220); SODIUM 144 mmol/L (135-144); TOTAL PROTEIN 6.6 g/dl (6.1-8.1)
[2017-05-22] MEDS: [UNRECOGNIZED DRUG - REMARK] XX ×3 (07:18→21:00)
[2017-05-22] MEDS: BACLOFEN 10 MG TAB PO (08:48)
[2017-05-22] MEDS: DOCUSATE SODIUM 250 MG CAP PO (08:48)
[2017-05-22] MEDS: QUETIAPINE 100 MG TAB PO ×2 (08:48→21:20)
[2017-05-22] MEDS: MEGESTROL (40 MG/ML) 10ML CUP PO ×2 (08:48→18:23)
[2017-05-22] MEDS: METHADONE (1 MG/ML 5 ML PO UD SYG) PO ×2 (08:49→21:21)
[2017-05-22] MEDS: METOPROLOL 100 MG TAB PO ×2 (08:49→21:21)
[2017-05-22] MEDS: NIFEdipine (XL) 90 MG TAB PO (09:59)
[2017-05-22 12:15] LABS: ADD MAN DIFF? NO
[2017-05-22 12:23] LABS: HEMATOCRIT 30.7 % (37.0-47.0); HEMOGLOBIN 10.2 g/dl (12.0-16.0); LYMPHOCYTES # 0.7 10^3/ul (0.8-2.9); MEAN CORPUSCULAR HEMOGLOBIN 31.1 pg (29.0-33.0); MEAN CORPUSCULAR HGB CONC 33.2 g/dl (32.0-37.0); MEAN CORPUSCULAR VOLUME 93.6 fl (82.0-101.0); MEAN PLATELET VOLUME 9.4 fl (7.4-10.4); MONOCYTE # 0.1 10^3/ul (0.3-0.9); MONOCYTES % 1.5 % (0.0-11.0); NEUTROPHIL # 4.7 10^3/ul (1.6-7.5); NEUTROPHILS % 86.1 % (39.0-77.0); PLATELET COUNT 324 10^3/UL (140-415); RED BLOOD COUNT 3.28 10^6/ul (4.20-5.40)
[2017-05-22 12:23] LABS: WHITE BLOOD COUNT 5.4 10^3/ul (4.8-10.8)
[2017-05-22] MEDS: ALPRAZOLAM 1 MG TAB PO ×2 (16:31→23:16)
[2017-05-22] MEDS: MIRTAZAPINE 15 MG TAB PO (21:20)
[2017-05-22] MEDS: AMITRIPTYLINE 50 MG TAB PO (21:20)
[2017-05-22] MEDS: ZOLPIDEM 5 MG TAB PO (23:16)
[2017-05-22] MEDS: ENOXAPARIN 60 MG/0.6 ML SYG SC (23:17)
[2017-05-23] MEDS: PANTOPRAZOLE (EC) 40 MG TAB PO (06:22)
[2017-05-23] MEDS: CIPROFLOXACIN 250 MG TAB PO (06:22)
[2017-05-23] MEDS: [UNRECOGNIZED DRUG - REMARK] XX ×2 (09:00→21:00)
[2017-05-23] MEDS: MEGESTROL (40 MG/ML) 10ML CUP PO ×2 (09:29→17:26)
[2017-05-23] MEDS: DOCUSATE SODIUM 250 MG CAP PO (09:31)
[2017-05-23] MEDS: BACLOFEN 10 MG TAB PO (09:31)
[2017-05-23] MEDS: NIFEdipine (XL) 90 MG TAB PO (09:31)
[2017-05-23] MEDS: QUETIAPINE 100 MG TAB PO ×2 (09:31→20:23)
[2017-05-23] MEDS: METOPROLOL 100 MG TAB PO ×2 (09:32→20:24)
[2017-05-23] MEDS: METHADONE (1 MG/ML 5 ML PO UD SYG) PO ×2 (09:38→20:24)
[2017-05-23] MEDS: DOCUSATE SODIUM 100 MG CAP PO (20:23)
[2017-05-23] MEDS: HYDROmorphONE 2 MG TAB PO (20:24)
[2017-05-23] MEDS: AMITRIPTYLINE 50 MG TAB PO (20:24)
[2017-05-23] MEDS: MIRTAZAPINE 15 MG TAB PO (20:25)
[2017-05-23] MEDS ORDERED: NA PHOSPHATE/BIPHOS 133 ML ENEMA PR (20:30)
[2017-05-23] MEDS: FILGRASTIM 480 MCG INJ SC (21:18)
[2017-05-23] MEDS: MAGNESIUM HYDROXIDE 30ML CUP PO (23:21)
[2017-05-23] MEDS: ENOXAPARIN 60 MG/0.6 ML SYG SC (23:22)
[2017-05-23] MEDS: ALPRAZOLAM 1 MG TAB PO (23:26)
[2017-05-24] MEDS: ZOLPIDEM 5 MG TAB PO ×2 (00:45→22:53)
[2017-05-24] MEDS: BISACODYL 10 MG SUPP PR (04:43)
[2017-05-24 05:27] LABS: WHITE BLOOD COUNT 20.4 10^3/ul (4.8-10.8)
[2017-05-24 05:27] LABS: HEMATOCRIT 30.2 % (37.0-47.0); HEMOGLOBIN 10.1 g/dl (12.0-16.0); MEAN CORPUSCULAR HEMOGLOBIN 31.2 pg (29.0-33.0); MEAN CORPUSCULAR HGB CONC 33.4 g/dl (32.0-37.0); MEAN CORPUSCULAR VOLUME 93.2 fl (82.0-101.0); MEAN PLATELET VOLUME 9.2 fl (7.4-10.4); PLATELET COUNT 329 10^3/UL (140-415); RED BLOOD COUNT 3.24 10^6/ul (4.20-5.40); RED CELL DISTRIBUTION WIDTH 18.8 % (11.5-14.5)
[2017-05-24 05:28] LABS: ADD MAN DIFF? YES; POSITIVE DIFF @See below
[2017-05-24 05:44] LABS: ALANINE AMINOTRANSFERASE 22 IU/L (13-69); ALBUMIN 3.3 g/dl (3.3-4.9); ALBUMIN/GLOBULIN RATIO 1.17; ALKALINE PHOSPHATASE 94 IU/L (42-121); ANION GAP 16 (8-16); ASPARTATE AMINO TRANSFERASE 15 IU/L (15-46); BILIRUBIN,INDIRECT 0.2 mg/dl (0-1.1); BILIRUBIN,TOTAL 0.2 mg/dl (0.2-1.3); BLOOD UREA NITROGEN 24 mg/dl (7-20); CALCIUM 8.7 mg/dl (8.4-10.2); CARBON DIOXIDE 21 mmol/L (21-31); CHLORIDE 112 mmol/L (97-110); GLUCOSE 116 mg/dl (70-220); POTASSIUM 4.4 mmol/L (3.5-5.1); SODIUM 145 mmol/L (135-144); TOTAL PROTEIN 6.1 g/dl (6.1-8.1)
[2017-05-24 05:47] LABS: URIC ACID 5.2 mg/dl (3.1-7.9)
[2017-05-24] MEDS: PANTOPRAZOLE (EC) 40 MG TAB PO (06:20)
[2017-05-24] MEDS: HYDROmorphONE 2 MG TAB PO (06:21)
[2017-05-24 08:46] LABS: ANISOCYTOSIS 1+ (0-0); BAND NEUTROPHILS % (M) 5 % (0-4); BURR CELLS 1+ (0-0); ELLIPTO 1+ (0-0); LYMPHOCYTES % (M) 5 % (15-51); MONOCYTE #M 0.2 10^3/ul (0.3-0.9); MONOCYTES % (M) 1 % (0-11); PLATELET ESTIMATE NORMAL; POIKILOCYTOSIS 2+ (0-0); SEG NEUT #M 18.4 10^3/ul (1.6-7.5); SEGMENTED NEUTROPHILS (M) % 89 % (39-77); SMUDGE%M 1 % (0-0)
[2017-05-24] MEDS: POLYETHYLENE GLYCOL 17 GM PACKET PO (09:00)
[2017-05-24] MEDS: [UNRECOGNIZED DRUG - REMARK] XX ×2 (09:00→21:00)
[2017-05-24] MEDS: MEGESTROL (40 MG/ML) 10ML CUP PO ×2 (09:18→17:25)
[2017-05-24] MEDS: QUETIAPINE 100 MG TAB PO ×2 (09:19→20:53)
[2017-05-24] MEDS: METOPROLOL 100 MG TAB PO ×2 (09:19→20:53)
[2017-05-24] MEDS: DOCUSATE SODIUM 100 MG CAP PO ×2 (09:19→20:53)
[2017-05-24] MEDS: METHADONE (1 MG/ML 5 ML PO UD SYG) PO ×2 (09:20→20:54)
[2017-05-24] MEDS: BACLOFEN 10 MG TAB PO (09:20)
[2017-05-24] MEDS: NIFEdipine (XL) 90 MG TAB PO (09:20)
[2017-05-24] MEDS ORDERED: HYDROCORTISONE 1% 26 GM RECT CR PR (11:00)
[2017-05-24] MEDS: ENOXAPARIN 60 MG/0.6 ML SYG SC (12:44)
[2017-05-24] MEDS ORDERED: FILGRASTIM 480 MCG INJ SC ×2 (17:00)
[2017-05-24] MEDS: ALPRAZOLAM 1 MG TAB PO (17:25)
[2017-05-24] MEDS: FILGRASTIM 480 MCG INJ SC (17:25)
[2017-05-24] MEDS: MIRTAZAPINE 15 MG TAB PO (20:53)
[2017-05-24] MEDS: AMITRIPTYLINE 50 MG TAB PO (20:54)
[2017-05-24] MEDS: LORAZEPAM 2 MG INJ IV (21:13)
[2017-05-25 05:28] LABS: ABNORMAL IP MESSAGE 1; HEMATOCRIT 28.4 % (37.0-47.0); HEMOGLOBIN 9.5 g/dl (12.0-16.0); MEAN CORPUSCULAR HEMOGLOBIN 31.7 pg (29.0-33.0); MEAN CORPUSCULAR HGB CONC 33.5 g/dl (32.0-37.0); MEAN CORPUSCULAR VOLUME 94.7 fl (82.0-101.0); MEAN PLATELET VOLUME 9.4 fl (7.4-10.4); PLATELET COUNT 261 10^3/UL (140-415); RED CELL DISTRIBUTION WIDTH 19.2 % (11.5-14.5)
[2017-05-25 05:28] LABS: WHITE BLOOD COUNT 18.8 10^3/ul (4.8-10.8)
[2017-05-25] MEDS: PANTOPRAZOLE (EC) 40 MG TAB PO (05:38)
[2017-05-25 05:58] LABS: POSITIVE DIFF @See below
[2017-05-25 05:59] LABS: ADD MAN DIFF? YES
[2017-05-25] MEDS: HYDROmorphONE 2 MG TAB PO (07:00)
[2017-05-25 07:21] LABS: ANISOCYTOSIS 1+ (0-0); BAND NEUTROPHILS #M 0.3 10^3/ul (0.0-0.6); BAND NEUTROPHILS % (M) 2 % (0-4); EOSINOPHILS % (M) 2 % (0-7); HYPOCHROMASIA 1+ (0-0); LYMPHOCYTES #M 1.3 10^3/ul (0.8-2.9); LYMPHOCYTES % (M) 7 % (15-51); MICROCYTOSIS 1+ (0-0); PLATELET ESTIMATE NORMAL; POIKILOCYTOSIS 1+ (0-0); POLYCHROMASIA 1+ (0-0); SEG NEUT #M 16.8 10^3/ul (1.6-7.5); SEGMENTED NEUTROPHILS (M) % 89 % (39-77); SMUDGE%M 4 % (0-0)
[2017-05-25] MEDS: MEGESTROL (40 MG/ML) 10ML CUP PO ×2 (07:50→16:48)
[2017-05-25] MEDS: [UNRECOGNIZED DRUG - REMARK] XX ×2 (09:00→21:00)
[2017-05-25] MEDS: DOCUSATE SODIUM 100 MG CAP PO ×2 (09:00→21:02)
[2017-05-25] MEDS: POLYETHYLENE GLYCOL 17 GM PACKET PO (09:00)
[2017-05-25] MEDS: BACLOFEN 10 MG TAB PO (09:14)
[2017-05-25] MEDS: QUETIAPINE 100 MG TAB PO ×2 (09:14→21:03)
[2017-05-25] MEDS: METOPROLOL 100 MG TAB PO ×2 (09:15→21:02)
[2017-05-25] MEDS: NIFEdipine (XL) 90 MG TAB PO (09:15)
[2017-05-25] MEDS: METHADONE (1 MG/ML 5 ML PO UD SYG) PO ×2 (09:16→21:03)
[2017-05-25] MEDS: CEFAZOLIN 1 GM/50 ML (PMX) 100 ML IVPB (10:12)
[2017-05-25] MEDS: HEPARIN 1000 UNITS/ML 10 ML INJ (10:12)
[2017-05-25] MEDS: SOD CHLORIDE 0.9% 500 ML (10:13)
[2017-05-25] MEDS: LIDOCAINE 1%/EPI 30 ML INJ (10:13)
[2017-05-25 10:23] LABS: ADD UMIC YES; UR ASCORBIC ACID NEGATIVE (NEGATIVE); UR BILIRUBIN (Dip) NEGATIVE (NEGATIVE); UR BLOOD (Dip) NEGATIVE (NEGATIVE); UR CLARITY CLEAR (CLEAR); UR COLOR YELLOW (YELLOW); UR GLUCOSE (Dip) NEGATIVE (NEGATIVE); UR KETONES (Dip) NEGATIVE (NEGATIVE); UR LEUKOCYTE ESTERASE (Dip) NEGATIVE Leu/ul (NEGATIVE); UR NITRITE (Dip) NEGATIVE (NEGATIVE); UR RBC 1 /HPF (0-5); UR SPECIFIC GRAVITY (Dip) 1.016 (1.003-1.030); UR TOTAL PROTEIN (Dip) 1+ mg/dl (NEGATIVE); UR UROBILINOGEN (Dip) NEGATIVE (NEGATIVE); UR WBC 2 /HPF (0-5)
[2017-05-25] MEDS: FENTAnyl 50 MCG/ML VIAL ×4 (11:14→11:41)
[2017-05-25] MEDS: ROCURONIUM 50 MG INJ (11:16)
[2017-05-25] MEDS: PROPOFOL 20 ML ×2 (11:16→11:41)
[2017-05-25] MEDS: EPHEDrine SULFATE 50 MG/5 ML SYG ×2 (11:17→13:52)
[2017-05-25] MEDS: ONDANSETRON 4 MG INJ ×2 (11:17→12:32)
[2017-05-25] MEDS: POLYMYXIN/BACITRACIN 1L IRRIG IRR (11:30)
[2017-05-25] MEDS: ALPRAZOLAM 1 MG TAB PO (16:48)
[2017-05-25] MEDS: FILGRASTIM 480 MCG INJ SC (16:49)
[2017-05-25] MEDS: MIRTAZAPINE 15 MG TAB PO (21:02)
[2017-05-25] MEDS: AMITRIPTYLINE 50 MG TAB PO (21:03)
[2017-05-25] MEDS: ENOXAPARIN 60 MG/0.6 ML SYG SC (23:39)
[2017-05-26] MEDS: HYDROmorphONE 2 MG TAB PO ×2 (04:55→23:40)
[2017-05-26] MEDS: PANTOPRAZOLE (EC) 40 MG TAB PO (04:55)
[2017-05-26 05:55] LABS: WHITE BLOOD COUNT 10.2 10^3/ul (4.8-10.8)
[2017-05-26 05:55] LABS: ABNORMAL IP MESSAGE 1; HEMATOCRIT 26.3 % (37.0-47.0); HEMOGLOBIN 8.8 g/dl (12.0-16.0); MEAN CORPUSCULAR HEMOGLOBIN 31.7 pg (29.0-33.0); MEAN CORPUSCULAR HGB CONC 33.5 g/dl (32.0-37.0); MEAN CORPUSCULAR VOLUME 94.6 fl (82.0-101.0); MEAN PLATELET VOLUME 9.6 fl (7.4-10.4); PLATELET COUNT 200 10^3/UL (140-415); RED BLOOD COUNT 2.78 10^6/ul (4.20-5.40); RED CELL DISTRIBUTION WIDTH 18.9 % (11.5-14.5)
[2017-05-26 05:59] LABS: POSITIVE DIFF @See below
[2017-05-26 06:00] LABS: ADD MAN DIFF? YES
[2017-05-26 08:01] LABS: ANISOCYTOSIS 1+ (0-0); BAND NEUTROPHILS #M 0.3 10^3/ul (0.0-0.6); BAND NEUTROPHILS % (M) 3 % (0-4); EOSINOPHILS % (M) 4 % (0-7); LYMPHOCYTES % (M) 30 % (15-51); PLATELET ESTIMATE NORMAL; POLYCHROMASIA 2+ (0-0); SEG NEUT #M 6.6 10^3/ul (1.6-7.5); SEGMENTED NEUTROPHILS (M) % 64 % (39-77); SMUDGE%M 18 % (0-0)
[2017-05-26] MEDS: MEGESTROL (40 MG/ML) 10ML CUP PO ×2 (08:42→17:56)
[2017-05-26] MEDS: METHADONE (1 MG/ML 5 ML PO UD SYG) PO ×2 (08:44→21:14)
[2017-05-26] MEDS: METOPROLOL 100 MG TAB PO ×2 (08:45→21:12)
[2017-05-26] MEDS: BACLOFEN 10 MG TAB PO (08:45)
[2017-05-26] MEDS: DOCUSATE SODIUM 100 MG CAP PO ×2 (08:46→21:10)
[2017-05-26] MEDS: POLYETHYLENE GLYCOL 17 GM PACKET PO (08:46)
[2017-05-26] MEDS: NIFEdipine (XL) 90 MG TAB PO (08:46)
[2017-05-26] MEDS: QUETIAPINE 100 MG TAB PO ×2 (08:46→21:07)
[2017-05-26] MEDS: [UNRECOGNIZED DRUG - REMARK] XX ×2 (09:00→21:00)
[2017-05-26] MEDS: ALPRAZOLAM 1 MG TAB PO ×2 (16:20→21:09)
[2017-05-26] MEDS ORDERED: MAGNESIUM CITRATE 300 ML BTL PO (17:00)
[2017-05-26] MEDS: MAGNESIUM CITRATE 300 ML BTL PO (17:52)
[2017-05-26] MEDS: FILGRASTIM 480 MCG INJ SC (17:57)
[2017-05-26] MEDS: AMITRIPTYLINE 50 MG TAB PO (21:06)
[2017-05-26] MEDS: MIRTAZAPINE 15 MG TAB PO (21:10)
[2017-05-26] MEDS: CEFAZOLIN 1 GM/50 ML (PMX) 50 ML IVPB (23:20)
[2017-05-26] MEDS: ENOXAPARIN 60 MG/0.6 ML SYG SC (23:22)
[2017-05-26] MEDS: ZOLPIDEM 5 MG TAB PO (23:24)
[2017-05-27] MEDS: LORAZEPAM 2 MG INJ IV ×2 (03:57→23:20)
[2017-05-27] MEDS: PANTOPRAZOLE (EC) 40 MG TAB PO (06:00)
[2017-05-27] MEDS: CEFAZOLIN 1 GM/50 ML (PMX) 50 ML IVPB (06:00)
[2017-05-27 09:15] LABS: ALANINE AMINOTRANSFERASE 23 IU/L (13-69); ALBUMIN 3.1 g/dl (3.3-4.9); ALBUMIN/GLOBULIN RATIO 1.14; ALKALINE PHOSPHATASE 97 IU/L (42-121); ANION GAP 15 (8-16); ASPARTATE AMINO TRANSFERASE 12 IU/L (15-46); BLOOD UREA NITROGEN 22 mg/dl (7-20); CALCIUM 8.4 mg/dl (8.4-10.2); CARBON DIOXIDE 22 mmol/L (21-31); CHLORIDE 110 mmol/L (97-110); GLUCOSE 91 mg/dl (70-220); POTASSIUM 4.5 mmol/L (3.5-5.1); SODIUM 142 mmol/L (135-144); TOTAL PROTEIN 5.8 g/dl (6.1-8.1)
[2017-05-27 09:28] LABS: HEMATOCRIT 26.2 % (37.0-47.0); HEMOGLOBIN 8.7 g/dl (12.0-16.0); MEAN CORPUSCULAR HEMOGLOBIN 31.5 pg (29.0-33.0); MEAN CORPUSCULAR HGB CONC 33.2 g/dl (32.0-37.0); MEAN CORPUSCULAR VOLUME 94.9 fl (82.0-101.0); MEAN PLATELET VOLUME 9.6 fl (7.4-10.4); PLATELET COUNT 155 10^3/UL (140-415); RED BLOOD COUNT 2.76 10^6/ul (4.20-5.40); RED CELL DISTRIBUTION WIDTH 18.8 % (11.5-14.5)
[2017-05-27 09:39] LABS: ADD MAN DIFF? YES; POSITIVE DIFF @See below
[2017-05-27] MEDS: QUETIAPINE 100 MG TAB PO ×2 (09:46→20:53)
[2017-05-27] MEDS: MEGESTROL (40 MG/ML) 10ML CUP PO ×2 (09:46→17:55)
[2017-05-27] MEDS: DOCUSATE SODIUM 100 MG CAP PO ×2 (09:46→20:53)
[2017-05-27] MEDS: BACLOFEN 10 MG TAB PO (09:47)
[2017-05-27] MEDS: NIFEdipine (XL) 90 MG TAB PO (09:47)
[2017-05-27] MEDS: POLYETHYLENE GLYCOL 17 GM PACKET PO (09:47)
[2017-05-27] MEDS: METOPROLOL 100 MG TAB PO ×2 (09:48→20:53)
[2017-05-27] MEDS: [UNRECOGNIZED DRUG - REMARK] XX ×2 (09:49→20:58)
[2017-05-27] MEDS: ALPRAZOLAM 1 MG TAB PO ×2 (09:51→20:53)
[2017-05-27] MEDS: METHADONE (1 MG/ML 5 ML PO UD SYG) PO ×2 (09:52→20:55)
[2017-05-27 10:55] LABS: ANISOCYTOSIS 2+ (0-0); BAND NEUTROPHILS #M 0.1 10^3/ul (0.0-0.6); BAND NEUTROPHILS % (M) 3 % (0-4); BURR CELLS 1+ (0-0); EOSINOPHILS % (M) 1 % (0-7); ERYTHROBLAST% (NRBC) (M) 2 % (0-0); GIANT THROMBO% (M) 1 % (0-0); LYMPHOCYTES #M 1.3 10^3/ul (0.8-2.9); LYMPHOCYTES % (M) 33 % (15-51); MONOCYTES % (M) 1 % (0-11); PLATELET ESTIMATE NORMAL; POIKILOCYTOSIS 1+ (0-0); POLYCHROMASIA 2+ (0-0); SEG NEUT #M 2.5 10^3/ul (1.6-7.5); SEGMENTED NEUTROPHILS (M) % 62 % (39-77)
[2017-05-27] MEDS: HYDROmorphONE 2 MG TAB PO (12:50)
[2017-05-27] MEDS: LINEZOLID 600 MG/D5W (PMX) 300 ML IVPB (16:17)
[2017-05-27] MEDS: FILGRASTIM 300 MCG INJ SC (18:05)
[2017-05-27] MEDS: AMITRIPTYLINE 50 MG TAB PO (20:53)
[2017-05-27] MEDS: MIRTAZAPINE 15 MG TAB PO (20:55)
[2017-05-27] MEDS: ENOXAPARIN 60 MG/0.6 ML SYG SC (21:45)
[2017-05-28] MEDS: LINEZOLID 600 MG/D5W (PMX) 300 ML IVPB ×3 (00:24→21:04)
[2017-05-28 05:11] LABS: ABNORMAL IP MESSAGE 1; HEMATOCRIT 25.5 % (37.0-47.0); HEMOGLOBIN 8.4 g/dl (12.0-16.0); MEAN CORPUSCULAR HEMOGLOBIN 31.2 pg (29.0-33.0); MEAN CORPUSCULAR HGB CONC 32.9 g/dl (32.0-37.0); MEAN CORPUSCULAR VOLUME 94.8 fl (82.0-101.0); MEAN PLATELET VOLUME 9.2 fl (7.4-10.4); PLATELET COUNT 131 10^3/UL (140-415); RED BLOOD COUNT 2.69 10^6/ul (4.20-5.40); RED CELL DISTRIBUTION WIDTH 18.5 % (11.5-14.5)
[2017-05-28 05:11] LABS: WHITE BLOOD COUNT 1.9 10^3/ul (4.8-10.8)
[2017-05-28 05:21] LABS: POSITIVE DIFF @See below
[2017-05-28 05:22] LABS: ADD MAN DIFF? YES
[2017-05-28 05:29] LABS: ANION GAP 20 (8-16); BLOOD UREA NITROGEN 23 mg/dl (7-20); CALCIUM 8.8 mg/dl (8.4-10.2); CARBON DIOXIDE 23 mmol/L (21-31); CHLORIDE 109 mmol/L (97-110); CREATININE 0.66 mg/dl (0.44-1.00); GLUCOSE 105 mg/dl (70-220); POTASSIUM 4.5 mmol/L (3.5-5.1); SODIUM 147 mmol/L (135-144)
[2017-05-28] MEDS: PANTOPRAZOLE (EC) 40 MG TAB PO (06:37)
[2017-05-28] MEDS: [UNRECOGNIZED DRUG - REMARK] XX ×2 (09:00→21:00)
[2017-05-28] MEDS: DOCUSATE SODIUM 100 MG CAP PO ×2 (09:09→21:03)
[2017-05-28] MEDS: ALPRAZOLAM 1 MG TAB PO (09:10)
[2017-05-28] MEDS: NIFEdipine (XL) 90 MG TAB PO (09:10)
[2017-05-28] MEDS: METOPROLOL 100 MG TAB PO ×2 (09:10→21:03)
[2017-05-28] MEDS: BACLOFEN 10 MG TAB PO (09:10)
[2017-05-28] MEDS: MEGESTROL (40 MG/ML) 10ML CUP PO ×2 (09:10→18:30)
[2017-05-28] MEDS: QUETIAPINE 100 MG TAB PO ×2 (09:10→21:03)
[2017-05-28] MEDS: POLYETHYLENE GLYCOL 17 GM PACKET PO (09:11)
[2017-05-28] MEDS: METHADONE (1 MG/ML 5 ML PO UD SYG) PO ×2 (09:17→21:04)
[2017-05-28 10:02] LABS: ANISOCYTOSIS 1+ (0-0); BAND NEUTROPHILS % (M) 3 % (0-4); BURR CELLS 1+ (0-0); EOSINOPHILS % (M) 1 % (0-7); GIANT THROMBO% (M) 2 % (0-0); LYMPHOCYTES % (M) 56 % (15-51); MONOCYTES % (M) 1 % (0-11); OVALOCYTES 1+ (0-0); PLASMAC%(M) 1 % (0); PLATELET ESTIMATE DECREASED; POIKILOCYTOSIS 2+ (0-0); POLYCHROMASIA 1+ (0-0); SCHISTOCYTES 1+ (0-0); SEG NEUT #M 0.7 10^3/ul (1.6-7.5); SEGMENTED NEUTROPHILS (M) % 38 % (39-77); SMUDGE%M 6 % (0-0)
[2017-05-28] MEDS: FILGRASTIM 480 MCG INJ SC (18:29)
[2017-05-28] MEDS: AMITRIPTYLINE 50 MG TAB PO (21:02)
[2017-05-28] MEDS: MIRTAZAPINE 15 MG TAB PO (21:03)
[2017-05-28] MEDS: LORAZEPAM 2 MG INJ IV (21:11)
[2017-05-29] MEDS: ALPRAZOLAM 1 MG TAB PO ×3 (01:18→21:23)
[2017-05-29 06:41] LABS: WHITE BLOOD COUNT 1.3 10^3/ul (4.8-10.8)
[2017-05-29 06:41] LABS: ABNORMAL IP MESSAGE 1; HEMATOCRIT 24.5 % (37.0-47.0); HEMOGLOBIN 8.1 g/dl (12.0-16.0); MEAN CORPUSCULAR HEMOGLOBIN 31.5 pg (29.0-33.0); MEAN CORPUSCULAR HGB CONC 33.1 g/dl (32.0-37.0); MEAN CORPUSCULAR VOLUME 95.3 fl (82.0-101.0); MEAN PLATELET VOLUME 9.3 fl (7.4-10.4); PLATELET COUNT 103 10^3/UL (140-415); RED BLOOD COUNT 2.57 10^6/ul (4.20-5.40); RED CELL DISTRIBUTION WIDTH 18.3 % (11.5-14.5)
[2017-05-29 06:55] LABS: POSITIVE DIFF @See below
[2017-05-29 06:56] LABS: ADD MAN DIFF? YES
[2017-05-29] MEDS: POLYETHYLENE GLYCOL 17 GM PACKET PO (08:23)
[2017-05-29] MEDS: LINEZOLID 600 MG/D5W (PMX) 300 ML IVPB ×2 (08:23→21:21)
[2017-05-29] MEDS: METHADONE (1 MG/ML 5 ML PO UD SYG) PO ×2 (08:23→21:24)
[2017-05-29] MEDS: DOCUSATE SODIUM 100 MG CAP PO ×2 (08:23→21:21)
[2017-05-29] MEDS: MEGESTROL (40 MG/ML) 10ML CUP PO ×2 (08:23→17:55)
[2017-05-29] MEDS: PANTOPRAZOLE (EC) 40 MG TAB PO (08:23)
[2017-05-29] MEDS: QUETIAPINE 100 MG TAB PO ×2 (08:23→21:23)
[2017-05-29] MEDS: BACLOFEN 10 MG TAB PO (08:24)
[2017-05-29] MEDS: METOPROLOL 100 MG TAB PO ×2 (08:24→21:22)
[2017-05-29] MEDS: NIFEdipine (XL) 90 MG TAB PO (08:25)
[2017-05-29] MEDS: [UNRECOGNIZED DRUG - REMARK] XX ×2 (08:57→21:00)
[2017-05-29 09:10] LABS: ANISOCYTOSIS 1+ (0-0); BAND NEUTROPHILS #M 0.1 10^3/ul (0.0-0.6); BAND NEUTROPHILS % (M) 9 % (0-4); EOSINOPHILS % (M) 2 % (0-7); HYPOCHROMASIA 1+ (0-0); LYMPHOCYTES #M 0.9 10^3/ul (0.8-2.9); LYMPHOCYTES % (M) 76 % (15-51); PLATELET ESTIMATE DECREASED; POIKILOCYTOSIS 1+ (0-0); POLYCHROMASIA 3+ (0-0); SEG NEUT #M 0.2 10^3/ul (1.6-7.5); SEGMENTED NEUTROPHILS (M) % 13 % (39-77); SMUDGE%M 6 % (0-0)
[2017-05-29] MEDS: LORAZEPAM 2 MG INJ IV (15:10)
[2017-05-29] MEDS: MIRTAZAPINE 15 MG TAB PO (21:21)
[2017-05-29] MEDS: FILGRASTIM 480 MCG INJ SC (21:21)
[2017-05-29] MEDS: AMITRIPTYLINE 50 MG TAB PO (21:21)
[2017-05-29] MEDS: HYDROmorphONE 2 MG TAB PO (21:26)
[2017-05-30] MEDS: LORAZEPAM 2 MG INJ IV (00:23)
[2017-05-30] MEDS: PANTOPRAZOLE (EC) 40 MG TAB PO (06:20)
[2017-05-30] MEDS: HYDROmorphONE 2 MG TAB PO ×2 (06:23→14:15)
[2017-05-30] MEDS: [UNRECOGNIZED DRUG - REMARK] XX ×2 (09:00→21:00)
[2017-05-30] MEDS: POLYETHYLENE GLYCOL 17 GM PACKET PO (09:00)
[2017-05-30] MEDS: BACLOFEN 10 MG TAB PO (09:06)
[2017-05-30] MEDS: NIFEdipine (XL) 90 MG TAB PO (09:07)
[2017-05-30] MEDS: METOPROLOL 100 MG TAB PO ×2 (09:07→20:39)
[2017-05-30] MEDS: DOCUSATE SODIUM 100 MG CAP PO ×2 (09:08→20:39)
[2017-05-30] MEDS: QUETIAPINE 100 MG TAB PO ×2 (09:08→20:38)
[2017-05-30] MEDS: METHADONE (1 MG/ML 5 ML PO UD SYG) PO ×2 (09:08→20:39)
[2017-05-30] MEDS: ALPRAZOLAM 1 MG TAB PO ×2 (09:09→20:39)
[2017-05-30] MEDS: MEGESTROL (40 MG/ML) 10ML CUP PO ×2 (09:09→17:34)
[2017-05-30] MEDS: FILGRASTIM 480 MCG INJ SC (17:32)
[2017-05-30 17:51] LABS: ALANINE AMINOTRANSFERASE 22 IU/L (13-69); ALBUMIN 3.5 g/dl (3.3-4.9); ALBUMIN/GLOBULIN RATIO 1.25; ALKALINE PHOSPHATASE 82 IU/L (42-121); ANION GAP 16 (8-16); ASPARTATE AMINO TRANSFERASE 11 IU/L (15-46); BILIRUBIN,INDIRECT 0.2 mg/dl (0-1.1); BILIRUBIN,TOTAL 0.2 mg/dl (0.2-1.3); BLOOD UREA NITROGEN 22 mg/dl (7-20); CALCIUM 8.7 mg/dl (8.4-10.2); CARBON DIOXIDE 20 mmol/L (21-31); CHLORIDE 115 mmol/L (97-110); CREATININE 0.66 mg/dl (0.44-1.00); GLUCOSE 132 mg/dl (70-220); POTASSIUM 4.4 mmol/L (3.5-5.1); SODIUM 147 mmol/L (135-144); TOTAL PROTEIN 6.3 g/dl (6.1-8.1)
[2017-05-30] MEDS: MIRTAZAPINE 15 MG TAB PO (20:38)
[2017-05-30] MEDS: AMITRIPTYLINE 50 MG TAB PO (20:39)
[2017-05-31] MEDS: ZOLPIDEM 5 MG TAB PO ×2 (01:10→22:04)
[2017-05-31] MEDS: HYDROmorphONE 2 MG TAB PO ×3 (01:10→17:23)
[2017-05-31 06:04] LABS: WHITE BLOOD COUNT 1.6 10^3/ul (4.8-10.8)
[2017-05-31 06:04] LABS: ABNORMAL IP MESSAGE 1; HEMATOCRIT 23.1 % (37.0-47.0); HEMOGLOBIN 7.7 g/dl (12.0-16.0); MEAN CORPUSCULAR HEMOGLOBIN 31.3 pg (29.0-33.0); MEAN CORPUSCULAR HGB CONC 33.3 g/dl (32.0-37.0); MEAN CORPUSCULAR VOLUME 93.9 fl (82.0-101.0); MEAN PLATELET VOLUME 11.5 fl (7.4-10.4); PLATELET COUNT 53 10^3/UL (140-415); RED BLOOD COUNT 2.46 10^6/ul (4.20-5.40); RED CELL DISTRIBUTION WIDTH 18.3 % (11.5-14.5)
[2017-05-31] MEDS: PANTOPRAZOLE (EC) 40 MG TAB PO (06:24)
[2017-05-31 06:31] LABS: ADD MAN DIFF? YES; POSITIVE DIFF @See below
[2017-05-31 06:34] LABS: ALANINE AMINOTRANSFERASE 18 IU/L (13-69); ALBUMIN 3.2 g/dl (3.3-4.9); ALBUMIN/GLOBULIN RATIO 1.14; ALKALINE PHOSPHATASE 79 IU/L (42-121); ASPARTATE AMINO TRANSFERASE 9 IU/L (15-46); BLOOD UREA NITROGEN 21 mg/dl (7-20); CALCIUM 8.8 mg/dl (8.4-10.2); CARBON DIOXIDE 21 mmol/L (21-31); CHLORIDE 112 mmol/L (97-110); CREATININE 0.67 mg/dl (0.44-1.00); GLUCOSE 98 mg/dl (70-220); SODIUM 144 mmol/L (135-144)
[2017-05-31 07:28] LABS: ANION GAP 16 (8-16)
[2017-05-31 07:29] LABS: POTASSIUM 4.7 mmol/L (3.5-5.1)
[2017-05-31] MEDS: METOPROLOL 100 MG TAB PO ×2 (08:14→21:45)
[2017-05-31] MEDS: ALPRAZOLAM 1 MG TAB PO ×2 (08:14→21:43)
[2017-05-31] MEDS: BACLOFEN 10 MG TAB PO (08:14)
[2017-05-31] MEDS: POLYETHYLENE GLYCOL 17 GM PACKET PO (08:15)
[2017-05-31] MEDS: MEGESTROL (40 MG/ML) 10ML CUP PO ×2 (08:15→17:22)
[2017-05-31] MEDS: DOCUSATE SODIUM 100 MG CAP PO ×2 (08:15→21:42)
[2017-05-31] MEDS: NIFEdipine (XL) 90 MG TAB PO (08:15)
[2017-05-31] MEDS: QUETIAPINE 100 MG TAB PO ×2 (08:15→21:42)
[2017-05-31] MEDS: METHADONE (1 MG/ML 5 ML PO UD SYG) PO ×2 (08:16→21:43)
[2017-05-31] MEDS: [UNRECOGNIZED DRUG - REMARK] XX ×2 (08:16→21:00)
[2017-05-31 09:11] LABS: ANISOCYTOSIS 1+ (0-0); BAND NEUTROPHILS #M 0.1 10^3/ul (0.0-0.6); BAND NEUTROPHILS % (M) 12 % (0-4); BASOPHILS % (M) 1 % (0-2); GIANT THROMBO% (M) 1 % (0-0); HYPOCHROMASIA 1+ (0-0); LYMPHOCYTES #M 0.9 10^3/ul (0.8-2.9); LYMPHOCYTES % (M) 61 % (15-51); MONOCYTES % (M) 2 % (0-11); OVALOCYTES 1+ (0-0); PLATELET ESTIMATE SIG DECREASED; POIKILOCYTOSIS 1+ (0-0); POLYCHROMASIA 1+ (0-0); SEG NEUT #M 0.4 10^3/ul (1.6-7.5); SEGMENTED NEUTROPHILS (M) % 24 % (39-77); SMUDGE%M 2 % (0-0); TOXIC GRANULATION 1+ (0-0)
[2017-05-31] MEDS: FILGRASTIM 480 MCG INJ SC (17:21)
[2017-05-31] MEDS: MIRTAZAPINE 15 MG TAB PO (21:42)
[2017-05-31] MEDS: AMITRIPTYLINE 50 MG TAB PO (21:43)
[2017-05-31] MEDS: LORAZEPAM 2 MG INJ IV (22:05)
[2017-06-01] MEDS: ZOLPIDEM 5 MG TAB PO (00:05)
[2017-06-01] MEDS: HYDROmorphONE 2 MG TAB PO ×2 (05:00→18:51)
[2017-06-01 05:22] LABS: WHITE BLOOD COUNT 2.6 10^3/ul (4.8-10.8)
[2017-06-01 05:22] LABS: ABNORMAL IP MESSAGE 1; HEMATOCRIT 23.9 % (37.0-47.0); HEMOGLOBIN 8.2 g/dl (12.0-16.0); MEAN CORPUSCULAR HEMOGLOBIN 31.4 pg (29.0-33.0); MEAN CORPUSCULAR HGB CONC 34.3 g/dl (32.0-37.0); MEAN CORPUSCULAR VOLUME 91.6 fl (82.0-101.0); MEAN PLATELET VOLUME 11.8 fl (7.4-10.4); PLATELET COUNT 36 10^3/UL (140-415); RED BLOOD COUNT 2.61 10^6/ul (4.20-5.40); RED CELL DISTRIBUTION WIDTH 17.9 % (11.5-14.5)
[2017-06-01 05:24] LABS: POSITIVE DIFF @See below
[2017-06-01 05:25] LABS: ADD MAN DIFF? YES
[2017-06-01] MEDS: PANTOPRAZOLE (EC) 40 MG TAB PO (06:41)
[2017-06-01 06:46] LABS: PREALBUMIN 31.2 mg/dl (17.6-36.0)
[2017-06-01 07:57] LABS: ANISOCYTOSIS 1+ (0-0); BAND NEUTROPHILS #M 0.3 10^3/ul (0.0-0.6); BAND NEUTROPHILS % (M) 14 % (0-4); EOSINOPHILS % (M) 1 % (0-7); HYPOCHROMASIA 2+ (0-0); LYMPHOCYTES #M 1.2 10^3/ul (0.8-2.9); LYMPHOCYTES % (M) 49 % (15-51); METAMYELOCYTES %M 1 % (0-0); MICROCYTOSIS 1+ (0-0); MONOCYTES % (M) 3 % (0-11); PLATELET ESTIMATE DECREASED; POIKILOCYTOSIS 1+ (0-0); SEG NEUT #M 0.8 10^3/ul (1.6-7.5); SEGMENTED NEUTROPHILS (M) % 32 % (39-77); SMUDGE%M 2 % (0-0)
[2017-06-01] MEDS: DOCUSATE SODIUM 100 MG CAP PO ×2 (08:18→21:20)
[2017-06-01] MEDS: MEGESTROL (40 MG/ML) 10ML CUP PO ×2 (08:18→17:15)
[2017-06-01] MEDS: BACLOFEN 10 MG TAB PO (08:18)
[2017-06-01] MEDS: NIFEdipine (XL) 90 MG TAB PO (08:19)
[2017-06-01] MEDS: POLYETHYLENE GLYCOL 17 GM PACKET PO (08:19)
[2017-06-01] MEDS: METHADONE (1 MG/ML 5 ML PO UD SYG) PO ×2 (08:19→21:20)
[2017-06-01] MEDS: METOPROLOL 100 MG TAB PO ×2 (08:19→21:20)
[2017-06-01] MEDS: ALPRAZOLAM 1 MG TAB PO ×2 (08:20→21:20)
[2017-06-01] MEDS: [UNRECOGNIZED DRUG - REMARK] XX ×2 (08:20→20:56)
[2017-06-01] MEDS: QUETIAPINE 100 MG TAB PO ×2 (08:20→21:20)
[2017-06-01] MEDS: FILGRASTIM 480 MCG INJ SC (17:16)
[2017-06-01] MEDS: LORAZEPAM 2 MG INJ IV (18:51)
[2017-06-01] MEDS: MIRTAZAPINE 15 MG TAB PO (21:20)
[2017-06-01] MEDS: AMITRIPTYLINE 50 MG TAB PO (21:20)
[2017-06-02 06:09] LABS: ABNORMAL IP MESSAGE 1; HEMATOCRIT 23.7 % (37.0-47.0); HEMOGLOBIN 7.8 g/dl (12.0-16.0); MEAN CORPUSCULAR HEMOGLOBIN 30.7 pg (29.0-33.0); MEAN CORPUSCULAR HGB CONC 32.9 g/dl (32.0-37.0); MEAN CORPUSCULAR VOLUME 93.3 fl (82.0-101.0); RED BLOOD COUNT 2.54 10^6/ul (4.20-5.40); RED CELL DISTRIBUTION WIDTH 18.3 % (11.5-14.5)
[2017-06-02 06:14] LABS: ADD MAN DIFF? YES; PLATELET COUNT 23 10^3/UL (140-415); POSITIVE DIFF @See below
[2017-06-02] MEDS: PANTOPRAZOLE (EC) 40 MG TAB PO (06:39)
[2017-06-02] MEDS: [UNRECOGNIZED DRUG - REMARK] XX ×2 (09:00→20:30)
[2017-06-02] MEDS: METHADONE (1 MG/ML 5 ML PO UD SYG) PO ×2 (09:06→20:23)
[2017-06-02] MEDS: QUETIAPINE 100 MG TAB PO ×2 (09:07→20:23)
[2017-06-02] MEDS: BACLOFEN 10 MG TAB PO (09:07)
[2017-06-02] MEDS: DOCUSATE SODIUM 100 MG CAP PO ×2 (09:07→20:22)
[2017-06-02] MEDS: MEGESTROL (40 MG/ML) 10ML CUP PO ×2 (09:07→17:02)
[2017-06-02] MEDS: NIFEdipine (XL) 90 MG TAB PO (09:08)
[2017-06-02] MEDS: METOPROLOL 100 MG TAB PO ×2 (09:08→20:22)
[2017-06-02] MEDS: ALPRAZOLAM 1 MG TAB PO ×2 (09:08→20:23)
[2017-06-02] MEDS: POLYETHYLENE GLYCOL 17 GM PACKET PO (09:09)
[2017-06-02 09:53] LABS: ANISOCYTOSIS 1+ (0-0); BAND NEUTROPHILS #M 0.8 10^3/ul (0.0-0.6); BAND NEUTROPHILS % (M) 17 % (0-4); HYPOCHROMASIA 1+ (0-0); LYMPHOCYTES #M 1.7 10^3/ul (0.8-2.9); LYMPHOCYTES % (M) 35 % (15-51); METAMYELOCYTES #M 0.2 10^3/ul (0.0-0.0); METAMYELOCYTES %M 4 % (0-0); MONOCYTES % (M) 1 % (0-11); OVALOCYTES 1+ (0-0); PLATELET ESTIMATE DECREASED; POIKILOCYTOSIS 1+ (0-0); ROULEAU 1+ (0-0); SEG NEUT #M 2.2 10^3/ul (1.6-7.5); SEGMENTED NEUTROPHILS (M) % 43 % (39-77); SMUDGE%M 5 % (0-0); TEAR DROP CELLS 1+ (0-0)
[2017-06-02 12:52] LABS: IMMEDIATE SPIN CROSSMATCH 1 1
[2017-06-02] MEDS: HYDROmorphONE 2 MG TAB PO ×2 (15:26→23:28)
[2017-06-02] MEDS: FILGRASTIM 480 MCG INJ SC (17:03)
[2017-06-02] MEDS: AMITRIPTYLINE 50 MG TAB PO (20:22)
[2017-06-02] MEDS: MIRTAZAPINE 15 MG TAB PO (20:23)
[2017-06-02] MEDS: PYRIDOXINE 50 MG TAB PO (20:30)
[2017-06-02] MEDS: ZOLPIDEM 5 MG TAB PO (23:28)
[2017-06-03] MEDS: LORAZEPAM 2 MG INJ IV (03:21)
[2017-06-03 05:59] LABS: ABNORMAL IP MESSAGE 1; HEMATOCRIT 28.2 % (37.0-47.0); HEMOGLOBIN 9.6 g/dl (12.0-16.0); MEAN CORPUSCULAR HEMOGLOBIN 31.2 pg (29.0-33.0); MEAN CORPUSCULAR VOLUME 91.6 fl (82.0-101.0); NUCLEATED RED BLOOD CELLS% 0.5 /100WBC (0.0-0.0); RED BLOOD COUNT 3.08 10^6/ul (4.20-5.40); RED CELL DISTRIBUTION WIDTH 17.9 % (11.5-14.5)
[2017-06-03] MEDS: PANTOPRAZOLE (EC) 40 MG TAB PO (06:00)
[2017-06-03 06:34] LABS: ADD MAN DIFF? YES; PLATELET COUNT 23 10^3/UL (140-415); POSITIVE DIFF @See below
[2017-06-03] MEDS: ALPRAZOLAM 1 MG TAB PO ×2 (07:29→21:04)
[2017-06-03] MEDS: HYDROmorphONE 2 MG TAB PO (07:29)
[2017-06-03 08:11] LABS: ANISOCYTOSIS 1+ (0-0); BAND NEUTROPHILS #M 0.9 10^3/ul (0.0-0.6); BAND NEUTROPHILS % (M) 9 % (0-4); EOSINOPHILS % (M) 1 % (0-7); ERYTHROBLAST% (NRBC) (M) 3 % (0-0); LYMPHOCYTES #M 7.1 10^3/ul (0.8-2.9); LYMPHOCYTES % (M) 65 % (15-51); METAMYELOCYTES #M 0.1 10^3/ul (0.0-0.0); METAMYELOCYTES %M 1 % (0-0); MONOCYTE #M 0.2 10^3/ul (0.3-0.9); MONOCYTES % (M) 2 % (0-11); PLATELET ESTIMATE SIG DECREASED; POLYCHROMASIA 3+ (0-0); REACTIVE LYMPHOCYTES #M 0.1 10^3/ul (0.0-0.0); REACTIVE LYMPHOCYTES% (M) 1 % (0-0); SEG NEUT #M 2.4 10^3/ul (1.6-7.5); SEGMENTED NEUTROPHILS (M) % 21 % (39-77); SMUDGE%M 12 % (0-0)
[2017-06-03] MEDS: [UNRECOGNIZED DRUG - REMARK] XX ×2 (09:00→21:00)
[2017-06-03] MEDS: MEGESTROL (40 MG/ML) 10ML CUP PO ×2 (09:23→17:27)
[2017-06-03] MEDS: METHADONE (1 MG/ML 5 ML PO UD SYG) PO ×2 (09:23→21:04)
[2017-06-03] MEDS: DOCUSATE SODIUM 100 MG CAP PO ×2 (09:23→21:05)
[2017-06-03] MEDS: NIFEdipine (XL) 90 MG TAB PO (09:24)
[2017-06-03] MEDS: QUETIAPINE 100 MG TAB PO ×2 (09:24→21:05)
[2017-06-03] MEDS: BACLOFEN 10 MG TAB PO (09:24)
[2017-06-03] MEDS: PYRIDOXINE 50 MG TAB PO (09:24)
[2017-06-03] MEDS: METOPROLOL 100 MG TAB PO ×2 (09:25→21:05)
[2017-06-03] MEDS: POLYETHYLENE GLYCOL 17 GM PACKET PO (09:25)
[2017-06-03] MEDS: FILGRASTIM 480 MCG INJ SC (17:29)
[2017-06-03] MEDS: MIRTAZAPINE 15 MG TAB PO (21:04)
[2017-06-03] MEDS: AMITRIPTYLINE 50 MG TAB PO (21:05)
[2017-06-03] MEDS: ZOLPIDEM 5 MG TAB PO (23:33)
[2017-06-04 05:40] LABS: ABNORMAL IP MESSAGE 1; HEMATOCRIT 27.5 % (37.0-47.0); HEMOGLOBIN 9.3 g/dl (12.0-16.0); MEAN CORPUSCULAR HEMOGLOBIN 31.2 pg (29.0-33.0); MEAN CORPUSCULAR HGB CONC 33.8 g/dl (32.0-37.0); MEAN CORPUSCULAR VOLUME 92.3 fl (82.0-101.0); NUCLEATED RED BLOOD CELLS% 0.9 /100WBC (0.0-0.0); RED BLOOD COUNT 2.98 10^6/ul (4.20-5.40)
[2017-06-04 05:55] LABS: PLATELET COUNT 35 10^3/UL (140-415); POSITIVE DIFF @See below
[2017-06-04 05:56] LABS: ADD MAN DIFF? YES
[2017-06-04] MEDS: PANTOPRAZOLE (EC) 40 MG TAB PO (06:03)
[2017-06-04 07:52] LABS: BAND NEUTROPHILS #M 0.4 10^3/ul (0.0-0.6); BAND NEUTROPHILS % (M) 2 % (0-4); EOSINOPHILS % (M) 1 % (0-7); LYMPHOCYTES #M 6.3 10^3/ul (0.8-2.9); LYMPHOCYTES % (M) 30 % (15-51); METAMYELOCYTES #M 0.2 10^3/ul (0.0-0.0); METAMYELOCYTES %M 1 % (0-0); MONOCYTE #M 0.8 10^3/ul (0.3-0.9); MONOCYTES % (M) 4 % (0-11); MYELOCYTES #M 0.2 10^3/ul (0.0-0.0); MYELOCYTES % (M) 1 % (0-0); PLATELET ESTIMATE SIG DECREASED; REACTIVE LYMPHOCYTES #M 0.6 10^3/ul (0.0-0.0); REACTIVE LYMPHOCYTES% (M) 3 % (0-0); SEG NEUT #M 12.3 10^3/ul (1.6-7.5); SEGMENTED NEUTROPHILS (M) % 58 % (39-77); SMUDGE%M 7 % (0-0)
[2017-06-04] MEDS: [UNRECOGNIZED DRUG - REMARK] XX ×2 (09:00→21:00)
[2017-06-04] MEDS: BACLOFEN 10 MG TAB PO (09:48)
[2017-06-04] MEDS: METHADONE (1 MG/ML 5 ML PO UD SYG) PO ×2 (09:48→21:44)
[2017-06-04] MEDS: POLYETHYLENE GLYCOL 17 GM PACKET PO (09:48)
[2017-06-04] MEDS: QUETIAPINE 100 MG TAB PO ×2 (09:48→21:43)
[2017-06-04] MEDS: MEGESTROL (40 MG/ML) 10ML CUP PO ×2 (09:48→18:01)
[2017-06-04] MEDS: DOCUSATE SODIUM 100 MG CAP PO ×2 (09:48→21:43)
[2017-06-04] MEDS: PYRIDOXINE 50 MG TAB PO (09:49)
[2017-06-04] MEDS: ALPRAZOLAM 1 MG TAB PO ×2 (09:49→21:43)
[2017-06-04] MEDS: NIFEdipine (XL) 90 MG TAB PO (09:49)
[2017-06-04] MEDS: METOPROLOL 100 MG TAB PO ×2 (09:50→21:43)
[2017-06-04] MEDS: HYDROmorphONE 2 MG TAB PO (19:53)
[2017-06-04] MEDS: MIRTAZAPINE 15 MG TAB PO (21:43)
[2017-06-04] MEDS: AMITRIPTYLINE 50 MG TAB PO (21:43)
[2017-06-05 05:11] LABS: ADD MAN DIFF? NO
[2017-06-05 05:18] LABS: WHITE BLOOD COUNT 24.7 10^3/ul (4.8-10.8)
[2017-06-05 05:18] LABS: ABNORMAL IP MESSAGE 1; BASOPHILS % 0.1 % (0.0-2.0); EOSINOPHILS % 0.1 % (0.0-7.0); HEMATOCRIT 27.8 % (37.0-47.0); HEMOGLOBIN 9.3 g/dl (12.0-16.0); LYMPHOCYTES # 2.1 10^3/ul (0.8-2.9); LYMPHOCYTES % 8.4 % (15.0-51.0); MEAN CORPUSCULAR HEMOGLOBIN 30.9 pg (29.0-33.0); MEAN CORPUSCULAR HGB CONC 33.5 g/dl (32.0-37.0); MEAN CORPUSCULAR VOLUME 92.4 fl (82.0-101.0); MONOCYTE # 2.4 10^3/ul (0.3-0.9); MONOCYTES % 9.8 % (0.0-11.0); NUCLEATED RED BLOOD CELLS # 0.3 10^3/ul (0.0-0.0); NUCLEATED RED BLOOD CELLS% 1.1 /100WBC (0.0-0.0); PLATELET COUNT 50 10^3/UL (140-415); RED BLOOD COUNT 3.01 10^6/ul (4.20-5.40)
[2017-06-05 05:40] LABS: ANION GAP 16 (8-16); BLOOD UREA NITROGEN 23 mg/dl (7-20); CALCIUM 8.9 mg/dl (8.4-10.2); CARBON DIOXIDE 23 mmol/L (21-31); CHLORIDE 112 mmol/L (97-110); CREATININE 0.73 mg/dl (0.44-1.00); GLUCOSE 101 mg/dl (70-220); POTASSIUM 4.7 mmol/L (3.5-5.1); SODIUM 146 mmol/L (135-144)
[2017-06-05] MEDS: PANTOPRAZOLE (EC) 40 MG TAB PO (06:09)
[2017-06-05] MEDS: HYDROmorphONE 2 MG TAB PO (06:12)
[2017-06-05 06:38] LABS: POSITIVE DIFF @See below
[2017-06-05] MEDS: DOCUSATE SODIUM 100 MG CAP PO (08:26)
[2017-06-05] MEDS: BACLOFEN 10 MG TAB PO (08:26)
[2017-06-05] MEDS: MEGESTROL (40 MG/ML) 10ML CUP PO ×2 (08:26→17:57)
[2017-06-05] MEDS: QUETIAPINE 100 MG TAB PO (08:26)
[2017-06-05] MEDS: METOPROLOL 100 MG TAB PO (08:27)
[2017-06-05] MEDS: PYRIDOXINE 50 MG TAB PO (08:27)
[2017-06-05] MEDS: NIFEdipine (XL) 90 MG TAB PO (08:28)
[2017-06-05] MEDS: ALPRAZOLAM 1 MG TAB PO (08:28)
[2017-06-05] MEDS: POLYETHYLENE GLYCOL 17 GM PACKET PO (08:28)
[2017-06-05] MEDS: METHADONE (1 MG/ML 5 ML PO UD SYG) PO (08:29)
[2017-06-05] MEDS: [UNRECOGNIZED DRUG - REMARK] XX (08:29)
[2017-06-05 09:28] LABS: ANISOCYTOSIS 1+ (0-0); BAND NEUTROPHILS #M 4.4 10^3/ul (0.0-0.6); BAND NEUTROPHILS % (M) 18 % (0-4); ERYTHROBLAST% (NRBC) (M) 4 % (0-0); LYMPHOCYTES #M 4.9 10^3/ul (0.8-2.9); LYMPHOCYTES % (M) 20 % (15-51); METAMYELOCYTES #M 0.2 10^3/ul (0.0-0.0); METAMYELOCYTES %M 1 % (0-0); MONOCYTE #M 1.2 10^3/ul (0.3-0.9); MONOCYTES % (M) 5 % (0-11); MYELOCYTES #M 0.2 10^3/ul (0.0-0.0); MYELOCYTES % (M) 1 % (0-0); PLATELET ESTIMATE DECREASED; POLYCHROMASIA 1+ (0-0); PROMYELOCYTES #M 0.7 10^3/ul (0-0); PROMYELOCYTES % (M) 3 % (0-0); SEG NEUT #M 13.9 10^3/ul (1.6-7.5); SEGMENTED NEUTROPHILS (M) % 52 % (39-77); SMUDGE%M 4 % (0-0)
[2017-06-05] MEDS ORDERED: HEPARIN (100 UNITS/ML) 5 ML SYG CATHETER (17:30)
[2017-06-05] MEDS: HEPARIN (100 UNITS/ML) 5 ML SYG CATHETER (18:29)
== END 2017-06-05 20:00 | disposition home health service (06) | DRG 689 ==
LOC: MS1 05-18 11:48 → E/R 07:58 → MS3 11:24 → MS4 22:16
PROC: 02HV33Z Insertion of Infusion Device into Superior Vena Cava, Percutaneous Approach (ICD-10-PCS; 2017-05-19)
PROC: 3E04305 Introduction of Other Antineoplastic into Central Vein, Percutaneous Approach (ICD-10-PCS; 2017-05-19)
PROC: 0JH60WZ Insertion of Totally Implantable Vascular Access Device into Chest Subcutaneous Tissue and Fascia, Open Approach (ICD-10-PCS; principal; 2017-05-25)
PROC: 02H633Z Insertion of Infusion Device into Right Atrium, Percutaneous Approach (ICD-10-PCS; 2017-05-25)
PROC: B214YZZ Fluoroscopy of Right Heart using Other Contrast (ICD-10-PCS; 2017-05-25)
PROC: 30233N1 Transfusion of Nonautologous Red Blood Cells into Peripheral Vein, Percutaneous Approach (ICD-10-PCS; 2017-06-02)
DX: N39.0 Urinary tract infection, site not specified (principal); G92 Toxic encephalopathy; D61.810 Antineoplastic chemotherapy induced pancytopenia; C34.90 Malignant neoplasm of unspecified part of unspecified bronchus or lung; C79.51 Secondary malignant neoplasm of bone; C78.7 Secondary malignant neoplasm of liver and intrahepatic bile duct; R64 Cachexia; Z68.1 Body mass index [BMI] 19.9 or less, adult; B95.2 Enterococcus as the cause of diseases classified elsewhere; Z16.21 Resistance to vancomycin; F31.9 Bipolar disorder, unspecified; F41.9 Anxiety disorder, unspecified; G47.00 Insomnia, unspecified; G89.4 Chronic pain syndrome; I10 Essential (primary) hypertension; K59.00 Constipation, unspecified; R07.9 Chest pain, unspecified; R53.1 Weakness; R29.6 Repeated falls; R26.9 Unspecified abnormalities of gait and mobility
CPT/HCPCS: 36430; 36561; 36569; 71045; 71250; 76937; 76942; 80048; 80053; 80202; 81001; 81003; 82550; 82553; 83880; 84134; 84484; 84560; 85025; 85610; 85730; 86850; 86900; 86901; 86920; 87040; 87086; 93005; 97116; 97161; 97530; 99285-25; G0378; J9045; J9181

== ENCOUNTER 2017-06-13 13:11 | Inpatient (IN) | payer MEDICARE, OTHER ==
[2017-06-13 13:53] LABS: ADD MAN DIFF? NO
[2017-06-13 13:57] LABS: WHITE BLOOD COUNT 5.8 10^3/ul (4.8-10.8)
[2017-06-13 13:57] LABS: BASOPHILS % 0.3 % (0.0-2.0); EOSINOPHILS % 0.2 % (0.0-7.0); HEMATOCRIT 30.4 % (37.0-47.0); HEMOGLOBIN 10.2 g/dl (12.0-16.0); LYMPHOCYTES # 0.9 10^3/ul (0.8-2.9); LYMPHOCYTES % 16.3 % (15.0-51.0); MEAN CORPUSCULAR HEMOGLOBIN 31.1 pg (29.0-33.0); MEAN CORPUSCULAR HGB CONC 33.6 g/dl (32.0-37.0); MEAN CORPUSCULAR VOLUME 92.7 fl (82.0-101.0); MEAN PLATELET VOLUME 9.8 fl (7.4-10.4); MONOCYTE # 1.2 10^3/ul (0.3-0.9); MONOCYTES % 20.2 % (0.0-11.0); NEUTROPHIL # 3.6 10^3/ul (1.6-7.5); NEUTROPHILS % 62.5 % (39.0-77.0); PLATELET COUNT 430 10^3/UL (140-415); RED BLOOD COUNT 3.28 10^6/ul (4.20-5.40); RED CELL DISTRIBUTION WIDTH 18.8 % (11.5-14.5)
[2017-06-13 14:15] LABS: ALANINE AMINOTRANSFERASE 17 IU/L (13-69); ALBUMIN/GLOBULIN RATIO 1.17; ALKALINE PHOSPHATASE 102 IU/L (42-121); ANION GAP 18 (8-16); ASPARTATE AMINO TRANSFERASE 24 IU/L (15-46); BILIRUBIN,INDIRECT 0.2 mg/dl (0-1.1); BILIRUBIN,TOTAL 0.2 mg/dl (0.2-1.3); BLOOD UREA NITROGEN 7 mg/dl (7-20); CALCIUM 9.1 mg/dl (8.4-10.2); CARBON DIOXIDE 20 mmol/L (21-31); CHLORIDE 109 mmol/L (97-110); CREATININE 0.65 mg/dl (0.44-1.00); GLUCOSE 125 mg/dl (70-220); POTASSIUM 3.8 mmol/L (3.5-5.1); SODIUM 143 mmol/L (135-144); TOTAL PROTEIN 7.4 g/dl (6.1-8.1)
[2017-06-13 14:17] LABS: LACTIC ACID 1.2 mmol/L (0.5-2.0)
[2017-06-13 14:20] LABS: INR 1.01; PROTIME 13.4 Sec (11.9-14.9)
[2017-06-13 14:21] LABS: PARTIAL THROMBOPLASTIN TIME 34.3 Sec (25.0-35.0)
[2017-06-13 14:28] LABS: TROPONIN-I < 0.012 ng/ml (0.00-0.12)
[2017-06-13 14:48] LABS: ETHANOL < 10.0 mg/dl
[2017-06-13] MEDS: SOD CHLORIDE 0.9% 500 ML IV (16:33)
[2017-06-13] MEDS: LORAZEPAM 2 MG INJ IV (16:59)
[2017-06-13] MEDS: HALOPERIDOL 5 MG INJ IV (16:59)
[2017-06-13] MEDS ORDERED: ALPRAZOLAM 1 MG TAB PO (19:00)
[2017-06-13] MEDS: QUETIAPINE 100 MG TAB PO (19:53)
[2017-06-13] MEDS: AMITRIPTYLINE 50 MG TAB PO (19:54)
[2017-06-13] MEDS: HYDROmorphONE 2 MG TAB PO (19:54)
[2017-06-13] MEDS: MIRTAZAPINE 15 MG TAB PO (19:54)
[2017-06-13] MEDS: BACLOFEN 10 MG TAB PO (19:54)
[2017-06-13] MEDS: MEGESTROL 40 MG TAB PO (19:54)
[2017-06-13 20:04] LABS: LACTIC ACID 2.9 mmol/L (0.5-2.0)
[2017-06-13] MEDS ORDERED: ALPRAZOLAM 0.5 MG TAB PO (22:03)
[2017-06-13] MEDS: METHADONE 5 MG TAB PO (22:07)
[2017-06-13 22:47] LABS: LACTIC ACID 1.7 mmol/L (0.5-2.0)
[2017-06-14] MEDS: ENOXAPARIN 60 MG/0.6 ML SYG SC ×2 (00:49→23:31)
[2017-06-14] MEDS: LORAZEPAM 2 MG INJ IV (00:59)
[2017-06-14 08:34] LABS: ADD MAN DIFF? NO
[2017-06-14 08:37] LABS: WHITE BLOOD COUNT 4.6 10^3/ul (4.8-10.8)
[2017-06-14 08:37] LABS: BASOPHILS % 0.4 % (0.0-2.0); EOSINOPHILS % 0.2 % (0.0-7.0); HEMATOCRIT 29.7 % (37.0-47.0); LYMPHOCYTES % 21.6 % (15.0-51.0); MEAN CORPUSCULAR HEMOGLOBIN 31.1 pg (29.0-33.0); MEAN CORPUSCULAR HGB CONC 33.7 g/dl (32.0-37.0); MEAN CORPUSCULAR VOLUME 92.2 fl (82.0-101.0); MONOCYTES % 21.8 % (0.0-11.0); NEUTROPHIL # 2.5 10^3/ul (1.6-7.5); NEUTROPHILS % 55.6 % (39.0-77.0); PLATELET COUNT 476 10^3/UL (140-415); RED BLOOD COUNT 3.22 10^6/ul (4.20-5.40); RED CELL DISTRIBUTION WIDTH 18.6 % (11.5-14.5)
[2017-06-14 08:56] LABS: ALANINE AMINOTRANSFERASE 22 IU/L (13-69); ALBUMIN 3.7 g/dl (3.3-4.9); ALBUMIN/GLOBULIN RATIO 1.15; ALKALINE PHOSPHATASE 95 IU/L (42-121); ANION GAP 15 (8-16); ASPARTATE AMINO TRANSFERASE 18 IU/L (15-46); BILIRUBIN,INDIRECT 0.2 mg/dl (0-1.1); BILIRUBIN,TOTAL 0.2 mg/dl (0.2-1.3); BLOOD UREA NITROGEN 7 mg/dl (7-20); CARBON DIOXIDE 20 mmol/L (21-31); CHLORIDE 112 mmol/L (97-110); CREATININE 0.62 mg/dl (0.44-1.00); GLUCOSE 83 mg/dl (70-220); POTASSIUM 3.7 mmol/L (3.5-5.1); SODIUM 143 mmol/L (135-144); TOTAL PROTEIN 6.9 g/dl (6.1-8.1)
[2017-06-14] MEDS: PANTOPRAZOLE (EC) 40 MG TAB PO (09:14)
[2017-06-14] MEDS: BACLOFEN 10 MG TAB PO ×2 (09:15→21:29)
[2017-06-14] MEDS: METHADONE 5 MG TAB PO ×2 (09:15→21:29)
[2017-06-14] MEDS: DOCUSATE SODIUM 250 MG CAP PO (09:15)
[2017-06-14] MEDS: ALPRAZOLAM 0.5 MG TAB PO ×2 (09:15→23:28)
[2017-06-14] MEDS: NIFEdipine (XL) 90 MG TAB PO (09:15)
[2017-06-14] MEDS: QUETIAPINE 100 MG TAB PO ×2 (09:15→21:29)
[2017-06-14] MEDS: MIRTAZAPINE 15 MG TAB PO (21:29)
[2017-06-14] MEDS: AMITRIPTYLINE 50 MG TAB PO (21:30)
[2017-06-15 01:17] LABS: ADD UMIC YES; UR ASCORBIC ACID NEGATIVE (NEGATIVE); UR BILIRUBIN (Dip) NEGATIVE (NEGATIVE); UR BLOOD (Dip) NEGATIVE (NEGATIVE); UR CLARITY CLEAR (CLEAR); UR COLOR YELLOW (YELLOW); UR GLUCOSE (Dip) NEGATIVE (NEGATIVE); UR KETONES (Dip) TRACE mg/dL (NEGATIVE); UR LEUKOCYTE ESTERASE (Dip) NEGATIVE Leu/ul (NEGATIVE); UR MUCUS FEW /HPF (NONE SEEN); UR NITRITE (Dip) NEGATIVE (NEGATIVE); UR RBC 0 /HPF (0-5); UR SPECIFIC GRAVITY (Dip) 1.014 (1.003-1.030); UR TOTAL PROTEIN (Dip) 2+ mg/dl (NEGATIVE); UR UROBILINOGEN (Dip) NEGATIVE (NEGATIVE); UR WBC 3 /HPF (0-5)
[2017-06-15 02:37] LABS: AMPHETAMINE/METHAMPHETAMINE Negative (NEGATIVE)
[2017-06-15 02:48] LABS: BARBITURATES Negative (NEGATIVE); BENZODIAZEPINES Positive (NEGATIVE); CANNABINOIDS Negative (NEGATIVE); COCAINE Negative (NEGATIVE); OPIATES Positive (NEGATIVE)
[2017-06-15] MEDS: METHADONE 5 MG TAB PO ×2 (08:22→21:29)
[2017-06-15] MEDS: DOCUSATE SODIUM 250 MG CAP PO (08:23)
[2017-06-15] MEDS: ALPRAZOLAM 0.5 MG TAB PO ×3 (08:23→21:29)
[2017-06-15] MEDS: NIFEdipine (XL) 90 MG TAB PO (08:24)
[2017-06-15] MEDS: PANTOPRAZOLE (EC) 40 MG TAB PO (08:24)
[2017-06-15] MEDS: BACLOFEN 10 MG TAB PO ×2 (08:27→21:28)
[2017-06-15] MEDS: QUETIAPINE 100 MG TAB PO ×2 (08:30→22:30)
[2017-06-15 14:00] LABS: ADD UMIC YES; UR ASCORBIC ACID NEGATIVE (NEGATIVE); UR BACTERIA FEW /HPF (NONE SEEN); UR BILIRUBIN (Dip) NEGATIVE (NEGATIVE); UR BLOOD (Dip) NEGATIVE (NEGATIVE); UR CLARITY CLEAR (CLEAR); UR COLOR YELLOW (YELLOW); UR GLUCOSE (Dip) NEGATIVE (NEGATIVE); UR KETONES (Dip) TRACE mg/dL (NEGATIVE); UR LEUKOCYTE ESTERASE (Dip) NEGATIVE Leu/ul (NEGATIVE); UR MUCUS FEW /HPF (NONE SEEN); UR NITRITE (Dip) NEGATIVE (NEGATIVE); UR RBC 1 /HPF (0-5); UR SPECIFIC GRAVITY (Dip) 1.014 (1.003-1.030); UR TOTAL PROTEIN (Dip) 2+ mg/dl (NEGATIVE); UR UROBILINOGEN (Dip) NEGATIVE (NEGATIVE); UR WBC 7 /HPF (0-5)
[2017-06-15] MEDS: HYDROmorphONE 2 MG TAB PO (15:51)
[2017-06-15] MEDS: MIRTAZAPINE 15 MG TAB PO (21:29)
[2017-06-15] MEDS: AMITRIPTYLINE 50 MG TAB PO (21:29)
[2017-06-15] MEDS: ENOXAPARIN 60 MG/0.6 ML SYG SC (23:50)
[2017-06-16] MEDS: METHADONE 5 MG TAB PO ×2 (08:59→20:42)
[2017-06-16] MEDS: QUETIAPINE 100 MG TAB PO ×2 (09:00→20:44)
[2017-06-16] MEDS: DOCUSATE SODIUM 250 MG CAP PO (09:01)
[2017-06-16] MEDS: NIFEdipine (XL) 90 MG TAB PO (09:01)
[2017-06-16] MEDS: PANTOPRAZOLE (EC) 40 MG TAB PO (09:01)
[2017-06-16] MEDS: BACLOFEN 10 MG TAB PO (09:01)
[2017-06-16] MEDS: ALPRAZOLAM 0.5 MG TAB PO ×2 (09:02→21:48)
[2017-06-16] MEDS: LORAZEPAM 2 MG INJ IV ×2 (16:03→20:41)
[2017-06-16] MEDS: AMITRIPTYLINE 50 MG TAB PO (20:42)
[2017-06-16] MEDS: LEVOFLOXACIN 250MG/D5W (PMX) 50 ML IVPB (22:38)
[2017-06-17] MEDS: ENOXAPARIN 60 MG/0.6 ML SYG SC ×2 (00:45→23:47)
[2017-06-17] MEDS: LORAZEPAM 2 MG INJ IV ×2 (02:06→15:02)
[2017-06-17 07:42] LABS: ADD MAN DIFF? NO
[2017-06-17 07:47] LABS: BASOPHILS % 0.5 % (0.0-2.0); EOSINOPHILS % 0.5 % (0.0-7.0); HEMATOCRIT 28.7 % (37.0-47.0); HEMOGLOBIN 9.7 g/dl (12.0-16.0); LYMPHOCYTES % 24.9 % (15.0-51.0); MEAN CORPUSCULAR HEMOGLOBIN 30.9 pg (29.0-33.0); MEAN CORPUSCULAR HGB CONC 33.8 g/dl (32.0-37.0); MEAN CORPUSCULAR VOLUME 91.4 fl (82.0-101.0); MEAN PLATELET VOLUME 9.1 fl (7.4-10.4); MONOCYTE # 0.8 10^3/ul (0.3-0.9); MONOCYTES % 19.7 % (0.0-11.0); NEUTROPHIL # 2.3 10^3/ul (1.6-7.5); NEUTROPHILS % 53.9 % (39.0-77.0); PLATELET COUNT 466 10^3/UL (140-415); RED BLOOD COUNT 3.14 10^6/ul (4.20-5.40); RED CELL DISTRIBUTION WIDTH 18.6 % (11.5-14.5)
[2017-06-17 07:47] LABS: WHITE BLOOD COUNT 4.2 10^3/ul (4.8-10.8)
[2017-06-17 08:13] LABS: ALANINE AMINOTRANSFERASE 22 IU/L (13-69); ALBUMIN 3.4 g/dl (3.3-4.9); ALBUMIN/GLOBULIN RATIO 1.06; ALKALINE PHOSPHATASE 92 IU/L (42-121); ANION GAP 11 (8-16); ASPARTATE AMINO TRANSFERASE 15 IU/L (15-46); BILIRUBIN,INDIRECT 0.1 mg/dl (0-1.1); BILIRUBIN,TOTAL 0.1 mg/dl (0.2-1.3); BLOOD UREA NITROGEN 16 mg/dl (7-20); CALCIUM 9.1 mg/dl (8.4-10.2); CARBON DIOXIDE 22 mmol/L (21-31); CHLORIDE 116 mmol/L (97-110); CREATININE 0.75 mg/dl (0.44-1.00); GLUCOSE 91 mg/dl (70-220); SODIUM 145 mmol/L (135-144); TOTAL PROTEIN 6.6 g/dl (6.1-8.1)
[2017-06-17 08:16] LABS: ANION GAP 19 (8-16); BLOOD UREA NITROGEN 17 mg/dl (7-20); CALCIUM 9.1 mg/dl (8.4-10.2); CARBON DIOXIDE 18 mmol/L (21-31); CHLORIDE 112 mmol/L (97-110); CREATININE 0.71 mg/dl (0.44-1.00); GLUCOSE 89 mg/dl (70-220); POTASSIUM 4.5 mmol/L (3.5-5.1); SODIUM 144 mmol/L (135-144)
[2017-06-17] MEDS: ALPRAZOLAM 0.5 MG TAB PO ×3 (08:34→21:34)
[2017-06-17] MEDS: PANTOPRAZOLE (EC) 40 MG TAB PO (08:34)
[2017-06-17] MEDS: NIFEdipine (XL) 90 MG TAB PO (08:35)
[2017-06-17] MEDS: METHADONE 5 MG TAB PO ×2 (08:36→21:33)
[2017-06-17] MEDS: DOCUSATE SODIUM 250 MG CAP PO (08:36)
[2017-06-17] MEDS: QUETIAPINE 100 MG TAB PO ×2 (08:37→21:32)
[2017-06-17] MEDS: LEVOFLOXACIN 250MG/D5W (PMX) 50 ML IVPB (21:32)
[2017-06-17] MEDS: AMITRIPTYLINE 50 MG TAB PO (21:33)
[2017-06-18 08:31] LABS: ADD MAN DIFF? NO
[2017-06-18 08:47] LABS: WHITE BLOOD COUNT 3.9 10^3/ul (4.8-10.8)
[2017-06-18 08:47] LABS: BASOPHILS % 0.3 % (0.0-2.0); EOSINOPHILS % 0.3 % (0.0-7.0); HEMATOCRIT 28.3 % (37.0-47.0); HEMOGLOBIN 9.4 g/dl (12.0-16.0); LYMPHOCYTES # 1.3 10^3/ul (0.8-2.9); LYMPHOCYTES % 32.1 % (15.0-51.0); MEAN CORPUSCULAR HEMOGLOBIN 30.2 pg (29.0-33.0); MEAN CORPUSCULAR HGB CONC 33.2 g/dl (32.0-37.0); MEAN PLATELET VOLUME 9.1 fl (7.4-10.4); MONOCYTE # 0.7 10^3/ul (0.3-0.9); MONOCYTES % 17.7 % (0.0-11.0); NEUTROPHIL # 1.9 10^3/ul (1.6-7.5); NEUTROPHILS % 49.3 % (39.0-77.0); PLATELET COUNT 440 10^3/UL (140-415); RED BLOOD COUNT 3.11 10^6/ul (4.20-5.40); RED CELL DISTRIBUTION WIDTH 18.5 % (11.5-14.5)
[2017-06-18] MEDS: DOCUSATE SODIUM 250 MG CAP PO (09:07)
[2017-06-18] MEDS: METHADONE 5 MG TAB PO ×2 (09:07→20:32)
[2017-06-18] MEDS: PANTOPRAZOLE (EC) 40 MG TAB PO (09:08)
[2017-06-18] MEDS: QUETIAPINE 100 MG TAB PO ×2 (09:08→20:32)
[2017-06-18] MEDS: NIFEdipine (XL) 90 MG TAB PO (09:08)
[2017-06-18] MEDS: ALPRAZOLAM 0.5 MG TAB PO ×3 (09:08→20:31)
[2017-06-18 09:30] LABS: AMMONIA < 9 umol/l (9-30)
[2017-06-18 09:44] LABS: ANION GAP 16 (8-16); BLOOD UREA NITROGEN 14 mg/dl (7-20); CALCIUM 8.8 mg/dl (8.4-10.2); CARBON DIOXIDE 20 mmol/L (21-31); CHLORIDE 110 mmol/L (97-110); CREATININE 0.75 mg/dl (0.44-1.00); GLUCOSE 90 mg/dl (70-220); POTASSIUM 3.9 mmol/L (3.5-5.1); SODIUM 142 mmol/L (135-144)
[2017-06-18] MEDS: LEVOFLOXACIN 250MG/D5W (PMX) 50 ML IVPB (20:29)
[2017-06-18] MEDS: AMITRIPTYLINE 50 MG TAB PO (20:33)
[2017-06-18] MEDS: ENOXAPARIN 60 MG/0.6 ML SYG SC (23:55)
[2017-06-19 07:49] LABS: HEMATOCRIT 29.7 % (37.0-47.0); HEMOGLOBIN 9.9 g/dl (12.0-16.0)
[2017-06-19] MEDS: DOCUSATE SODIUM 250 MG CAP PO (08:40)
[2017-06-19] MEDS: PANTOPRAZOLE (EC) 40 MG TAB PO (08:41)
[2017-06-19] MEDS: METHADONE 5 MG TAB PO (08:41)
[2017-06-19] MEDS: QUETIAPINE 100 MG TAB PO ×2 (08:41→21:04)
[2017-06-19] MEDS: ALPRAZOLAM 0.5 MG TAB PO ×3 (08:41→22:07)
[2017-06-19] MEDS: NIFEdipine (XL) 90 MG TAB PO (08:43)
[2017-06-19] MEDS: AMITRIPTYLINE 50 MG TAB PO (21:00)
[2017-06-19] MEDS: METHADONE (1 MG/ML 5 ML PO UD SYG) PO (21:03)
[2017-06-19] MEDS: LEVOFLOXACIN 250MG/D5W (PMX) 50 ML IVPB (21:04)
[2017-06-19] MEDS: ZIPRASIDONE 20 MG CAP PO (21:04)
[2017-06-19] MEDS: LORAZEPAM 2 MG INJ IV (21:04)
[2017-06-19] MEDS: HYDROmorphONE 2 MG TAB PO (22:07)
[2017-06-20] MEDS: ENOXAPARIN 60 MG/0.6 ML SYG SC (00:56)
[2017-06-20] MEDS: HYDROmorphONE 2 MG TAB PO (05:25)
[2017-06-20] MEDS: LORAZEPAM 2 MG INJ IV ×2 (05:26→17:47)
[2017-06-20 07:06] LABS: ADD MAN DIFF? NO
[2017-06-20 07:14] LABS: WHITE BLOOD COUNT 3.6 10^3/ul (4.8-10.8)
[2017-06-20 07:14] LABS: BASOPHILS % 0.3 % (0.0-2.0); EOSINOPHILS % 1.1 % (0.0-7.0); HEMATOCRIT 28.4 % (37.0-47.0); HEMOGLOBIN 9.5 g/dl (12.0-16.0); LYMPHOCYTES # 1.1 10^3/ul (0.8-2.9); LYMPHOCYTES % 29.5 % (15.0-51.0); MEAN CORPUSCULAR HEMOGLOBIN 31.1 pg (29.0-33.0); MEAN CORPUSCULAR HGB CONC 33.5 g/dl (32.0-37.0); MEAN CORPUSCULAR VOLUME 93.1 fl (82.0-101.0); MEAN PLATELET VOLUME 9.1 fl (7.4-10.4); MONOCYTE # 0.6 10^3/ul (0.3-0.9); MONOCYTES % 17.8 % (0.0-11.0); NEUTROPHIL # 1.8 10^3/ul (1.6-7.5); PLATELET COUNT 395 10^3/UL (140-415); RED BLOOD COUNT 3.05 10^6/ul (4.20-5.40); RED CELL DISTRIBUTION WIDTH 18.3 % (11.5-14.5)
[2017-06-20 07:36] LABS: ALANINE AMINOTRANSFERASE 25 IU/L (13-69); ALBUMIN 3.5 g/dl (3.3-4.9); ALBUMIN/GLOBULIN RATIO 1.09; ALKALINE PHOSPHATASE 94 IU/L (42-121); ANION GAP 15 (8-16); ASPARTATE AMINO TRANSFERASE 17 IU/L (15-46); BILIRUBIN,INDIRECT 0.2 mg/dl (0-1.1); BILIRUBIN,TOTAL 0.2 mg/dl (0.2-1.3); BLOOD UREA NITROGEN 16 mg/dl (7-20); CALCIUM 8.7 mg/dl (8.4-10.2); CARBON DIOXIDE 21 mmol/L (21-31); CHLORIDE 111 mmol/L (97-110); CREATININE 0.82 mg/dl (0.44-1.00); GLUCOSE 89 mg/dl (70-220); LACTATE DEHYDROGENASE 442 IU/L (313-618); POTASSIUM 4.3 mmol/L (3.5-5.1); SODIUM 143 mmol/L (135-144); TOTAL PROTEIN 6.7 g/dl (6.1-8.1); URIC ACID 4.9 mg/dl (3.1-7.9)
[2017-06-20] MEDS: ALPRAZOLAM 0.5 MG TAB PO ×3 (08:57→20:44)
[2017-06-20] MEDS: PANTOPRAZOLE (EC) 40 MG TAB PO (08:58)
[2017-06-20] MEDS: QUETIAPINE 100 MG TAB PO ×2 (08:58→20:43)
[2017-06-20] MEDS: NIFEdipine (XL) 90 MG TAB PO (08:59)
[2017-06-20] MEDS: DOCUSATE SODIUM 250 MG CAP PO (08:59)
[2017-06-20] MEDS: ZIPRASIDONE 20 MG CAP PO ×2 (08:59→20:43)
[2017-06-20] MEDS: METHADONE (1 MG/ML 5 ML PO UD SYG) PO ×2 (08:59→20:48)
[2017-06-20] MEDS: LEVOFLOXACIN 250 MG TAB PO (17:28)
[2017-06-20 18:54] LABS: ANION GAP 11 (8-16); BLOOD UREA NITROGEN 16 mg/dl (7-20); CARBON DIOXIDE 22 mmol/L (21-31); CHLORIDE 112 mmol/L (97-110); CREATININE 0.93 mg/dl (0.44-1.00); GLUCOSE 106 mg/dl (70-220); POTASSIUM 3.7 mmol/L (3.5-5.1); SODIUM 141 mmol/L (135-144)
[2017-06-21] MEDS: AMITRIPTYLINE 50 MG TAB PO ×2 (00:15→21:00)
[2017-06-21] MEDS: ENOXAPARIN 60 MG/0.6 ML SYG SC ×2 (00:20→23:43)
[2017-06-21 05:38] LABS: ADD MAN DIFF? NO
[2017-06-21 05:46] LABS: WHITE BLOOD COUNT 4.1 10^3/ul (4.8-10.8)
[2017-06-21 05:46] LABS: BASOPHILS % 0.2 % (0.0-2.0); HEMATOCRIT 27.4 % (37.0-47.0); HEMOGLOBIN 9.2 g/dl (12.0-16.0); LYMPHOCYTES % 25.3 % (15.0-51.0); MEAN CORPUSCULAR HEMOGLOBIN 30.8 pg (29.0-33.0); MEAN CORPUSCULAR HGB CONC 33.6 g/dl (32.0-37.0); MEAN CORPUSCULAR VOLUME 91.6 fl (82.0-101.0); MEAN PLATELET VOLUME 9.3 fl (7.4-10.4); MONOCYTE # 0.6 10^3/ul (0.3-0.9); MONOCYTES % 14.6 % (0.0-11.0); NEUTROPHIL # 2.4 10^3/ul (1.6-7.5); NEUTROPHILS % 58.4 % (39.0-77.0); PLATELET COUNT 394 10^3/UL (140-415); RED BLOOD COUNT 2.99 10^6/ul (4.20-5.40); RED CELL DISTRIBUTION WIDTH 18.3 % (11.5-14.5)
[2017-06-21] MEDS: LEVOFLOXACIN 250 MG TAB PO (06:57)
[2017-06-21] MEDS: DOCUSATE SODIUM 250 MG CAP PO (08:11)
[2017-06-21] MEDS: ZIPRASIDONE 20 MG CAP PO (08:11)
[2017-06-21] MEDS: PANTOPRAZOLE (EC) 40 MG TAB PO (08:12)
[2017-06-21] MEDS: QUETIAPINE 100 MG TAB PO ×2 (08:12→21:00)
[2017-06-21] MEDS: NIFEdipine (XL) 90 MG TAB PO (08:13)
[2017-06-21] MEDS: METHADONE (1 MG/ML 5 ML PO UD SYG) PO ×2 (08:15→21:00)
[2017-06-21] MEDS: ALPRAZOLAM 0.5 MG TAB PO ×3 (09:30→21:43)
[2017-06-21] MEDS: D5-NS + KCL 20 MEQ 1,000 ML IV (19:10)
[2017-06-21] MEDS ORDERED: PE/SHARK OIL/MO/PETROL 30 GM OINT PR (21:00)
[2017-06-21] MEDS ORDERED: PRAMOXINE 1% 15 GM RECT FOAM PR (21:00)
[2017-06-21] MEDS ORDERED: HYDROCORTISONE 25 MG SUPP PR (21:00)
[2017-06-21] MEDS: MAGNESIUM HYDROXIDE 30ML CUP PO (21:43)
[2017-06-21] MEDS: DEXAMETHASONE IVPB (22:08)
[2017-06-21] MEDS: ONDANSETRON IVPB (22:08)
[2017-06-21] MEDS: DEXTROSE 5% IVPB (22:08)
[2017-06-21] MEDS: SOD CHLORIDE 0.9% IV (23:07)
[2017-06-21] MEDS: CARBOPLATIN IV (23:07)
[2017-06-22] MEDS: ETOPOSIDE IV (01:52)
[2017-06-22] MEDS: SOD CHLORIDE 0.9% IV (01:52)
[2017-06-22] MEDS: D5-NS + KCL 20 MEQ 1,000 ML IV ×3 (05:05→16:10)
[2017-06-22 05:55] LABS: ADD MAN DIFF? NO
[2017-06-22 05:58] LABS: WHITE BLOOD COUNT 3.1 10^3/ul (4.8-10.8)
[2017-06-22 05:58] LABS: ABNORMAL IP MESSAGE 1; HEMATOCRIT 27.4 % (37.0-47.0); HEMOGLOBIN 8.9 g/dl (12.0-16.0); LYMPHOCYTES # 0.3 10^3/ul (0.8-2.9); LYMPHOCYTES % 10.8 % (15.0-51.0); MEAN CORPUSCULAR HEMOGLOBIN 30.5 pg (29.0-33.0); MEAN CORPUSCULAR HGB CONC 32.5 g/dl (32.0-37.0); MEAN CORPUSCULAR VOLUME 93.8 fl (82.0-101.0); MEAN PLATELET VOLUME 9.1 fl (7.4-10.4); MONOCYTE # 0.1 10^3/ul (0.3-0.9); MONOCYTES % 1.6 % (0.0-11.0); NEUTROPHIL # 2.7 10^3/ul (1.6-7.5); PLATELET COUNT 343 10^3/UL (140-415); RED BLOOD COUNT 2.92 10^6/ul (4.20-5.40); RED CELL DISTRIBUTION WIDTH 18.3 % (11.5-14.5)
[2017-06-22] MEDS: LEVOFLOXACIN 250 MG TAB PO (05:58)
[2017-06-22 06:14] LABS: POSITIVE DIFF @See below
[2017-06-22 06:27] LABS: ALANINE AMINOTRANSFERASE 17 IU/L (13-69); ALBUMIN 3.4 g/dl (3.3-4.9); ALBUMIN/GLOBULIN RATIO 1.13; ALKALINE PHOSPHATASE 87 IU/L (42-121); ANION GAP 17 (8-16); ASPARTATE AMINO TRANSFERASE 15 IU/L (15-46); BILIRUBIN,INDIRECT 0.1 mg/dl (0-1.1); BILIRUBIN,TOTAL 0.1 mg/dl (0.2-1.3); BLOOD UREA NITROGEN 13 mg/dl (7-20); CALCIUM 8.4 mg/dl (8.4-10.2); CARBON DIOXIDE 18 mmol/L (21-31); CHLORIDE 113 mmol/L (97-110); CREATININE 0.68 mg/dl (0.44-1.00); GLUCOSE 218 mg/dl (70-220); POTASSIUM 4.6 mmol/L (3.5-5.1); SODIUM 143 mmol/L (135-144); TOTAL PROTEIN 6.4 g/dl (6.1-8.1)
[2017-06-22] MEDS: HYDROmorphONE 2 MG TAB PO ×2 (06:35→19:31)
[2017-06-22] MEDS: PANTOPRAZOLE (EC) 40 MG TAB PO (09:18)
[2017-06-22] MEDS: DOCUSATE SODIUM 250 MG CAP PO (09:19)
[2017-06-22] MEDS: ALPRAZOLAM 1 MG TAB PO ×4 (09:19→20:48)
[2017-06-22] MEDS: QUETIAPINE 100 MG TAB PO ×2 (09:19→20:47)
[2017-06-22] MEDS: METHADONE (1 MG/ML 5 ML PO UD SYG) PO ×2 (09:19→20:47)
[2017-06-22] MEDS: NIFEdipine (XL) 90 MG TAB PO (09:19)
[2017-06-22] MEDS: ALPRAZOLAM 0.5 MG TAB PO ×3 (09:25→21:11)
[2017-06-22] MEDS: MAGNESIUM HYDROXIDE 30ML CUP PO (11:53)
[2017-06-22] MEDS: AMITRIPTYLINE 50 MG TAB PO (20:46)
[2017-06-22] MEDS: MEGESTROL 40 MG TAB PO (20:47)
[2017-06-23] MEDS: HYDROmorphONE 2 MG TAB PO ×3 (00:16→17:53)
[2017-06-23] MEDS: ENOXAPARIN 60 MG/0.6 ML SYG SC (00:20)
[2017-06-23] MEDS: ONDANSETRON IVPB (01:18)
[2017-06-23] MEDS: DEXTROSE 5% IVPB (01:18)
[2017-06-23] MEDS: DEXAMETHASONE IVPB (01:18)
[2017-06-23] MEDS: ETOPOSIDE IV (02:06)
[2017-06-23] MEDS: SOD CHLORIDE 0.9% IV (02:06)
[2017-06-23] MEDS: D5-NS + KCL 20 MEQ 1,000 ML IV ×2 (05:00→20:25)
[2017-06-23 05:23] LABS: ADD MAN DIFF? NO
[2017-06-23 05:26] LABS: ABNORMAL IP MESSAGE 1; BASOPHILS % 0.2 % (0.0-2.0); EOSINOPHILS % 0.5 % (0.0-7.0); HEMATOCRIT 28.9 % (37.0-47.0); HEMOGLOBIN 9.3 g/dl (12.0-16.0); LYMPHOCYTES # 0.3 10^3/ul (0.8-2.9); LYMPHOCYTES % 4.6 % (15.0-51.0); MEAN CORPUSCULAR HEMOGLOBIN 30.3 pg (29.0-33.0); MEAN CORPUSCULAR HGB CONC 32.2 g/dl (32.0-37.0); MEAN CORPUSCULAR VOLUME 94.1 fl (82.0-101.0); MEAN PLATELET VOLUME 9.1 fl (7.4-10.4); MONOCYTE # 0.1 10^3/ul (0.3-0.9); MONOCYTES % 1.4 % (0.0-11.0); NEUTROPHIL # 5.8 10^3/ul (1.6-7.5); NEUTROPHILS % 92.8 % (39.0-77.0); PLATELET COUNT 370 10^3/UL (140-415); RED BLOOD COUNT 3.07 10^6/ul (4.20-5.40); RED CELL DISTRIBUTION WIDTH 18.2 % (11.5-14.5)
[2017-06-23 05:26] LABS: WHITE BLOOD COUNT 6.2 10^3/ul (4.8-10.8)
[2017-06-23 05:30] LABS: POSITIVE DIFF @See below
[2017-06-23] MEDS: LEVOFLOXACIN 250 MG TAB PO (05:46)
[2017-06-23] MEDS: ALPRAZOLAM 0.5 MG TAB PO ×3 (09:08→21:40)
[2017-06-23] MEDS: NIFEdipine (XL) 90 MG TAB PO (09:09)
[2017-06-23] MEDS: MAGNESIUM HYDROXIDE 30ML CUP PO (09:09)
[2017-06-23] MEDS: MEGESTROL 40 MG TAB PO ×4 (09:09→21:40)
[2017-06-23] MEDS: PANTOPRAZOLE (EC) 40 MG TAB PO (09:09)
[2017-06-23] MEDS: METHADONE (1 MG/ML 5 ML PO UD SYG) PO ×2 (09:10→20:18)
[2017-06-23] MEDS: QUETIAPINE 100 MG TAB PO ×2 (09:10→21:41)
[2017-06-23] MEDS: DOCUSATE SODIUM 250 MG CAP PO (10:16)
[2017-06-23] MEDS: HYDROCORTISONE 25 MG SUPP PR (15:12)
[2017-06-23] MEDS: AMITRIPTYLINE 50 MG TAB PO (21:40)
[2017-06-23] MEDS: HYDROCORTISONE 2.5% 30 GM RECT CR PR (21:41)
[2017-06-24] MEDS: HYDROmorphONE 2 MG TAB PO ×2 (00:50→22:23)
[2017-06-24] MEDS: ENOXAPARIN 60 MG/0.6 ML SYG SC (00:50)
[2017-06-24] MEDS: ONDANSETRON IVPB (01:43)
[2017-06-24] MEDS: DEXAMETHASONE IVPB (01:43)
[2017-06-24] MEDS: DEXTROSE 5% IVPB (01:43)
[2017-06-24] MEDS: SOD CHLORIDE 0.9% IV (02:25)
[2017-06-24] MEDS: ETOPOSIDE IV (02:25)
[2017-06-24] MEDS: D5-NS + KCL 20 MEQ 1,000 ML IV ×3 (05:30→14:35)
[2017-06-24] MEDS: LEVOFLOXACIN 250 MG TAB PO (05:33)
[2017-06-24] MEDS: ALPRAZOLAM 1 MG TAB PO (05:47)
[2017-06-24] MEDS: ALPRAZOLAM 0.5 MG TAB PO ×3 (09:00→20:55)
[2017-06-24] MEDS: NIFEdipine (XL) 90 MG TAB PO (09:35)
[2017-06-24] MEDS: PANTOPRAZOLE (EC) 40 MG TAB PO (09:35)
[2017-06-24] MEDS: MEGESTROL 40 MG TAB PO ×4 (09:36→20:56)
[2017-06-24] MEDS: DOCUSATE SODIUM 250 MG CAP PO (09:36)
[2017-06-24] MEDS: QUETIAPINE 100 MG TAB PO ×2 (09:36→20:56)
[2017-06-24] MEDS: METHADONE (1 MG/ML 5 ML PO UD SYG) PO ×2 (09:37→20:55)
[2017-06-24] MEDS: HYDROCORTISONE 2.5% 30 GM RECT CR PR ×2 (09:38→20:55)
[2017-06-24 11:34] LABS: ADD MAN DIFF? NO
[2017-06-24 11:36] LABS: WHITE BLOOD COUNT 3.2 10^3/ul (4.8-10.8)
[2017-06-24 11:36] LABS: ABNORMAL IP MESSAGE 1; HEMATOCRIT 28.1 % (37.0-47.0); HEMOGLOBIN 9.2 g/dl (12.0-16.0); LYMPHOCYTES # 0.2 10^3/ul (0.8-2.9); LYMPHOCYTES % 6.9 % (15.0-51.0); MEAN CORPUSCULAR HEMOGLOBIN 31.1 pg (29.0-33.0); MEAN CORPUSCULAR HGB CONC 32.7 g/dl (32.0-37.0); MEAN CORPUSCULAR VOLUME 94.9 fl (82.0-101.0); MEAN PLATELET VOLUME 8.8 fl (7.4-10.4); MONOCYTE # 0.1 10^3/ul (0.3-0.9); MONOCYTES % 3.4 % (0.0-11.0); NEUTROPHIL # 2.9 10^3/ul (1.6-7.5); NEUTROPHILS % 89.7 % (39.0-77.0); PLATELET COUNT 311 10^3/UL (140-415); RED BLOOD COUNT 2.96 10^6/ul (4.20-5.40); RED CELL DISTRIBUTION WIDTH 18.4 % (11.5-14.5)
[2017-06-24 11:37] LABS: POSITIVE DIFF @See below
[2017-06-24] MEDS: FILGRASTIM 480 MCG INJ SC (14:31)
[2017-06-24] MEDS: AMITRIPTYLINE 50 MG TAB PO (20:56)
[2017-06-25] MEDS: ENOXAPARIN 60 MG/0.6 ML SYG SC (00:52)
[2017-06-25] MEDS: D5-NS + KCL 20 MEQ 1,000 ML IV ×3 (00:52→21:30)
[2017-06-25] MEDS: HYDROmorphONE 2 MG TAB PO ×2 (05:12→16:43)
[2017-06-25] MEDS: LEVOFLOXACIN 250 MG TAB PO (05:12)
[2017-06-25 05:26] LABS: WHITE BLOOD COUNT 14.5 10^3/ul (4.8-10.8)
[2017-06-25 05:26] LABS: ABNORMAL IP MESSAGE 1; HEMATOCRIT 29.6 % (37.0-47.0); HEMOGLOBIN 9.7 g/dl (12.0-16.0); MEAN CORPUSCULAR HEMOGLOBIN 30.7 pg (29.0-33.0); MEAN CORPUSCULAR HGB CONC 32.8 g/dl (32.0-37.0); MEAN CORPUSCULAR VOLUME 93.7 fl (82.0-101.0); MEAN PLATELET VOLUME 9.4 fl (7.4-10.4); PLATELET COUNT 274 10^3/UL (140-415); RED BLOOD COUNT 3.16 10^6/ul (4.20-5.40); RED CELL DISTRIBUTION WIDTH 18.2 % (11.5-14.5)
[2017-06-25 05:28] LABS: ADD MAN DIFF? YES; POSITIVE DIFF @See below
[2017-06-25 05:55] LABS: ANION GAP 14 (8-16); BLOOD UREA NITROGEN 9 mg/dl (7-20); CALCIUM 8.7 mg/dl (8.4-10.2); CARBON DIOXIDE 22 mmol/L (21-31); CHLORIDE 109 mmol/L (97-110); CREATININE 0.59 mg/dl (0.44-1.00); GLUCOSE 104 mg/dl (70-220); POTASSIUM 4.3 mmol/L (3.5-5.1); SODIUM 141 mmol/L (135-144)
[2017-06-25] MEDS: METHADONE (1 MG/ML 5 ML PO UD SYG) PO ×2 (08:30→21:16)
[2017-06-25] MEDS: NIFEdipine (XL) 90 MG TAB PO (08:31)
[2017-06-25] MEDS: PANTOPRAZOLE (EC) 40 MG TAB PO (08:31)
[2017-06-25] MEDS: MEGESTROL 40 MG TAB PO ×4 (08:31→21:14)
[2017-06-25] MEDS: DOCUSATE SODIUM 250 MG CAP PO (08:31)
[2017-06-25] MEDS: ALPRAZOLAM 1 MG TAB PO ×5 (08:31→21:16)
[2017-06-25] MEDS: QUETIAPINE 100 MG TAB PO ×2 (08:32→21:16)
[2017-06-25] MEDS: HYDROCORTISONE 2.5% 30 GM RECT CR PR ×2 (08:37→21:17)
[2017-06-25 09:55] LABS: ANISOCYTOSIS 1+ (0-0); BAND NEUTROPHILS #M 1.5 10^3/ul (0.0-0.6); BAND NEUTROPHILS % (M) 11 % (0-4); BURR CELLS 1+ (0-0); EOSINOPHILS % (M) 1 % (0-7); LYMPHOCYTES #M 0.8 10^3/ul (0.8-2.9); LYMPHOCYTES % (M) 6 % (15-51); MONOCYTE #M 0.4 10^3/ul (0.3-0.9); MONOCYTES % (M) 3 % (0-11); OVALOCYTES 1+ (0-0); PLATELET ESTIMATE NORMAL; POIKILOCYTOSIS 1+ (0-0); POLYCHROMASIA 1+ (0-0); SCHISTOCYTES 1+ (0-0); SEG NEUT #M 11.7 10^3/ul (1.6-7.5); SEGMENTED NEUTROPHILS (M) % 79 % (39-77)
[2017-06-25] MEDS: MAGNESIUM HYDROXIDE 30ML CUP PO (17:25)
[2017-06-25] MEDS: FILGRASTIM 480 MCG INJ SC (17:26)
[2017-06-25] MEDS: AMITRIPTYLINE 50 MG TAB PO (21:15)
[2017-06-26] MEDS: ENOXAPARIN 60 MG/0.6 ML SYG SC (00:11)
[2017-06-26] MEDS: HYDROmorphONE 2 MG TAB PO ×3 (00:16→13:33)
[2017-06-26 05:51] LABS: WHITE BLOOD COUNT 21.9 10^3/ul (4.8-10.8)
[2017-06-26 05:51] LABS: ABNORMAL IP MESSAGE 1; HEMATOCRIT 26.3 % (37.0-47.0); HEMOGLOBIN 8.8 g/dl (12.0-16.0); MEAN CORPUSCULAR HEMOGLOBIN 30.9 pg (29.0-33.0); MEAN CORPUSCULAR HGB CONC 33.5 g/dl (32.0-37.0); MEAN CORPUSCULAR VOLUME 92.3 fl (82.0-101.0); MEAN PLATELET VOLUME 9.4 fl (7.4-10.4); PLATELET COUNT 314 10^3/UL (140-415); RED BLOOD COUNT 2.85 10^6/ul (4.20-5.40); RED CELL DISTRIBUTION WIDTH 18.4 % (11.5-14.5)
[2017-06-26 05:53] LABS: ADD MAN DIFF? YES; POSITIVE DIFF @See below
[2017-06-26 06:25] LABS: ANION GAP 15 (8-16); BLOOD UREA NITROGEN 12 mg/dl (7-20); CALCIUM 8.6 mg/dl (8.4-10.2); CARBON DIOXIDE 20 mmol/L (21-31); CHLORIDE 110 mmol/L (97-110); CREATININE 0.64 mg/dl (0.44-1.00); GLUCOSE 85 mg/dl (70-220); POTASSIUM 4.4 mmol/L (3.5-5.1); SODIUM 141 mmol/L (135-144)
[2017-06-26 06:49] LABS: MAGNESIUM 1.6 mg/dl (1.7-2.5)
[2017-06-26] MEDS: D5-NS + KCL 20 MEQ 1,000 ML IV (07:30)
[2017-06-26] MEDS: PANTOPRAZOLE (EC) 40 MG TAB PO (08:59)
[2017-06-26] MEDS: METHADONE (1 MG/ML 5 ML PO UD SYG) PO ×2 (08:59→21:03)
[2017-06-26] MEDS: DOCUSATE SODIUM 250 MG CAP PO (08:59)
[2017-06-26] MEDS: QUETIAPINE 100 MG TAB PO ×2 (08:59→21:02)
[2017-06-26] MEDS: IOHEXOL 14.3 MG(I)/ML (ADULT) BTL PO (09:00)
[2017-06-26] MEDS: NIFEdipine (XL) 90 MG TAB PO (09:02)
[2017-06-26] MEDS: ALPRAZOLAM 1 MG TAB PO ×3 (09:11→21:02)
[2017-06-26] MEDS: MEGESTROL 40 MG TAB PO ×4 (09:11→21:03)
[2017-06-26 10:26] LABS: ANISOCYTOSIS 1+ (0-0); BAND NEUTROPHILS % (M) 14 % (0-4); EOSINOPHILS % (M) 1 % (0-7); HYPOCHROMASIA 1+ (0-0); LYMPHOCYTES #M 1.5 10^3/ul (0.8-2.9); LYMPHOCYTES % (M) 7 % (15-51); MONOCYTE #M 0.2 10^3/ul (0.3-0.9); MONOCYTES % (M) 1 % (0-11); PLATELET ESTIMATE NORMAL; POIKILOCYTOSIS 1+ (0-0); POLYCHROMASIA 3+ (0-0); SEG NEUT #M 17.5 10^3/ul (1.6-7.5); SEGMENTED NEUTROPHILS (M) % 77 % (39-77); SMUDGE%M 1 % (0-0)
[2017-06-26] MEDS: SOD CHLORIDE 0.9% 100 ML (10:53)
[2017-06-26] MEDS: IOHEXOL 300MG/ML 150 ML BTL (10:53)
[2017-06-26] MEDS: HYDROCORTISONE 2.5% 30 GM RECT CR PR ×2 (11:36→21:03)
[2017-06-26 12:28] LABS: ADD UMIC YES; UR ASCORBIC ACID NEGATIVE (NEGATIVE); UR BACTERIA FEW /HPF (NONE SEEN); UR BILIRUBIN (Dip) NEGATIVE (NEGATIVE); UR BLOOD (Dip) 1+ mg/dL (NEGATIVE); UR CLARITY SLIGHTLY CLOUDY (CLEAR); UR COLOR STRAW (YELLOW); UR GLUCOSE (Dip) NEGATIVE (NEGATIVE); UR KETONES (Dip) NEGATIVE (NEGATIVE); UR LEUKOCYTE ESTERASE (Dip) NEGATIVE Leu/ul (NEGATIVE); UR NITRITE (Dip) NEGATIVE (NEGATIVE); UR RBC 2 /HPF (0-5); UR SPECIFIC GRAVITY (Dip) 1.011 (1.003-1.030); UR TOTAL PROTEIN (Dip) NEGATIVE (NEGATIVE); UR UROBILINOGEN (Dip) NEGATIVE (NEGATIVE); UR WBC 3 /HPF (0-5)
[2017-06-26] MEDS: MAGNESIUM SULFATE 1 GM/D5W 100 ML IVPB (12:54)
[2017-06-26] MEDS: FILGRASTIM 480 MCG INJ SC (18:07)
[2017-06-26] MEDS ORDERED: MAGNESIUM CITRATE 300 ML BTL PO (18:30)
[2017-06-26] MEDS: HYDROmorphONE 0.5 MG/0.5 ML SYG IV (18:42)
[2017-06-26] MEDS: MAGNESIUM CITRATE 300 ML BTL PO (18:47)
[2017-06-26] MEDS: AMITRIPTYLINE 50 MG TAB PO (21:02)
[2017-06-27] MEDS: HYDROmorphONE 0.5 MG/0.5 ML SYG IV ×3 (00:42→17:24)
[2017-06-27] MEDS: ENOXAPARIN 60 MG/0.6 ML SYG SC (00:48)
[2017-06-27 05:30] LABS: ABNORMAL IP MESSAGE 1; HEMATOCRIT 26.7 % (37.0-47.0); HEMOGLOBIN 9.1 g/dl (12.0-16.0); MEAN CORPUSCULAR HEMOGLOBIN 31.5 pg (29.0-33.0); MEAN CORPUSCULAR HGB CONC 34.1 g/dl (32.0-37.0); MEAN CORPUSCULAR VOLUME 92.4 fl (82.0-101.0); MEAN PLATELET VOLUME 9.2 fl (7.4-10.4); PLATELET COUNT 296 10^3/UL (140-415); RED BLOOD COUNT 2.89 10^6/ul (4.20-5.40); RED CELL DISTRIBUTION WIDTH 18.1 % (11.5-14.5)
[2017-06-27 05:30] LABS: WHITE BLOOD COUNT 19.3 10^3/ul (4.8-10.8)
[2017-06-27 05:41] LABS: ADD MAN DIFF? YES; POSITIVE DIFF @See below
[2017-06-27 05:55] LABS: ANION GAP 16 (8-16); BLOOD UREA NITROGEN 11 mg/dl (7-20); CALCIUM 8.4 mg/dl (8.4-10.2); CARBON DIOXIDE 22 mmol/L (21-31); CHLORIDE 107 mmol/L (97-110); CREATININE 0.62 mg/dl (0.44-1.00); GLUCOSE 91 mg/dl (70-220); SODIUM 141 mmol/L (135-144)
[2017-06-27 07:37] LABS: ANISOCYTOSIS 1+ (0-0); BAND NEUTROPHILS #M 1.3 10^3/ul (0.0-0.6); BAND NEUTROPHILS % (M) 7 % (0-4); EOSINOPHILS % (M) 1 % (0-7); GIANT THROMBO% (M) 1 % (0-0); HYPOCHROMASIA 1+ (0-0); LYMPHOCYTES #M 1.7 10^3/ul (0.8-2.9); LYMPHOCYTES % (M) 9 % (15-51); PLATELET ESTIMATE NORMAL; POLYCHROMASIA 2+ (0-0); REACTIVE LYMPHOCYTES #M 0.1 10^3/ul (0.0-0.0); REACTIVE LYMPHOCYTES% (M) 1 % (0-0); SEG NEUT #M 16.1 10^3/ul (1.6-7.5); SEGMENTED NEUTROPHILS (M) % 82 % (39-77); SMUDGE%M 9 % (0-0)
[2017-06-27] MEDS: DOCUSATE SODIUM 250 MG CAP PO (09:21)
[2017-06-27] MEDS: MEGESTROL 40 MG TAB PO ×4 (09:21→20:33)
[2017-06-27] MEDS: PANTOPRAZOLE (EC) 40 MG TAB PO (09:22)
[2017-06-27] MEDS: HYDROCORTISONE 2.5% 30 GM RECT CR PR ×2 (09:23→22:33)
[2017-06-27] MEDS: ALPRAZOLAM 1 MG TAB PO ×3 (09:23→22:32)
[2017-06-27] MEDS: QUETIAPINE 100 MG TAB PO ×2 (09:23→20:36)
[2017-06-27] MEDS: NIFEdipine (XL) 90 MG TAB PO (09:24)
[2017-06-27] MEDS: METHADONE (1 MG/ML 5 ML PO UD SYG) PO ×2 (09:24→20:37)
[2017-06-27] MEDS: AMITRIPTYLINE 50 MG TAB PO (20:33)
[2017-06-28] MEDS: ENOXAPARIN 60 MG/0.6 ML SYG SC ×2 (02:00)
[2017-06-28] MEDS: METHADONE (1 MG/ML 5 ML PO UD SYG) PO (08:12)
[2017-06-28] MEDS: MEGESTROL 40 MG TAB PO ×2 (08:12→13:11)
[2017-06-28] MEDS: ALPRAZOLAM 1 MG TAB PO ×2 (08:13→13:00)
[2017-06-28] MEDS: PANTOPRAZOLE (EC) 40 MG TAB PO (08:13)
[2017-06-28] MEDS: QUETIAPINE 100 MG TAB PO (08:13)
[2017-06-28] MEDS: DOCUSATE SODIUM 250 MG CAP PO (08:15)
[2017-06-28] MEDS: NIFEdipine (XL) 90 MG TAB PO (08:15)
[2017-06-28] MEDS: HYDROCORTISONE 2.5% 30 GM RECT CR PR (08:17)
[2017-06-28 09:41] LABS: ABNORMAL IP MESSAGE 1; HEMATOCRIT 26.8 % (37.0-47.0); MEAN CORPUSCULAR HEMOGLOBIN 30.7 pg (29.0-33.0); MEAN CORPUSCULAR HGB CONC 33.6 g/dl (32.0-37.0); MEAN CORPUSCULAR VOLUME 91.5 fl (82.0-101.0); MEAN PLATELET VOLUME 9.3 fl (7.4-10.4); PLATELET COUNT 260 10^3/UL (140-415); RED BLOOD COUNT 2.93 10^6/ul (4.20-5.40); RED CELL DISTRIBUTION WIDTH 18.2 % (11.5-14.5)
[2017-06-28 09:41] LABS: WHITE BLOOD COUNT 7.4 10^3/ul (4.8-10.8)
[2017-06-28 09:43] LABS: POSITIVE DIFF @See below
[2017-06-28 09:44] LABS: ADD MAN DIFF? YES
[2017-06-28 10:11] LABS: ANISOCYTOSIS 1+ (0-0); BAND NEUTROPHILS #M 0.4 10^3/ul (0.0-0.6); BAND NEUTROPHILS % (M) 6 % (0-4); BURR CELLS 1+ (0-0); EOSINOPHILS % (M) 1 % (0-7); GIANT THROMBO% (M) 1 % (0-0); LYMPHOCYTES #M 1.7 10^3/ul (0.8-2.9); LYMPHOCYTES % (M) 23 % (15-51); MONOCYTES % (M) 1 % (0-11); PLATELET ESTIMATE NORMAL; POIKILOCYTOSIS 1+ (0-0); POLYCHROMASIA 2+ (0-0); SEG NEUT #M 5.1 10^3/ul (1.6-7.5); SEGMENTED NEUTROPHILS (M) % 69 % (39-77); SMUDGE%M 8 % (0-0)
[2017-06-28] MEDS: HEPARIN (100 UNITS/ML) 5 ML SYG CATHETER (13:03)
[2017-06-28] MEDS ORDERED: FILGRASTIM 480 MCG INJ SC (17:00)
== END 2017-06-28 14:11 | disposition home health service (06) | DRG 689 ==
LOC: MS4 21:41 → MS1 06-20 06:09 → E/R 13:11 → MS4 17:13
PROC: 3E04305 Introduction of Other Antineoplastic into Central Vein, Percutaneous Approach (ICD-10-PCS; principal; 2017-06-14)
DX: N39.0 Urinary tract infection, site not specified (principal); G93.49 Other encephalopathy; F31.0 Bipolar disorder, current episode hypomanic; C34.90 Malignant neoplasm of unspecified part of unspecified bronchus or lung; C79.51 Secondary malignant neoplasm of bone; E46 Unspecified protein-calorie malnutrition; C78.7 Secondary malignant neoplasm of liver and intrahepatic bile duct; R44.3 Hallucinations, unspecified; E86.0 Dehydration; D70.1 Agranulocytosis secondary to cancer chemotherapy; B96.1 Klebsiella pneumoniae [K. pneumoniae] as the cause of diseases classified elsewhere; Z91.14 Patient's other noncompliance with medication regimen; Z87.891 Personal history of nicotine dependence; G47.00 Insomnia, unspecified; Z98.1 Arthrodesis status; K64.9 Unspecified hemorrhoids; Z68.21 Body mass index [BMI] 21.0-21.9, adult; K59.00 Constipation, unspecified; F60.9 Personality disorder, unspecified; F22 Delusional disorders
CPT/HCPCS: 36415; 70450; 70553; 71045; 71260; 74177; 80048; 80053; 80307; 81001; 82140; 83605; 83615; 83735; 84134; 84484; 84560; 85014; 85018; 85025; 85610; 85730; 87040; 87075; 87081; 87086; 93005; 96374; 96375; 99285-25; G0378; J9045; J9181

== ENCOUNTER 2017-10-01 13:36 | Emergency (ER) | payer MEDICARE, OTHER ==
[2017-10-01] MEDS: KETOROLAC 15 MG INJ IM (14:15)
== END 2017-10-01 14:50 | disposition home or self-care (01) ==
LOC: E/R 14:50
DX: S29.011A Strain of muscle and tendon of front wall of thorax, initial encounter (principal); M54.6 Pain in thoracic spine; V49.40XA Driver injured in collision with unspecified motor vehicles in traffic accident, initial encounter; Z87.891 Personal history of nicotine dependence
CPT/HCPCS: 71045; 96372; 99284-25